=== PATIENT | male | born 1955 | race Caucasian/White ===

== ENCOUNTER 2020-11-21 13:34 | Inpatient (IN) ==
[2020-11-21] MEDS ORDERED: SODIUM CHLORIDE 0.9% 1000ML 1,000 ML IV ONE (14:08)
[2020-11-21] MEDS ORDERED: ALBUTEROL HFA 8 GM INHALER INH ONE (14:15)
[2020-11-21] MEDS ORDERED: ACETAMINOPHEN 1,000 MG/100 ML VIAL IV STA (14:15)
--- NOTE | 2020-11-21 14:23 | Emergency Department Note ---
Impression & Plan Metastatic disease, Hematuria, Dyspnea on minimal exertion, Pancytopenia ED Provider Note NAME: NATALEE REYNOSO AGE: 65 SEX: M ARRIVES VIA: Walk-In INFORMANT: Patient, ED PROVIDER(S): Narendra Blackburn MD CHIEF COMPLAINT: Shortness of breath. PLAN: Disposition: Admit MEDICAL DECISION MAKING: The patient is a pleasant 65-year-old gentleman with a past medical history of recently diagnosed prostate cancer with metastases which was identified approximately a month ago who presents to the emergency department with worsening shortness of breath and palpitations over the past 24 hours which of ongoing for the past month but worse since getting his second COVID-19 immunization yesterday. He reports feeling some achiness in his arm but his shortness of breath gradually worsening into today with palpitations. A family friend who is had a pulse oximeter and measured his pulse ox which was normal but his heart rate was in the 130s. On arrival it had improved to the 120s. He denies any history of anxiety but both he and his brother who he lives with admit they both have been on edge and anxious since his initial presumptive diagnosis with work-up still in progress and uncertainty about his treatment plan or prognosis. Review of the patient's recent imaging demonstrate pulmonary nodules as well as evidence of bony metastases initially with suspicion of primary rectal cancer however recent colonoscopy excluded this per the patient. He does report intermittent nausea and vomiting and did vomit on the way to the emergency department but denies any nausea at this time. He denies any fevers, chills, cough, diarrhea, urinary symptoms. On arrival the patient is anxious appearing but no acute distress, afebrile, HR 120s and otherwise, stable vital signs. He appears clinically dry. Abdomen is benign. EKG without overt acute ischemia. CXR negative for acute cardiopulmonary process. WBC 2.5, H/H 97.7/28.2, and platelets 45K all decreased from October 29. Chemistry without acidosis. Phosphorus 1.0 with repletion initiated. Electrolytes unremarkable. Alk phos 1100 similar to prior. AST 65, nonspecific. Otherwise, LFTs without significant abnormality. Troponin negative/undetectable. BNP wnl. UA without convincing evidence of infection. Covid-19 PCR negative. Influenza and RSV PCR negative. CTA chest and CT abdomen/pelvis perofrmed. Negative for PE however interval progression of patient's metastatic disease is noted. Finding reviewed with the patient and he does reports he lives in an area where they frequently encounter Ticks and so Lyme screen and Anaplasma testing performed given TCP. He also reports he has had ongoing blood in his urine but denies bloody or black stool. Suspect anemia may be related to patient's metastatic disease. Iron studies performed. Given patient's symptoms in the setting of progression of anemia and metastatic disease, reasonable to admit the patient for further management. The patient and his brother at the bedside agree. Case was discussed with Nell Fuentes, with [facility] hospitalist, who will evaluate the patient for admission. Triage Nursing notes reviewed and agree them. Prior medical records reviewed Vital Signs: reviewed and remarkable for tachycardia. Differential diagnosis: Reactive airway disease, pneumonia, pneumothorax, COPD, CHF, infections, cardiac ischemia, pulmonary embolism, musculoskeletal, gastrointestinal, as well as other pathologies. ER treatment provided: See below. Diagnostics interpreted by me: ECG: Sinus tachycardia, 120 bpm, no ectopy, nonspecific ST abnormality, no overt ST elevation or depression, QTC 424, QRS 66. Cardiac Monitoring: An order for continuous cardiac monitoring was placed and demonstrated Sinus tachycardia, 120 bpm, no ectopy. Laboratory studies: See below Imaging studies: See below Consultation(s): Case was discussed with Nell Fuentes, with Dr. Carvalho, [facility], who will evaluate the patient for admission. HPI: The patient is a pleasant 65-year-old gentleman with a past medical history of recently diagnosed prostate cancer with metastases which was identified approximately a month ago who presents to the emergency department with worsening shortness of breath and palpitations over the past 24 hours which of ongoing for the past month but worse since getting his second COVID-19 immunization yesterday. He reports feeling some achiness in his arm but his shortness of breath gradually worsening into today with palpitations. A family friend who is had a pulse oximeter and measured his pulse ox which was normal but his heart rate was in the 130s. On arrival it had improved to the 120s. He denies any history of anxiety but both he and his brother who he lives with admit they both have been on edge and anxious since his initial presumptive diagnosis with work-up still in progress and uncertainty about his treatment plan or prognosis. Review of the patient's recent imaging demonstrate pulmonary nodules as well as evidence of bony metastases initially with suspicion of primary rectal cancer however recent colonoscopy excluded this per the patient. He does report intermittent nausea and vomiting and did vomit on the way to the emergency department but denies any nausea at this time. He denies any fevers, chills, cough, diarrhea, urinary symptoms. ROS: See above HPI for pertinent positives & negatives. A total of 10 systems reviewed and were otherwise negative. PAST MEDICAL HISTORY:See Below PAST SURGICAL HISTORY:See Below FAMILY HISTORY:See Below SOCIAL HISTORY:See Below HOME MEDICATIONS:See Below ALLERGIES:See Below VITALS:See Below PHYSICAL EXAMINATION: GENERAL: Awake, alert, fatigued-appearing, in no distress HENT: Normocephalic, atraumatic. Oropharynx with dry mucous membranes and otherwise unremarkable. EYES: Normal conjunctiva. Sclera non-icteric. NECK: Supple. No nuchal rigidity. FROM. No JVD. RESPIRATORY: Clear to auscultation. CARDIAC: Regular rate, normal rhythm. Extremities warm and well perfused. Pulses equal. ABDOMEN: Soft, non-distended. No tenderness to palpation. No rebound or guarding. No masses. RECTAL: Deferred. MUSCULOSKELETAL: Chest examination reveals no tenderness. The back is symmetrical on inspection without obvious abnormality. There is no CVA tenderness to palpation. No joint edema. LOWER EXTREMITIES: Calves are equal size bilaterally and non-tender. No edema. No discoloration. NEURO: Normal sensorium. No sensory or motor deficits noted. SKIN: No rash or jaundice noted. Narendra Blackburn MD Past Med/Surg History Medical History Degenerative disc disease Hearing loss Hyperlipidemia Lumbar spinal stenosis Mass of colon with enlarged lymph nodes Renal colic on right side Tinnitus Surgical History History of appendectomy History of colonoscopy History of tonsillectomy Family History Other Cancer Colorectal cancer Heart disease Lung disease Social History Smoking Status: Never smoker Second Hand Exposure: No; Hx Alcohol Use: No Hx Substance Use: No Preferred Language: Sinhala Communication Ability: Effective Hazmat Cdl A Driver Required: No Beliefs That Will Affect Care: None marital status: Single Current Living Situation: Family Other Information That Helps Us Care for You: No Feels Safe at Home: Yes Safety Concerns: Feels Safe At This Time Assistive Devices: None Allergies Allergies Allergy/AdvReac Type Severity Reaction Status Date / Time No Known Allergies Allergy Mild Verified 11/21/20 14:30 Home Meds Home Medications Medication Instructions Recorded Confirmed multivitamin 1 tab PO QAM 10/29/20 11/21/20 simvastatin 10 mg PO HS 10/29/20 11/21/20 naproxen sodium [Aleve] 440 mg PO BID PRN 11/06/20 11/21/20 Results & Data (ED) Vital Signs Vital Signs - 24 hr 11/21/20 13:43 11/21/20 14:41 Temperature 36.8 C Temperature Source Oral Pulse Rate 120 H Pulse Rhythm Regular Pulse Strength Normal Respiratory Rate 22 Respiratory Effort / Characteristics Non-Labored Respiratory Depth Normal Respiratory Pattern Regular Blood Pressure 138/86 Blood Pressure Mean 103 Blood Pressure Position Sitting Pulse Oximetry 98 95 Oxygen Delivery Method Room Air Sepsis Recent Fever Within 48 Hours No Sepsis New/Unexplained Change in Mental Status No Sepsis Action Taken by Nursing No Action Required Laboratory Data Attestation: I reviewed the patient's lab results. Result diagrams: 11/22/20 23:20 11/22/20 06:07 Lab Results 11/21/20 11/21/20 11/21/20 Range/Units 14:43 14:43 14:43 WBC 2.57 L (4.8-10.8) K/uL RBC 3.46 L (4.7-6.1) M/uL Hgb 10.1 L (14.0-18.0) g/dL Hct 29.0 L (42-52) % MCV 83.8 (80-100) fL MCH 29.2 (25-34) pg MCHC 34.8 (32-36) g/dL RDW Std Deviation 42.3 (36.4-46.3) fL RDW Coeff of Rosetta 14.1 (11.5-14.5) % Plt Count 45 L (130-400) K/uL MPV 9.8 (7.4-10.4) fL Reticulocyte % (Auto) 1.6 (0.5-2.0) % Reticulocyte # 0.06 (0.02-0.10) 10^6/uL Absolute Nucleated RBC 0.21 H (0-0) K/uL Nucleated RBC % (auto) 8.0 % Neutrophils % (Manual) 59.1 % Lymphocytes % (Manual) 30.4 % Monocytes % (Manual) 5.2 % Basophils % (Manual) 0.9 % Metamyelocytes % (Man) 0.9 % Myelocytes % (Man) 3.5 % Neutrophils # (Manual) 1.52 (1.4-6.5) K/uL Total Absolute Neuts 1.52 (1.4-6.5) K/uL Lymphocytes # (Manual) 0.78 L (1.2-3.4) K/uL Total Abs Lymphocytes 0.78 L (1.2-3.4) K/uL Monocytes # (Manual) 0.13 (0.11-0.59) K/uL Basophils # (Manual) 0.02 (0-0.2) K/uL Metamyelocytes # (Man) 0.02 H (0-0) K/uL Myelocytes # (Manual) 0.09 H (0-0) K/uL Platelet Estimate SIGNIFIC DECREASED (Normal) Polychromasia 1+ PT 11.1 (9.0-12.0) Seconds INR 1.1 (0.9-1.1) Sodium 138 (136-145) mmol/L Potassium 4.0 (3.5-5.1) mmol/L Chloride 108 H (98-107) mmol/L Carbon Dioxide 24 (21-32) mmol/L Anion Gap 6.0 (3-11) BUN 20 H (7-18) mg/dl Creatinine 1.13 (0.6-1.4) mg/dl Est Cr Clr Drug Dosing 63.8 ml/min Est GFR ( Amer) 78.1 Est GFR (Non-Af Amer) 67.4 BUN/Creatinine Ratio 18.1 (10-20) Glucose 109 H (70-99) mg/dl Calcium 9.4 (8.5-10.1) mg/dl Phosphorus 1.0 L* (2.5-4.9) mg/dl Magnesium 2.2 (1.8-2.4) mg/dl Iron 132 (35-175) mcg/dl TIBC 247 L (250-450) mcg/dl Transferrin 191 L (200-360) mg/dl Ferritin 2136.6 H (8-388) ng/ml Total Bilirubin 1.3 H (0.2-1) mg/dl Direct Bilirubin 0.1 (0-0.2) mg/dl AST 65 H (15-37) U/L ALT 55 (12-78) U/L Alkaline Phosphatase 1162 H (45-117) U/L Troponin I < 0.015 (0-0.045) ng/ml NT-Pro-B Natriuret Pep 24 (0-900) pg/ml Total Protein 6.8 (6.4-8.2) gm/dl Albumin 3.4 (3.4-5.0) gm/dl Globulin 3.4 (2.5-4.0) gm/dl Albumin/Globulin Ratio 1.0 (0.9-2) Lipase 129 (73-393) U/L TSH 0.839 (0.300-4.500) uIu/ml Anaplasma Smear See Comment Lyme Disease IgG Ab (Negative) Lyme Disease IgM Ab (Negative) COVID-19 Eval Order SARS-CoV-2 (PCR) (Negative) Influenza Type A (PCR) (Neg) Influenza Type B (PCR) (Neg) RSV (RT-PCR) (Neg) Blood Type Antibody Screen Crossmatch 11/21/20 11/21/20 11/21/20 Range/Units 14:43 14:43 16:43 WBC (4.8-10.8) K/uL RBC (4.7-6.1) M/uL Hgb (14.0-18.0) g/dL Hct (42-52) % MCV (80-100) fL MCH (25-34) pg MCHC (32-36) g/dL RDW Std Deviation (36.4-46.3) fL RDW Coeff of Rosetta (11.5-14.5) % Plt Count (130-400) K/uL MPV (7.4-10.4) fL Reticulocyte % (Auto) (0.5-2.0) % Reticulocyte # (0.02-0.10) 10^6/uL Absolute Nucleated RBC (0-0) K/uL Nucleated RBC % (auto) % Neutrophils % (Manual) % Lymphocytes % (Manual) % Monocytes % (Manual) % Basophils % (Manual) % Metamyelocytes % (Man) % Myelocytes % (Man) % Neutrophils # (Manual) (1.4-6.5) K/uL Total Absolute Neuts (1.4-6.5) K/uL Lymphocytes # (Manual) (1.2-3.4) K/uL Total Abs Lymphocytes (1.2-3.4) K/uL Monocytes # (Manual) (0.11-0.59) K/uL Basophils # (Manual) (0-0.2) K/uL Metamyelocytes # (Man) (0-0) K/uL Myelocytes # (Manual) (0-0) K/uL Platelet Estimate (Normal) Polychromasia PT (9.0-12.0) Seconds INR (0.9-1.1) Sodium (136-145) mmol/L Potassium (3.5-5.1) mmol/L Chloride (98-107) mmol/L Carbon Dioxide (21-32) mmol/L Anion Gap (3-11) BUN (7-18) mg/dl Creatinine (0.6-1.4) mg/dl Est Cr Clr Drug Dosing ml/min Est GFR ( Amer) Est GFR (Non-Af Amer) BUN/Creatinine Ratio (10-20) Glucose (70-99) mg/dl Calcium (8.5-10.1) mg/dl Phosphorus (2.5-4.9) mg/dl Magnesium (1.8-2.4) mg/dl Iron (35-175) mcg/dl TIBC (250-450) mcg/dl Transferrin (200-360) mg/dl Ferritin (8-388) ng/ml Total Bilirubin (0.2-1) mg/dl Direct Bilirubin (0-0.2) mg/dl AST (15-37) U/L ALT (12-78) U/L Alkaline Phosphatase (45-117) U/L Troponin I (0-0.045) ng/ml NT-Pro-B Natriuret Pep (0-900) pg/ml Total Protein (6.4-8.2) gm/dl Albumin (3.4-5.0) gm/dl Globulin (2.5-4.0) gm/dl Albumin/Globulin Ratio (0.9-2) Lipase (73-393) U/L TSH (0.300-4.500) uIu/ml Anaplasma Smear Lyme Disease IgG Ab Negative (Negative) Lyme Disease IgM Ab Negative (Negative) COVID-19 Eval Order [facility]Rsv at [facility] SARS-CoV-2 (PCR) NEGATIVE (Negative) Influenza Type A (PCR) Negative (Neg) Influenza Type B (PCR) Negative (Neg) RSV (RT-PCR) Negative (Neg) Blood Type Antibody Screen Crossmatch 11/21/20 Range/Units 16:47 WBC (4.8-10.8) K/uL RBC (4.7-6.1) M/uL Hgb (14.0-18.0) g/dL Hct (42-52) % MCV (80-100) fL MCH (25-34) pg MCHC (32-36) g/dL RDW Std Deviation (36.4-46.3) fL RDW Coeff of Rosetta (11.5-14.5) % Plt Count (130-400) K/uL MPV (7.4-10.4) fL Reticulocyte % (Auto) (0.5-2.0) % Reticulocyte # (0.02-0.10) 10^6/uL Absolute Nucleated RBC (0-0) K/uL Nucleated RBC % (auto) % Neutrophils % (Manual) % Lymphocytes % (Manual) % Monocytes % (Manual) % Basophils % (Manual) % Metamyelocytes % (Man) % Myelocytes % (Man) % Neutrophils # (Manual) (1.4-6.5) K/uL Total Absolute Neuts (1.4-6.5) K/uL Lymphocytes # (Manual) (1.2-3.4) K/uL Total Abs Lymphocytes (1.2-3.4) K/uL Monocytes # (Manual) (0.11-0.59) K/uL Basophils # (Manual) (0-0.2) K/uL Metamyelocytes # (Man) (0-0) K/uL Myelocytes # (Manual) (0-0) K/uL Platelet Estimate (Normal) Polychromasia PT (9.0-12.0) Seconds INR (0.9-1.1) Sodium (136-145) mmol/L Potassium (3.5-5.1) mmol/L Chloride (98-107) mmol/L Carbon Dioxide (21-32) mmol/L Anion Gap (3-11) BUN (7-18) mg/dl Creatinine (0.6-1.4) mg/dl Est Cr Clr Drug Dosing ml/min Est GFR ( Amer) Est GFR (Non-Af Amer) BUN/Creatinine Ratio (10-20) Glucose (70-99) mg/dl Calcium (8.5-10.1) mg/dl Phosphorus (2.5-4.9) mg/dl Magnesium (1.8-2.4) mg/dl Iron (35-175) mcg/dl TIBC (250-450) mcg/dl Transferrin (200-360) mg/dl Ferritin (8-388) ng/ml Total Bilirubin (0.2-1) mg/dl Direct Bilirubin (0-0.2) mg/dl AST (15-37) U/L ALT (12-78) U/L Alkaline Phosphatase (45-117) U/L Troponin I (0-0.045) ng/ml NT-Pro-B Natriuret Pep (0-900) pg/ml Total Protein (6.4-8.2) gm/dl Albumin (3.4-5.0) gm/dl Globulin (2.5-4.0) gm/dl Albumin/Globulin Ratio (0.9-2) Lipase (73-393) U/L TSH (0.300-4.500) uIu/ml Anaplasma Smear Lyme Disease IgG Ab (Negative) Lyme Disease IgM Ab (Negative) COVID-19 Eval Order SARS-CoV-2 (PCR) (Negative) Influenza Type A (PCR) (Neg) Influenza Type B (PCR) (Neg) RSV (RT-PCR) (Neg) Blood Type O Positive Antibody Screen NEGATIVE Crossmatch See Detail Administered Medications Acetaminophen (Acetaminophen 325 Mg Tab) 650 mg PO Q4H PRN PRN Reason: Pain or Fever Stop: 12/21/20 20:52 Last Admin: 11/22/20 16:56 Dose: 650 mg Documented by: [id number] Admin: 11/22/20 00:19 Dose: 650 mg Documented by: [id number] Bicalutamide (Bicalutamide 50 Mg Tab) 50 mg PO QAM [facility] Stop: 12/22/20 15:14 Last Admin: 11/22/20 16:12 Dose: 50 mg Documented by: [id number] Cosigned by: [id number] Multivitamins (Multivitamin Tab) 1 tab PO QAM LINA Stop: 12/22/20 08:59 Last Admin: 11/22/20 08:43 Dose: 1 tab Documented by: [id number] Potassium Phosphate (Pot Phosphate Monobasic W/ Sod Tab) 1 tab PO QID LINA Stop: 12/21/20 20:59 Last Admin: 11/22/20 20:36 Dose: 1 tab Documented by: [id number] Admin: 11/22/20 16:52 Dose: 1 tab Documented by: [id number] Admin: 11/22/20 13:39 Dose: 1 tab Documented by: [id number] Admin: 11/22/20 08:42 Dose: 1 tab Documented by: [id number] Admin: 11/21/20 22:08 Dose: 1 tab Documented by: [id number] Simvastatin (Simvastatin 10 Mg Tab) 10 mg PO HS LINA Stop: 12/21/20 20:59 Last Admin: 11/22/20 20:36 Dose: 10 mg Documented by: [id number] Admin: 11/21/20 22:08 Dose: 10 mg Documented by: [id number] Discontinued Medications Albuterol (Albuterol Hfa 8 Gm Inhaler) 2 puffs INH NOW ONE Stop: 11/21/20 14:16 Last Admin: 11/21/20 14:49 Dose: 2 puffs Documented by: [id number] Guaifenesin (Guaifenesin 600 Mg Tabcr) 600 mg PO Q12 LINA Stop: 12/21/20 20:59 Last Admin: 11/22/20 01:08 Dose: Not Given Documented by: [id number] Sodium Chloride (Nss 1000ml) 1,000 mls @ 999 mls/hr IV .Q1H1M ONE Stop: 11/21/20 15:08 Last Infusion: 11/21/20 15:51 Dose: 0 mls/hr Documented by: [id number] Admin: 11/21/20 14:49 Dose: 999 mls/hr Documented by: [id number] Acetaminophen (Ofirmev) 1,000 mg in 100 mls @ 400 mls/hr IV NOW STA Stop: 11/21/20 14:29 Last Infusion: 11/21/20 15:35 Dose: 0 mls/hr Documented by: [id number] Admin: 11/21/20 14:49 Dose: 400 mls/hr Documented by: [id number] Potassium Phosphate 9 mmol/ (Sodium Chloride) 253 mls @ 125 mls/hr IV 1615 ONE Stop: 11/21/20 18:16 Last Infusion: 11/21/20 18:48 Dose: 0 mls/hr Documented by: [id number] Admin: 11/21/20 16:27 Dose: 125 mls/hr Documented by: [id number] Sodium Chloride (Nss 1000ml) 1,000 mls @ 100 mls/hr IV .Q10H LINA Stop: 11/22/20 05:44 Last Infusion: 11/22/20 08:09 Dose: 0 mls/hr Documented by: [id number] Admin: 11/21/20 22:09 Dose: 100 mls/hr Documented by: [id number] Potassium Phosphate 6 mmol/ (Sodium Chloride) 252 mls @ 168 mls/hr IV 1999 ONE Stop: 11/21/20 21:29 Last Infusion: 11/22/20 00:21 Dose: 0 mls/hr Documented by: [id number] Admin: 11/21/20 21:33 Dose: 168 mls/hr Documented by: [id number] Sodium Phosphate 30 mmol/ (Sodium Chloride) 510 mls @ 88 mls/hr IV ONE ONE Stop: 11/22/20 18:47 Last Infusion: 11/22/20 19:47 Dose: 0 mls/hr Documented by: [id number] Admin: 11/22/20 13:38 Dose: 88 mls/hr Documented by: [id number] Ioversol (Optiray 320 125ml) 117 ml IV ONCE ONE Stop: 11/21/20 16:01 Last Admin: 11/21/20 16:02 Dose: 117 ml Documented by: [id number] Morphine Sulfate (Morphine Sulfate 2 Mg/Ml Carp) 2 mg IV NOW STA Stop: 11/21/20 17:57 Last Admin: 11/21/20 18:03 Dose: 2 mg Documented by: [id number] Discharge Plan Visit Data Chief Complaint: Arrhythmia/Palpitations Stated Complaint: FAST HEART RATE ED Provider: Narendra Blackburn Discharge Problem: Metastatic disease, Hematuria, Dyspnea on minimal exertion, Pancytopenia Patient Disposition: Admitted As Inpatient Discharge Instructions Interventions: ED Discharge Assessment Last Done: 11/21/20 20:07 Discharge Problem: Metastatic disease Qualifiers: Area of secondary neoplastic involvement: unspecified site Qualified Code(s): C79.9 - Secondary malignant neoplasm of unspecified site Hematuria Qualifiers: Hematuria type: gross Qualified Code(s): R31.0 - Gross hematuria
[2020-11-21 14:56] LABS: Hemoglobin 10.1 g/dL (14.0-18.0); Mean Corpuscular Hemoglobin 29.2 pg (25-34); Mean Corpuscular Hgb Conc 34.8 g/dL (32-36); Mean Corpuscular Volume 83.8 fL (80-100); Nucleated RBC # (auto) 0.21 K/uL (0-0); RDW Coefficient of Variation 14.1 % (11.5-14.5); RDW Standard Deviation 42.3 fL (36.4-46.3); Red Blood Count 3.46 M/uL (4.7-6.1); White Blood Count 2.57 K/uL (4.8-10.8)
[2020-11-21 15:06] LABS: INR 1.1 (0.9-1.1); Prothrombin Time 11.1 Seconds (9.0-12.0)
[2020-11-21 15:13] LABS: Alanine Aminotransferase 55 U/L (12-78); Albumin Level 3.4 gm/dl (3.4-5.0); Aspartate Aminotransferase 65 U/L (15-37); BUN Creatinine Ratio 18.1 (10-20); Bilirubin Direct 0.1 mg/dl (0-0.2); Blood Urea Nitrogen 20 mg/dl (7-18); Calcium 9.4 mg/dl (8.5-10.1); Carbon Dioxide 24 mmol/L (21-32); Chloride 108 mmol/L (98-107); Creatinine Clr Calc Pharmacy 63.8 ml/min; Est GFR (African American) 78.1; Est GFR (Non-African American) 67.4; Glucose 109 mg/dl (70-99); Lipase 129 U/L (73-393); Magnesium 2.2 mg/dl (1.8-2.4); Sodium 138 mmol/L (136-145)
[2020-11-21 15:21] LABS: Mean Platelet Volume 9.8 fL (7.4-10.4); Platelet Count 45 K/uL (130-400)
[2020-11-21 15:22] LABS: ALC (manual) 0.78 K/uL (1.2-3.4); ANC (manual) 1.52 K/uL (1.4-6.5); Basophils # (manual) 0.02 K/uL (0-0.2); Basophils % (manual) 0.9 %; Lymphocytes # (manual) 0.78 K/uL (1.2-3.4); Lymphocytes % (manual) 30.4 %; Metamyelocytes # (manual) 0.02 K/uL (0-0); Metamyelocytes % (manual) 0.9 %; Monocytes # (manual) 0.13 K/uL (0.11-0.59); Monocytes % (manual) 5.2 %; Myelocytes # (manual) 0.09 K/uL (0-0); Myelocytes % (manual) 3.5 %; Neutrophils # (manual) 1.52 K/uL (1.4-6.5); Neutrophils % (manual) 59.1 %; Platelet Estimate SIGNIFIC DECREASED (Normal); Polychromasia 1+
[2020-11-21 15:37] LABS: Alkaline Phosphatase 1162 U/L (45-117); Bilirubin,Total 1.3 mg/dl (0.2-1); Globulin 3.4 gm/dl (2.5-4.0); NT Pro B Type Natriuretic Pept 24 pg/ml (0-900); Thyroid Stimulating Hormone 0.839 uIu/ml (0.300-4.500); Total Protein 6.8 gm/dl (6.4-8.2); Troponin I < 0.015 ng/ml (0-0.045)
[2020-11-21 15:39] LABS: Influenza A virus by PCR Negative (Neg); Influenza B virus by PCR Negative (Neg); RSV by PCR Negative (Neg); SARS CoV2 RNA(COVID-19) InHosp NEGATIVE (Negative)
[2020-11-21] MEDS ORDERED: POTASSIUM PHOS 3 MMOL/1 ML INFUSION IV STA ×2 (15:46→19:32)
[2020-11-21] MEDS ORDERED: OPTIRAY 320 125ml IV ONE (16:00)
[2020-11-21] MEDS ORDERED: POTASSIUM PHOSPHATE 9 MMOL in SODIUM CHLORIDE 0.9% 250 ML IV ONE (16:15)
[2020-11-21 16:19] LABS: Ferritin 2136.6 ng/ml (8-388); Iron 132 mcg/dl (35-175); Total Iron Binding Capacity 247 mcg/dl (250-450); Transferrin 191 mg/dl (200-360)
[2020-11-21 16:21] LABS: Reticulocyte % 1.6 % (0.5-2.0); Reticulocytes # 0.06 10^6/uL (0.02-0.10)
--- NOTE | 2020-11-21 16:21 | XRay Report ---
XR chest 1V portable HISTORY: Atypical Chest Pain COMPARISON: Chest CTA 10/29/2020. FINDINGS: There again noted multiple scattered pulmonary nodules and diffuse interstitial thickening consistent with metastatic disease. Bilateral hilar lymphadenopathy is also unchanged. The heart is b orderline enlarged. Left basilar linear densities consistent with subsegmental atelectasis. No pneumo thorax. No pleural fusions. IMPRESSION: No change in the scattered pulmonary nodules, bilateral hilar lymphadenopathy, and interstitial thick ening consistent with metastatic disease. ACT 112: Negative or not required by law. Electronically signed by: Jin Kumar M.D. 11/21/2020 4:20 PM
--- NOTE | 2020-11-21 16:29 | CT Scan Report ---
CHEST CTA for PULMONARY ARTERIES CT DOSE: HISTORY: Atypical chest pain. Nausea. Vomiting. TECHNIQUE: Multiaxial CT images of the chest were performed following the intravenous administration of contrast to evaluate the pulmonary arteries. Maximal intensity projection images were also obtaine d. A dose lowering technique was utilized adhering to the principles of ALARA. COMPARISON STUDY: Chest CTA 10/29/2020. FINDINGS: Normal caliber thoracic aorta with no evidence for dissection. The heart is normal in size. No pleural or pericardial effusions. No filling defects within the pulmonary arteries to suggest pul monary embolus. Normal caliber esophagus. No pneumothorax. Mild diffuse interstitial thickening persi sts. Multiple scattered pulmonary nodules are again noted consistent with metastatic disease. Scatter ed pleural nodularity also consistent with metastatic disease. There is been interval progression of the hilar lymphadenopathy and pleural/pulmonary metastatic disease compared to the prior study. Areas of interstitial thickening likely represent lymphangitic spread of tumor. This most pronounced withi n the right upper lobe. Osseous metastatic disease with adjacent soft tissue components has also prog ressed. There is paraspinal soft tissue extension of tumor. There is also suggestion of mild epidural extension of tumor within the mid thoracic region. However, no significant central canal narrowing. IMPRESSION: 1. No evidence for pulmonary embolus. 2. Interval progression of metastatic disease within the chest as described above. 3. Osseous metastatic disease with adjacent soft tissue components has also progressed. This includes paraspinal soft tissue abnormality and mild epidural extension of tumor within the mid thoracic giselle on. However, no significant central canal narrowing at this time. ACT 112: Negative or not required by law. Electronically signed by: Jin Kumar M.D. 11/21/2020 4:27 PM
--- NOTE | 2020-11-21 16:35 | CT Scan Report ---
ABDOMEN AND PELVIS CT WITH IV CONTRAST CT DOSE: 875.79 mGy.cm HISTORY: Generalized abdominal pain. Nausea. Vomiting. Metastatic disease. TECHNIQUE: Multiaxial CT images of the abdomen and pelvis were performed following the use of intrave nous contrast. A dose lowering technique was utilized adhering to the principles of ALARA. COMPARISON STUDY: Abdomen and pelvis CT 10/29/2020. FINDINGS: Please refer to the same day chest CTA for further evaluation of the lung bases. No pneumop eritoneum. No pneumatosis. Near diffuse osteoblastic metastatic disease is again noted. Retroperitone al and pelvic sidewall lymphadenopathy/masses persist. Heterogeneous and mildly enlarged prostate gla nd is again noted. There is mild bladder wall thickening, unchanged. This could be due to chronic out let obstruction. A few perirectal soft tissue nodules are also noted. Overall, there is been slight p rogression of the metastatic disease compared to the prior study. Dominant left pelvic sidewall lymph node measures 3.8 x 2.6 cm. This previously measured 3.2 x 2.5 cm. The liver, gallbladder, spleen, a drenal glands, pancreas, and kidneys are unremarkable. No hydronephrosis. Normal caliber abdominal ao rta. The main portal vein is patent. Thickening of the proximal to mid stomach is likely due to under distention. No definite bowel wall thickening or obstruction. Moderate well-formed stool seen through out the colon. IMPRESSION: 1. Slight progression of the metastatic disease within the abdomen and pelvis as described above. 2. No definite bowel wall thickening or obstruction. 3. Please refer to same day chest CT for further evaluation of the lung bases. ACT 112: Negative or not required by law. Electronically signed by: Jin Kumar M.D. 11/21/2020 4:34 PM
[2020-11-21 17:50] LABS: Lyme Ab IgG w/WB Rflx Negative (Negative); Lyme Ab IgM w/WB Rflx Negative (Negative)
[2020-11-21] MEDS ORDERED: MoRPHine SULFATE 2 MG/ML CARP IV STA (17:56)
--- NOTE | 2020-11-21 18:22 | History & Physical Report ---
Date of Service November 21, 2020 Assessment & Plan (1) Acute blood loss anemia: (2) Hematuria: This is a 65yo M with a PMH of recent diagnosis of metastatic prostate cancer and other medical problems as below who presents with worsening generalized weakness in the setting of ongoing hematuria. Hgb 10.1 today (13.3 on 10/30/19) Symptomatic anemia with exertion Fall precautions, monitor on telemetry In setting of recently diagnosed prostate cancer Blood consent per Dr. Carvalho, type & screen, holding 2u prbcs Urology consult for hematuria, newly dx prostate cancer Repeat H&H at 2300 (3) Metastatic adenocarcinoma to prostate: Recently diagnosed with prostate cancer Chest CTA and Ct abd/pelvis with interval progression of metastatic disease within the chest, adjacent soft tissue Initially thought to be GI etiology; underwent colonoscopy with lower EUS performed and pathology appeared to be most consistent with metastatic prostate adenocarcinoma In the process of establishing with urology and medical oncology at this point with appointments in the next few weeks Urology consulted. PT/OT evaluations for generalized weakness. Dietitian consulted for assistance with nutrition supplementation- endorsing unintentional weight loss of 30 pounds over the past month Pain control, IV fluids, Boost shakes TID (4) Hyperlipidemia: Continue statin DVT Ppx: SCDs in setting of hematuria Code status: FULL PCP: [facility] ordered. Patient seen in collaboration with Dr. Carvalho. Please see addendum. History of Present Illness Chief Complaint: generalized weakness, hematuria, met prostate ca Primary Care Provider: Pramod Whipple DO This is a 65yo M with a PMH of recent diagnosis of metastatic prostate cancer and other medical problems as below who presents with worsening generalized weakness in the setting of ongoing hematuria. Was initially seen in [facility] ER approximately 3 weeks ago for complaint of generalized weakness. Work-up at that time revealed perirectal nodule concerning for neoplasm. Colonoscopy with lower EUS performed and pathology appeared to be most consistent with metastatic prostate adenocarcinoma. Is in the process of establishing with urology and medical oncology at this point with appointments in the next few weeks. Over the past 5 days, has had gross hematuria with clots. This is new for him. Associated with generalized weakness, palpitations with positional change and dyspnea on exertion. He is comfortable at rest right now. Endorses normal appetite but difficulty drinking enough fluids. Unintentional weight loss of 30 pounds in the last month. Is drinking boost shakes 3 times daily. Only pain is from rectal area that has been present for past month. Has been taking ibuprofen BID. Denies any fever, chills, lightheadedness, headache, cough, chest pain, wheezing, nausea, vomiting, abdominal pain, dysuria, diarrhea or constipation. Did have a second dose of Moderna Covid vaccine yesterday. Allergies Allergy/AdvReac Type Severity Reaction Status Date / Time No Known Allergies Allergy Mild Verified 11/21/20 14:30 Home Medications Medication Instructions Recorded Confirmed Type multivitamin 1 tab PO QAM 10/29/20 11/21/20 History simvastatin 10 mg PO HS 10/29/20 11/21/20 History naproxen sodium [Aleve] 440 mg PO BID PRN 11/06/20 11/21/20 History Past Med/Surg History Medical History (Updated 11/21/20 @ 19:40 by Do Alvarado PA-C) Degenerative disc disease Hearing loss Hyperlipidemia Lumbar spinal stenosis Mass of colon with enlarged lymph nodes Renal colic on right side Tinnitus Surgical History (Updated 11/21/20 @ 19:36 by Do Alvarado PA-C) History of appendectomy History of colonoscopy History of tonsillectomy Family History Other Cancer Colorectal cancer Heart disease Lung disease Social History Smoking Status: Never smoker Second Hand Exposure: No; Hx Alcohol Use: No Hx Substance Use: No Preferred Language: Puerto Rican Nuclear Technologist Required: No Beliefs That Will Affect Care: None Current Living Situation: Family Feels Safe at Home: Yes Assistive Devices: Glasses Review of Systems Review of Systems: At least ten systems reviewed and negative except as noted in the HPI. Physical Exam Physical Exam: General Appearance: WD/WN, vitals as above, NAD, sitting up in bed, pleasant, conversing easily Head: normocephalic, atraumatic Eyes: normal inspection, PERRL, conjunctivae normal, anicteric sclerae ENT: external ear and nose normal, oropharynx normal Neck: normal visual inspection, trachea midline, no thyromegaly Respiratory: normal respiratory effort, lungs clear to auscultation, no wheeze, rales, rhonchi. No accessory muscle use Cardiovascular: tachycardic rate, rhythm, no murmur appreciated, normal peripheral pulses, no BLE edema. Vessels: no JVD Chest: normal inspection of chest Abdomen/GI: normal bowel sounds, soft, nontender, no hepatosplenomegaly Extremities/Musculoskeletal: no cyanosis or clubbing, extremities motor strength 5/5 Neurologic: PERRL, EOMI, accommodation nl, no face palsy, no dysarthria, CN's II-XI intact bilaterally and moves all extremities Psychiatric: A+Ox3, euthymic affect Skin: no rashes, normal color, warm/dry Results & Data Results & Data ([facility]) Vital Signs (Past 12 Hours) Vital Signs Temp Pulse Pulse Resp BP BP Pulse Ox 11/21/20 18:04 101 H 18 131/65 99 11/21/20 15:51 106 H 20 106/88 94 11/21/20 14:41 95 11/21/20 13:43 36.8 C 120 H 22 138/86 98 Laboratory Results Short CBC 11/21/20 11/21/20 Range/Units 14:43 14:43 WBC 2.57 L (4.8-10.8) K/uL Hgb 10.1 L (14.0-18.0) g/dL Hct 29.0 L (42-52) % Plt Count 45 L (130-400) K/uL Creatinine 1.13 (0.6-1.4) mg/dl BMP 11/21/20 14:43 Sodium 138 Potassium 4.0 Chloride 108 H Carbon Dioxide 24 BUN 20 H Creatinine 1.13 Glucose 109 H Calcium 9.4 Cardiac Enzymes 11/21/20 Range/Units 14:43 Troponin I < 0.015 (0-0.045) ng/ml Liver Function 11/21/20 Range/Units 14:43 Total Bilirubin 1.3 H (0.2-1) mg/dl Direct Bilirubin 0.1 (0-0.2) mg/dl AST 65 H (15-37) U/L ALT 55 (12-78) U/L Alkaline Phosphatase 1162 H (45-117) U/L Albumin 3.4 (3.4-5.0) gm/dl Diagnostic Findings CXR: IMPRESSION: No change in the scattered pulmonary nodules, bilateral hilar lymphadenopathy, and interstitial thickening consistent with metastatic disease. Chest CTA: IMPRESSION: 1. No evidence for pulmonary embolus. 2. Interval progression of metastatic disease within the chest as described above. 3. Osseous metastatic disease with adjacent soft tissue components has also progressed. This includes paraspinal soft tissue abnormality and mild epidural extension of tumor within the mid thoracic region. However, no significant central canal narrowing at this time. CT abd/pelvis: IMPRESSION: 1. Slight progression of the metastatic disease within the abdomen and pelvis as described above. 2. No definite bowel wall thickening or obstruction. 3. Please refer to same day chest CT for further evaluation of the lung bases. Supervising Physician Co-Signing Physician Notes Patient seen and examined by me, care coordinated with Do Alvarado PA-C, please refer to her note above for further detail. Patient is a 65-year-old male, with unfortunate new diagnosis of prostate adenocarcinoma with metastases, who now presents with hematuria of 5 days, palpitations, pancytopenia, hypophosphatemia and weight loss of 30 pounds. Currently patient is lying in bed, in no acute distress. He denies any shortness of breath, chest pain or palpitations at rest. Has mild abdominal discomfort however not significant. Lungs are clear to auscultation bilaterally, without any wheezing rhonchi or crackles. Heart sounds regular. Abdomen soft, nondistended, positive bowel sounds, nontender to palpation. There is no lower extremity edema noted. Patient was extremities spontaneously. He is alert and oriented answering questions appropriately. Discussed in detail that we will closely monitor his blood counts, and I signed the blood consent, left the blood consent with the patient for review. Discussed with the patient urology consultation for tomorrow as well as dietitian consult. Ordered peripheral smear for evaluation of pancytopenia. Seema Carvalho MD
[2020-11-21] MEDS ORDERED: SODIUM CHLORIDE 0.9% 1000ML 1,000 ML IV SCH (19:45)
[2020-11-21] MEDS ORDERED: POTASSIUM PHOSPHATE 6 MMOL in SODIUM CHLORIDE 0.9% 250 ML IV ONE (20:00)
[2020-11-21] MEDS ORDERED: SODIUM CHLORIDE 0.9% 250 ML IV PRN (20:53)
[2020-11-21] MEDS ORDERED: POLYETHYLENE (MIRALAX) 17 GM PACK PO PRN (20:53)
[2020-11-21] MEDS ORDERED: ONDANSETRON INJ 2 MG/ML 2 ML VIAL IV PRN (20:53)
[2020-11-21] MEDS ORDERED: guaiFENesin 600 MG TABCR PO SCH (21:00)
[2020-11-21] MEDS: SIMVASTATIN 10 MG TAB PO SCH (22:08)
[2020-11-21] MEDS: POT PHOSPHATE MONOBASIC W/ SOD TAB PO SCH (22:08)
[2020-11-21 23:11] LABS: Appearance Urine Clear (Clear); Bacteria Urine Automated Negative (Negative); Bilirubin Urine Negative (Negative); Blood Urine 3+ (Negative); Color Urine Yellow; Epithelial Cell Urine Auto 0-5 /lpf (0-5); Glucose Urine UA Negative (Negative); Ketones Urine Negative (Negative); Leukocyte Esterase Urine Negative (Negative); Nitrite Urine Negative (Negative); Protein Urine 1+ (Negative); RBC Urine Automated >30 /hpf (0-4); Specific Gravity Urine 1.041 (1.000-1.030); Urobilinogen Urine Negative (Negative); pH Urine 5.5 (4.5-7.5)
[2020-11-21 23:17] LABS: Hematocrit (blood only) 28.2 % (42-52); Hemoglobin 9.7 g/dL (14.0-18.0)
[2020-11-22] MEDS: ACETAMINOPHEN 325 MG TAB PO PRN ×2 (00:19→16:56)
--- NOTE | 2020-11-22 06:05 | Urology Consultation ---
Date of Consultation November 22, 2020 Assessment & Plan (1) Metastatic adenocarcinoma to prostate: Patient has been admitted to the hospital by the medical service. Serial hemoglobin and hematocrits are being followed As the patient is not having any difficulty urinating there is no need for Snow catheter placement or continuous bladder irrigation at the present time. Dr. Escobedo will evaluate the patient later today to discuss treatment options of the patient's prostate cancer with him. ATTENDING NOTE: Agree with above. Independently evaluated, assessed, examined, and discussed. Discussed findings. Discussed prostate cancer. Patient appears to have mets to spine with significant abdominal lymphadenopathy. Biopsy of rectal mass most consistent with prostate cancer. Discussed options. Need PSA to start therapy. Due to significant bone mets will need Casodex started CARMELA with plan for either Lupron after or if able to get Firmagon would start firmagon immediately. Otherwise good health prior to issues a few months ago. Would be excellent candidate for Aggressive therapy. Due to spinal involvement may be reasonable to consult Rad-Onc this week to discuss options for radiation to spinal column. Also discussed Oncology options such as Chemotherapy with excellent performance status. GH will need to be monitored. Likely need scope at some point, but will need management of electroplating technician more acutely. Plan to monitor. Avoid catheter for now unless significant bladder neck obstruction is discovered. Greater than 55 minutes spent bedside with patient with an additional 65 minutes reviewing patient chart, information, lab work, work-up with biopsy, imaging, and pathology. Patient's imaging was reviewed interpreted by myself. Patient appears to have spinal lesion with close proximity to spinal cord. Patient is not having any considerable neuropathic or neurologic complaints or issues at this time. He still able to void. Is not having any major bowel complaints. Has not noticed any numbness tingling or paresthesia of the groin lower extremity or other area. Patient has not noticed any ambulating issues or balance disturbances. Did discuss possibility of spinal cord compression and development of lower extremity/bowel or bladder issues. Lesion is fairly high and may cause more considerable issues as well. Patient has not had bone scan. He is unaware of a PSA value that he has had prior. Reviewed pathologic analysis. If necessary additional biopsies can be completed however at this point will initiate the androgen blockage with Casodex as soon as possible. We will look into a GnRH antagonist such as Firmagon and will work on prior Auth/approval if able to facilitate through the inpatient pharmacy. If not will plan to continue the Casodex as outpatient with plans for initiation of Lupron after appropriate time for androgen blockade. Patient does not know of any prior family history of prostate cancer, prostate issues, or other malignancies. His mother did have a pancreatic cancer however he states this was the only person his family he was aware of who had a malignancy. Patient is unsure if he had undergone screening with PSA prior to this. Has not had considerable lower urinary tract symptoms Up until this point. Bone scan will be set up for the next day in order to assess extent of metastasis. If patient does develop significant neurologic issues concerns of compression or other major issue especially related to spinal lesion or if develops considerable pain may need to consider inpatient assessment with radiation oncology, otherwise, will keep scheduled appointment he has with Dr. Lam in the coming weeks. Patient also is going to be set up with the a oncology visit again in the coming weeks. As mentioned above would likely be excellent candidate for chemotherapy due to high performance status. Will plan to monitor closely. History of Present Illness Reason for Consultation: Hematuria Attending Physician: Manoj Carvalho MD History of Present Illness This is a 65-year-old male who presented to the emergency department last evening secondary to gross hematuria. The patient was seen in the [facility] emergency department approximately 3 weeks ago secondary to generalized weakness. Patient was ultimately seen by gastroenterology who performed a colonoscopy and at that time the patient was found to have some perirectal nodules. Biopsies were taken on 11/06/2020 which revealed a diagnosis of adenocarcinoma of the prostate. Patient was able to be discharged home with plans to establish with oncology and urology as an outpatient. He presented to the emergency department last evening as he has had 5 days of gross hematuria. I asked the patient describes hematuria and he said it is dark red blood. He also notes that he has at times had blood clots in his urine. Despite his hematuria and blood clots he says he has no difficulty voiding. He notes that when he voids he does not have any pain and he does feel as though he can empty his bladder. Concerning his prostate cancer he says he has yet to establish care with a urologist and has not received any oncologic treatment to date. Yesterday in the emergency department the patient did have CT scans of his chest abdomen and pelvis. The chest CT scan did reveal pulmonary nodules as well as hilar adenopathy concerning for metastatic disease. CT scan of the abdomen did show retroperitoneal as well as pelvic adenopathy also concerning for metastatic disease. His prostate was enlarged on the study. Labs were performed which revealed a hemoglobin and hematocrit of 9.7 and 28.2. His white blood cell count was 2.5 and platelet count was 45,000. A chemistry profile did reveal his sodium potassium and creatinine within normal range. A Covid test was noted to be negative. Urinalysis was performed and his urine was yellow on the study but did reveal 3+ blood. At the present time the patient denies any fevers, shakes, chills. He denies any back pain. He denies any abdominal pain or nausea vomiting. Again he has not noting any difficulty voiding. At the time of my exam he is resting comfortably in bed he was not in any distress or discomfort. Allergies Allergy/AdvReac Type Severity Reaction Status Date / Time No Known Allergies Allergy Mild Verified 11/21/20 14:30 Home Medications Medication Instructions Recorded Confirmed Type multivitamin 1 tab PO QAM 10/29/20 11/21/20 History simvastatin 10 mg PO HS 10/29/20 11/21/20 History naproxen sodium [Aleve] 440 mg PO BID PRN 11/06/20 11/21/20 History Patient History Medical History Degenerative disc disease Hearing loss Hyperlipidemia Lumbar spinal stenosis Mass of colon with enlarged lymph nodes Renal colic on right side Tinnitus Surgical History History of appendectomy History of colonoscopy History of tonsillectomy Family History Other Cancer Colorectal cancer Heart disease Lung disease Social History Smoking Status: Never smoker Second Hand Exposure: No; Hx Alcohol Use: No Hx Substance Use: No Preferred Language: Dominican Communication Ability: Effective Portfolio Management Marketing Required: No Beliefs That Will Affect Care: None marital status: Single Current Living Situation: Family Other Information That Helps Us Care for You: No Feels Safe at Home: Yes Safety Concerns: Feels Safe At This Time Assistive Devices: Glasses and Nebulizer Review of Systems Constitutional: no fever and no chills Eyes: no diplopia Ear, Nose, Mouth, Throat: no ear pain Respiratory: no cough and no dyspnea Cardiovascular: no chest pain Gastrointestinal: no abdominal pain, no nausea and no vomiting Genitourinary: + hematuria; no dysuria, no urinary hesitancy and no flank pain Musculoskeletal: no back pain Integumentary: no rash Neurologic: no localized weakness Physical Exam Constitutional: well developed and well nourished; no acute distress Eyes: no conjunctival abnormality ENMT: Ears: no hearing impairment Neck: trachea midline Respiratory: normal respiratory effort, lungs clear to auscultation Cardiovascular: Rate/Rhythm: regular rate and regular rhythm Gastrointestinal (Abdomen): Percussion/Palpation: abdomen soft; abdomen nontender Musculoskeletal: No calf tenderness Skin: no rashes, warm and dry Neurologic: moves all extremities Psychiatric: A+Ox3, euthymic affect Genitourinary: no CVA tenderness Results & Data ([facility]) Vital Signs (Past 12 Hours) Vital Signs Temp Pulse Pulse Pulse Resp BP BP 11/22/20 03:54 37.1 C 101 H 20 114/68 11/22/20 03:25 37.0 C 101 H 18 109/65 11/22/20 00:27 107 H 11/21/20 23:06 37.9 C H 108 H 18 120/72 11/21/20 21:00 36.9 C 107 H 121 H 24 164/74 H 11/21/20 20:00 94 H 16 126/70 11/21/20 19:01 98 H 23 11/21/20 19:00 97 H 24 116/84 11/21/20 18:04 101 H 18 131/65 11/21/20 18:01 99 H 20 11/21/20 18:00 101 H 17 131/65 Pulse Ox 11/22/20 03:54 95 11/22/20 03:25 94 11/22/20 00:27 11/21/20 23:06 96 11/21/20 21:00 97 11/21/20 20:00 97 11/21/20 19:01 97 11/21/20 19:00 97 11/21/20 18:04 99 11/21/20 18:01 97 11/21/20 18:00 96 PG Care Time/CCT Total # of Minutes Spent Total Time Spent with Patient: Total time spent is greater than 50% in coordination of care (as documented) at patient's floor/unit and/or counseling patient: Coding Level of Care Code 51788 Inpt Consult Level 5 Diagnoses Metastatic adenocarcinoma to prostate C79.82
[2020-11-22 06:55] LABS: Hemoglobin 8.6 g/dL (14.0-18.0); Mean Corpuscular Hgb Conc 34.4 g/dL (32-36); Mean Corpuscular Volume 84.2 fL (80-100); Nucleated RBC # (auto) 0.13 K/uL (0-0); Nucleated RBC % (auto) 5.1 %; RDW Coefficient of Variation 14.3 % (11.5-14.5); RDW Standard Deviation 43.1 fL (36.4-46.3); Red Blood Count 2.97 M/uL (4.7-6.1); White Blood Count 2.56 K/uL (4.8-10.8)
[2020-11-22 06:58] LABS: Mean Platelet Volume 9.7 fL (7.4-10.4); Platelet Count 40 K/uL (130-400)
[2020-11-22 07:44] LABS: BUN Creatinine Ratio 22.3 (10-20); Calcium 8.3 mg/dl (8.5-10.1); Est GFR (African American) 108.5; Est GFR (Non-African American) 93.6; Phosphorus 1.7 mg/dl (2.5-4.9); Potassium 3.9 mmol/L (3.5-5.1)
[2020-11-22] MEDS: POT PHOSPHATE MONOBASIC W/ SOD TAB PO SCH ×4 (08:42→20:36)
[2020-11-22] MEDS: MULTIVITAMIN TAB PO SCH (08:43)
[2020-11-22] MEDS ORDERED: SODIUM PHOSPHATE 3 MMOL/1 ML INFUSION IV STA (12:28)
[2020-11-22] MEDS ORDERED: SODIUM PHOSPHATE 30 MMOL in SODIUM CHLORIDE 0.9% 500 ML IV ONE (13:00)
[2020-11-22] MEDS: BICALUTAMIDE 50 MG TAB PO SCH (16:12)
--- NOTE | 2020-11-22 20:08 | Hospitalist Progress Note ---
Date of Service November 22, 2020 Assessment & Plan (1) Metastatic adenocarcinoma to prostate: established care with Urology today who started him on Casodex. (2) Acute blood loss anemia: H/H has improved somewhat. No need for a blood transfusion at this time. Multifactorial including from gross hematuria recently that has now resolved. (3) Hematuria: Gross hematuria, likely related to lymphoma Currently resolved. (4) Hyperlipidemia: cont statin per home regimen. (5) DVT prophylaxis: Lovenox Full Dispo-uncertain at this time. Ayala Gutierrez [facility] Hospitalist Admission and Anticipated Discharge Date Admission Date: November 21, 2020 Subjective 65 yo M presented with weakness and fatigue and was diagnosed with metaststic prostate cancer he was meeting with Urology on the first time I went to the room Review of Systems Review of Systems: All systems reviewed & are unremarkable except as noted in Subjective Physical Exam Physical Exam: CONSTITUTIONAL: WNWD, vitals as above, generally well- appearing EYES: normal conjunctivae, no scleral icterus ENT: external ear and nose normal, oropharynx clear, MMM RESPIRATORY: clear to auscultation bilaterally, no crackles, rales or wheezes, normal respiratory effort CARDIOVASCULAR: regular rate and rhythm, S1 and 2 heard without murmurs, gallops or rubs, no JVD, no peripheral edema, no carotid bruits GASTROINTESTINAL: soft, nontender, no hepatomegaly, no guarding MUSCULOSKELETAL: strength 5/5 throughout, head is normocephalic and atraumatic, neck supple, normal palpation of chest wall without tenderness SKIN: warm and dry, no rashes NEUROLOGIC: patellar DTRs 2+ bilat. PERRL, EOMI, no facial palsy, no dysarthria. Touch, pain and proprioception normal. CN 2-12 grossly intact, no sensory deficit, normal cognition, normal speech, no tremor PSYCHIATRIC: alert cooperative and oriented to person, place and time. Euthymic mood, makes good eye contact, language grossly intact, recent and remote memory grossly intact. LYMPHATIC: no LAD Results & Data Results & Data ([facility]) Vital Signs (Past 12 Hours) Vital Signs Temp Pulse Pulse Resp BP Pulse Ox 11/22/20 19:22 36.7 C 102 H 20 112/77 95 11/22/20 17:26 37.2 C 11/22/20 16:53 37.5 C 107 H 18 107/64 96 11/22/20 14:19 106 H 11/22/20 11:20 36.8 C 98 H 20 110/68 96 Laboratory Results Short CBC 11/21/20 11/22/20 Range/Units 22:47 06:07 WBC 2.56 L (4.8-10.8) K/uL Hgb 9.7 L 8.6 L (14.0-18.0) g/dL Hct 28.2 L 25.0 L (42-52) % Plt Count 40 L (130-400) K/uL BMP 11/22/20 06:07 Sodium 138 Potassium 3.9 Chloride 111 H Carbon Dioxide 22 BUN 18 Creatinine 0.79 D Glucose 97 Calcium 8.3 L Urine 11/21/20 Range/Units 22:40 Urine Color Yellow Urine Appearance Clear (Clear) Urine pH 5.5 (4.5-7.5) Ur Specific [place] 1.041 H (1.000-1.030) Urine Protein 1+ H (Negative) Urine Glucose (UA) Negative (Negative) Medications Administered Current Inpatient Medications Acetaminophen (Acetaminophen 325 Mg Tab) 650 mg PO Q4H PRN PRN Reason: Pain or Fever Stop: 12/21/20 20:52 Last Admin: 11/22/20 16:56 Dose: 650 mg Documented by: Bicalutamide (Bicalutamide 50 Mg Tab) [facility] Stop: 12/22/20 15:14 Last Admin: 11/22/20 16:12 Dose: 50 mg Documented by: Multivitamins (Multivitamin Tab) 1 tab PO [facility] Stop: 12/22/20 08:59 Last Admin: 11/22/20 08:43 Dose: 1 tab Documented by: Ondansetron HCl (Ondansetron Inj 2 Mg/Ml 2 Ml Vial) 4 mg IV Q6H PRN PRN Reason: Nausea Stop: 12/21/20 20:52 Polyethylene Glycol (Polyethylene (Miralax) 17 Gm Pack) 17 gm PO DAILY PRN PRN Reason: Constipation Stop: 12/21/20 20:52 Potassium Phosphate (Pot Phosphate Monobasic W/ Sod Tab) 1 tab PO QID [facility] Stop: 12/21/20 20:59 Last Admin: 11/22/20 16:52 Dose: 1 tab Documented by: Simvastatin (Simvastatin 10 Mg Tab) 10 mg PO HS [facility] Stop: 12/21/20 20:59 Last Admin: 11/21/20 22:08 Dose: 10 mg Documented by: Tramadol HCl (Tramadol Hcl 50 Mg Tablet) 50 mg PO Q6H PRN PRN Reason: Pain Stop: 12/21/20 20:52
[2020-11-22] MEDS: SIMVASTATIN 10 MG TAB PO SCH (20:36)
[2020-11-22 23:39] LABS: Hematocrit (blood only) 28.7 % (42-52); Hemoglobin 9.7 g/dL (14.0-18.0)
--- NOTE | 2020-11-23 06:19 | Electrocardiogram Report ---
Test Reason : Blood Pressure : / mmHG Vent. Rate : 120 BPM Atrial Rate : 120 BPM P-R Int : 148 ms QRS Dur : 066 ms QT Int : 300 ms P-R-T Axes : 068 083 076 degrees QTc Int : 424 ms Sinus tachycardia Nonspecific ST abnormality Abnormal ECG When compared with ECG of 29-OCT-2020 23:08, No significant change was found Confirmed by Abhijit Yuan ([id number]) on 11/23/2020 6:19:48 AM Referred By: REFERRED SELF Confirmed By:Abhijit Yuan
[2020-11-23 06:38] LABS: Hematocrit (blood only) 24.7 % (42-52); Hemoglobin 8.5 g/dL (14.0-18.0); Mean Corpuscular Hemoglobin 28.7 pg (25-34); Mean Corpuscular Hgb Conc 34.4 g/dL (32-36); Mean Corpuscular Volume 83.4 fL (80-100); Nucleated RBC # (auto) 0.14 K/uL (0-0); Nucleated RBC % (auto) 5.1 %; RDW Coefficient of Variation 14.3 % (11.5-14.5); RDW Standard Deviation 43.2 fL (36.4-46.3); Red Blood Count 2.96 M/uL (4.7-6.1); White Blood Count 2.81 K/uL (4.8-10.8)
[2020-11-23 06:39] LABS: Mean Platelet Volume 9.9 fL (7.4-10.4); Platelet Count 33 K/uL (130-400)
[2020-11-23 07:07] LABS: BUN Creatinine Ratio 18.7 (10-20); Calcium 8.4 mg/dl (8.5-10.1); Creatinine Clr Calc Pharmacy 84.3 ml/min; Est GFR (African American) 103.3; Est GFR (Non-African American) 89.1; Potassium 3.7 mmol/L (3.5-5.1)
[2020-11-23] MEDS: BICALUTAMIDE 50 MG TAB PO SCH (08:34)
[2020-11-23] MEDS: POT PHOSPHATE MONOBASIC W/ SOD TAB PO SCH ×4 (08:34→20:52)
[2020-11-23] MEDS: MULTIVITAMIN TAB PO SCH (08:34)
--- NOTE | 2020-11-23 12:43 | Urology Progress Note ---
Date of Service November 23, 2020 Assessment & Plan (1) Metastatic adenocarcinoma to prostate: (2) Hematuria: 65yo M admitted with worsening generalized weakness in the setting of ongoing hematuria and diagnosed with metastatic prostate cancer. - Plan of care reviewed with Dr. Escobedo. - He remains afebrile. - Labs reviewed, Wbc 2.81 and creatinine stable. - Hemoglobin 8.5 today (previous 9.7). - Voiding spontaneously without difficulty. Gross hematuria has resolved. -- Will continue to monitor. - Patient to have Bone scan today - Continue Casodex - Will need outpatient follow-up arranged with Oncology and Radiation Oncology - Will continue to follow Admission and Anticipated Discharge Date Admission Date: November 21, 2020 Subjective Pt examined at bedside this AM. Awake, resting in bed on arrival. No complaints of pain or discomfort at this time. Voiding spontaneously without difficulty. No reports of hematuria/dysuria. Tolerating PO diet, no nausea or vomiting. No fevers or chills. Ambulating without dizziness. Chart review: Afebrile, Wbc 2.81, Hgb 8.5, Cr 0.89 Review of Systems Constitutional: as per Subjective / HPI Gastrointestinal: as per Subjective / HPI Genitourinary: + as per Subjective / HPI Physical Exam Constitutional: well developed and well nourished; no acute distress Respiratory: no respiratory distress and no labored breathing Cardiovascular: Extremities: no calf tenderness Gastrointestinal (Abdomen): Percussion/Palpation: abdomen soft; abdomen nontender and no guarding Musculoskeletal: Head/Neck/Chest: normocephalic Skin: Warm and dry. Neurologic: moves all extremities and awake Psychiatric: A+Ox3, euthymic affect Results & Data ([facility]) Vital Signs (Past 12 Hours) Vital Signs Temp Pulse Pulse Resp BP Pulse Ox 11/23/20 10:58 36.7 C 110 H 16 108/67 94 11/23/20 07:57 36.7 C 90 18 100/65 91 11/23/20 07:40 37 C 75 24 116/74 92 11/23/20 07:14 105 H 11/23/20 03:52 36.8 C 102 H 20 113/66 94 PG Care Time/CCT Total # of Minutes Spent Total Time Spent with Patient: Total time spent is greater than 50% in coordination of care (as documented) at patient's floor/unit and/or counseling patient: Coding Level of Care Code 54374 Subseq Hosp Care Lvl 2 Diagnoses Metastatic adenocarcinoma to prostate C79.82 Hematuria R31.0 Hematuria type: gross (1) Hematuria Hematuria type: gross Qualified Code(s): R31.0 - Gross hematuria
--- NOTE | 2020-11-23 16:24 | Nuclear Medicine Report ---
NM bone scan whole body CLINICAL HISTORY: Prostate cancer. Bone metastases. COMPARISON STUDY: CT of the chest, abdomen and pelvis November 21, 2020. TECHNIQUE: 25.6 mCi of technetium 99m MDP was injected IV at 12:30 PM on November 23, 2020. Whole-body i maging was performed in the anterior and posterior projections 3 hours following radiotracer injectio n. FINDINGS: Extensive is radiotracer uptake is noted throughout the axial and appendicular skeleton. Th shannon foci correspond to a suspicious lesion shown on prior CT. The findings represent a near super sca n given minimal radiotracer identified within the renal collecting systems and bladder. Mild levoscol iosis of the lumbar spine is incidentally noted. IMPRESSION: Extensive skeletal metastatic disease. ACT 112: Negative or not required by law. Electronically signed by: Handy Lacey M.D. 11/23/2020 4:23 PM
--- NOTE | 2020-11-23 16:57 | Hospitalist Progress Note ---
Date of Service November 23, 2020 Assessment & Plan (1) Metastatic adenocarcinoma to prostate: Appreciate urology input. Hematuria has resolved. Hemoglobin remains stable. Trend CBC daily. Continue Casodex. Plan to obtain bone scan today. (2) Acute blood loss anemia: Hemoglobin is somewhat stable. No further episodes of hematuria. (3) Hematuria: Resolved (4) Hyperlipidemia: cont statin per home regimen. (5) DVT prophylaxis: Lovenox Full Dispo-uncertain at this time. Admission and Anticipated Discharge Date Admission Date: November 21, 2020 Subjective Patient is doing okay this morning. He does not have any major active complaints. Chest pain, shortness of breath, abdominal pain, diarrhea or any dysuria. Reports hematuria is improved. Review of Systems Review of Systems: All systems reviewed & are unremarkable except as noted in HPI & below Physical Exam Physical Exam: General: A&Ox3 HENT: NCAT, MMM, EOMI Eyes: PERRLA Neck: Supple, normal range of motion CVS: normal rate and rhythm Resp: b/l good breath sounds Abdomen: Soft, ND/NT, +BS Extremities: No c/c/e Neuro: face symmetric, absence of any gross focal deficit Skin: warm and dry, no rashes/lesions/errythema MSK: normal ROM, no joint swelling/erythema Results & Data Results & Data ([facility]) Vital Signs (Past 12 Hours) Vital Signs Temp Pulse Pulse Resp BP Pulse Ox 11/23/20 14:49 36.8 C 100 H 16 100/84 90 11/23/20 10:58 36.7 C 110 H 16 108/67 94 11/23/20 09:14 97 11/23/20 07:57 36.7 C 90 18 100/65 91 11/23/20 07:40 37 C 75 24 116/74 92 11/23/20 07:14 105 H
[2020-11-23] MEDS: SIMVASTATIN 10 MG TAB PO SCH (20:52)
[2020-11-24] MEDS: traMADol HCL 50 MG TABLET PO PRN ×3 (03:24→19:42)
[2020-11-24 06:46] LABS: Hemoglobin 8.2 g/dL (14.0-18.0); Mean Corpuscular Hemoglobin 28.9 pg (25-34); Mean Corpuscular Hgb Conc 34.2 g/dL (32-36); Mean Corpuscular Volume 84.5 fL (80-100); Nucleated RBC # (auto) 0.19 K/uL (0-0); Nucleated RBC % (auto) 5.8 %; RDW Coefficient of Variation 14.2 % (11.5-14.5); RDW Standard Deviation 43.4 fL (36.4-46.3); Red Blood Count 2.84 M/uL (4.7-6.1); White Blood Count 3.21 K/uL (4.8-10.8)
[2020-11-24 06:47] LABS: Mean Platelet Volume 9.3 fL (7.4-10.4); Platelet Count 32 K/uL (130-400)
[2020-11-24 07:21] LABS: BUN Creatinine Ratio 25.1 (10-20); Calcium 8.2 mg/dl (8.5-10.1); Creatinine Clr Calc Pharmacy 85.3 ml/min; Est GFR (African American) 103.7; Est GFR (Non-African American) 89.5
[2020-11-24 07:29] LABS: Basophils # (auto) 0.02 K/uL (0-0.2); Basophils % (auto) 0.6 %; Eosinophils # (auto) 0.04 K/uL (0-0.5); Eosinophils % (auto) 1.2 %; Immature Granulocytes # (auto) 0.16 K/uL (0.00-0.02); Lymphocytes # (auto) 1.65 K/uL (1.2-3.4); Lymphocytes % (auto) 51.4 %; Monocytes # (auto) 0.31 K/uL (0.11-0.59); Monocytes % (auto) 9.7 %; Neutrophils # (auto) 1.03 K/uL (1.4-6.5); Neutrophils % (auto) 32.1 %; Polychromasia 1+
[2020-11-24] MEDS: BICALUTAMIDE 50 MG TAB PO SCH (08:14)
[2020-11-24] MEDS: POT PHOSPHATE MONOBASIC W/ SOD TAB PO SCH ×4 (08:15→20:28)
[2020-11-24] MEDS: MULTIVITAMIN TAB PO SCH (08:15)
[2020-11-24] MEDS: ACETAMINOPHEN 325 MG TAB PO PRN (08:15)
--- NOTE | 2020-11-24 14:11 | Discharge Summary ---
Date of Service November 24, 2020 Admission HPI Per Admitting Provider This is a 65yo M with a PMH of recent diagnosis of metastatic prostate cancer and other medical problems as below who presents with worsening generalized weakness in the setting of ongoing hematuria. Was initially seen in [facility] approximately 3 weeks ago for complaint of generalized weakness. Work-up at that time revealed perirectal nodule concerning for neoplasm. Colonoscopy with lower EUS performed and pathology appeared to be most consistent with metastatic prostate adenocarcinoma. Is in the process of establishing with urology and medical oncology at this point with appointments in the next few weeks. Over the past 5 days, has had gross hematuria with clots. This is new for him. Associated with generalized weakness, palpitations with positional change and dyspnea on exertion. He is comfortable at rest right now. Endorses normal appetite but difficulty drinking enough fluids. Unintentional weight loss of 30 pounds in the last month. Is drinking boost shakes 3 times daily. Only pain is from rectal area that has been present for past month. Has been taking ibuprofen BID. Denies any fever, chills, lightheadedness, headache, cough, chest pain, wheezing, nausea, vomiting, abdominal pain, dysuria, diarrhea or constipation. Did have a second dose of Moderna Covid vaccine yesterday. Admission Exam Per Admitting Provider General Appearance: WD/WN, vitals as above, NAD, sitting up in bed, pleasant, conversing easily Head: normocephalic, atraumatic Eyes: normal inspection, PERRL, conjunctivae normal, anicteric sclerae ENT: external ear and nose normal, oropharynx normal Neck: normal visual inspection, trachea midline, no thyromegaly Respiratory: normal respiratory effort, lungs clear to auscultation, no wheeze, rales, rhonchi. No accessory muscle use Cardiovascular: tachycardic rate, rhythm, no murmur appreciated, normal peripheral pulses, no BLE edema. Vessels: no JVD Chest: normal inspection of chest Abdomen/GI: normal bowel sounds, soft, nontender, no hepatosplenomegaly Extremities/Musculoskeletal: no cyanosis or clubbing, extremities motor strength 5/5 Neurologic: PERRL, EOMI, accommodation nl, no face palsy, no dysarthria, CN's II-XI intact bilaterally and moves all extremities Psychiatric: A+Ox3, euthymic affect Skin: no rashes, normal color, warm/dry Principal Diagnosis Metastatic adenocarcinoma to prostate: Discharge Exam General: A&Ox3 HENT: NCAT, MMM, EOMI Eyes: PERRLA Neck: Supple, normal range of motion CVS: normal rate and rhythm Resp: b/l good breath sounds Abdomen: Soft, ND/NT, +BS Extremities: No c/c/e Neuro: face symmetric, absence of any gross focal deficit Skin: warm and dry, no rashes/lesions/errythema MSK: normal ROM, no joint swelling/erythema Discharge Data Allergies Allergy/AdvReac Type Severity Reaction Status Date / Time No Known Allergies Allergy Mild Verified 11/21/20 14:30 Consultations 11/21/20 17:56 ED Decision to Admit Stat 11/21/20 20:53 Consult Urology Routine Ordered Studies 11/21/20 14:12 CT abd pelvis IV con only Stat CT angio chest PE protocol Stat Hospital Course (1) Metastatic adenocarcinoma to prostate: Patient presented with generalized weakness. Neurology was consulted on admission. Hematuria resolved prior to discharge. Patient was started on Casodex. Also had bone scan which revealed metastatic disease. Hemoglobin remained stable. On the day of discharge patient was doing okay. Hemodynamically he was doing fine. He was discharged in stable condition. Patient will also need repeat CBC to monitor pancytopenia. (2) Acute blood loss anemia: Hemoglobin is somewhat stable. No further episodes of hematuria. (3) Hematuria: Resolved (4) Hyperlipidemia: cont statin per home regimen. (5) DVT prophylaxis: Lovenox Full Dispo-uncertain at this time. Discharge Plan Discharge Items Patient Disposition: Home - Self-Care Reason For Visit: ACUTE BLOOD LOSS ANEMIA IN SETTING OF MET PRO CA Discharge Diagnosis: Metastatic adenocarcinoma to prostate: Activity: Resume your previous activity Non-emergency contact: Primary Care Provider Call non-emergency contact if: your symptoms worsen and your pain is not controlled Follow-up/Referrals: Johan Lam MD [Surgeon] - (Date & Time 12/02/2020 12:15 PM Provider Johan Lam MD Department Hematology/Oncology [facility] ) Pramod Whipple DO [Primary Care Provider] - (Date & Time 11/30/2020 11:20 AM Provider Pramod Whipple DO Department Family [facility] ) Diet: Heart Healthy Addtl Attending Provider Instructions: Follow-up with your primary care physician within 1 week. Follow-up with urology and oncology as an outpatient. Appointments have been requested. Pending Studies at Discharge: No Stand-Alone Forms: [facility], Smoking Cessation Medications and DC Order Prescriptions: New bicalutamide 50 mg Tablet 50 mg PO QAM Qty: 30 RF: 0 Continued multivitamin Tablet 1 tab PO QAM RF: 0 simvastatin 10 mg tablet 10 mg PO HS RF: 0 naproxen sodium [Aleve] 220 mg Capsule 440 mg PO BID PRN (Reason: Pain) RF: 0 Admission Data Admit Date/Time: 11/21/20 19:23 Attending Provider: Xavier Flores Admit Provider: Manoj Carvalho Primary Care Provider: Pramod Whipple Other Providers: Manoj Carvalho ; Jasvir Escobedo
--- NOTE | 2020-11-24 15:25 | Urology Progress Note ---
Date of Service November 24, 2020 Assessment & Plan (1) Metastatic adenocarcinoma to prostate: Metastatic prostate cancer The patient recently underwent colonoscopy with biopsy which revealed metastatic adenocarcinoma of the prostate. Pathology is in our system. His PSA is 55 and his bone scan appears to show widespread metastatic disease involving bone. He has been started on bicalutamide during this hospitalization. We will arrange for outpatient injection of long-acting antiandrogen therapy. It is probably best to continue bicalutamide but I am hoping to start him on Firmagon so bicalutamide will not be absolutely necessary. He also has an upcoming appointment with Dr. Johan Lam from oncology. I have discussed options with the patient and encouraged him to consider the option of combined hormonal therapy and chemotherapy as he has an excellent performance status and is young and healthy. I have discussed that this can confer an overall survival benefit. From a standpoint there is no reason he needs to continue his hospitalization, he can complete the rest of his evaluation and treatment as an outpatient. Admission and Anticipated Discharge Date Admission Date: November 21, 2020 Subjective Patient denies any major subjective complaints He has some mild right leg pain but no severe back pain or other musculoskeletal issues Seems to be urinating adequately Physical Exam Constitutional: well developed and well nourished Respiratory: no respiratory distress Cardiovascular: Extremities: no pedal edema Gastrointestinal (Abdomen): Inspection/Auscultation: abdomen normal to inspection Results & Data ([facility]) Vital Signs (Past 12 Hours) Vital Signs Temp Pulse Pulse Pulse Resp BP Pulse Ox 11/24/20 15:15 36.5 C 101 H 17 109/67 98 11/24/20 14:54 100 H 11/24/20 14:06 36.5 C 104 H 121 H 18 101/62 95 11/24/20 11:14 36.5 C 104 H 18 101/62 95 11/24/20 07:09 89 11/24/20 07:06 36.9 C 93 H 18 102/64 94 PG Care Time/CCT Total # of Minutes Spent Total Time Spent with Patient: Total time spent is greater than 50% in coordination of care (as documented) at patient's floor/unit and/or counseling patient: Coding Level of Care Code 92139 Subseq Hosp Care Lvl 3 Diagnoses Metastatic adenocarcinoma to prostate C79.82
--- NOTE | 2020-11-24 16:46 | Hospitalist Progress Note ---
Date of Service November 24, 2020 Assessment & Plan (1) Metastatic adenocarcinoma to prostate: Patient presented with generalized weakness. Urology was consulted on admission. Hematuria resolved prior to discharge. Patient was started on Casodex. Also had bone scan which revealed metastatic disease. Hemoglobin remained stable. Patient requested to stay for one more day due to weakness. (2) Acute blood loss anemia: Hemoglobin is stable. No further episodes of hematuria. Thrombocytopenia Platelets have been trending down. No evidence of bleeding. No evidence of sepsis. Will order peripheral smear. (3) Hematuria: Resolved (4) Hyperlipidemia: cont statin per home regimen. (5) DVT prophylaxis: Lovenox Full Dispo-uncertain at this time. Admission and Anticipated Discharge Date Admission Date: November 21, 2020 Subjective Patient feeling OK. Does report discomfort at the RUQ. Reports exacerbation with movement. Review of Systems Review of Systems: All systems reviewed & are unremarkable except as noted in HPI & below Physical Exam Physical Exam: General: A&Ox3 HENT: NCAT, MMM, EOMI Eyes: PERRLA Neck: Supple, normal range of motion CVS: normal rate and rhythm Resp: b/l good breath sounds Abdomen: Soft, ND/NT, +BS Extremities: No c/c/e Neuro: face symmetric, absence of any gross focal deficit Skin: warm and dry, no rashes/lesions/errythema MSK: normal ROM, no joint swelling/erythema Results & Data Results & Data ([facility]) Vital Signs (Past 12 Hours) Vital Signs Temp Pulse Pulse Pulse Resp BP Pulse Ox 11/24/20 15:15 36.5 C 101 H 17 109/67 98 11/24/20 14:54 100 H 11/24/20 14:06 36.5 C 104 H 121 H 18 101/62 95 11/24/20 11:14 36.5 C 104 H 18 101/62 95 11/24/20 07:09 89 11/24/20 07:06 36.9 C 93 H 18 102/64 94
[2020-11-24] MEDS: SIMVASTATIN 10 MG TAB PO SCH (20:28)
[2020-11-25] MEDS: MULTIVITAMIN TAB PO SCH (08:07)
[2020-11-25] MEDS: POT PHOSPHATE MONOBASIC W/ SOD TAB PO SCH ×4 (08:07→21:31)
[2020-11-25] MEDS: BICALUTAMIDE 50 MG TAB PO SCH (08:07)
[2020-11-25] MEDS ORDERED: oxyCODONE HCL IR 5 MG TAB (IMMEDIATE RELEASE) PO PRN ×2 (13:13→13:14)
--- NOTE | 2020-11-25 13:27 | Hospitalist Progress Note ---
Date of Service November 25, 2020 Assessment & Plan (1) Metastatic adenocarcinoma to prostate: Patient presented with generalized weakness. Dx with prostate Ca with wide spread mets to lungs/abdomen and bones Urology was consulted on admission. Patient was started on Casodex. bone scan which revealed metastatic disease. Urology follow up in clinic after discharge will be followed with Oncology in clinic for consideration of chemo Pain on Right leg/ambulatory dysfunction : possible due to bone mets script for walker given was prescribed tramadol as needed on admission , has not been affective started on PRN Oxycodone pt will be followed with Urology and oncology for definitive tx observe overnight (2) Acute blood loss anemia: due to hematuria -resolved Hemoglobin is stable. repeat CBC out patient Thrombocytopenia pancytopenia possible due to metastatic ca No evidence of bleeding. avoid antiplatelet , NSAID's pt is scheduled to follow up with Oncology (3) Hematuria: due to metastatic prostate ca Resolved (4) Hyperlipidemia: cont statin per home regimen. (5) DVT prophylaxis: d/c Lovenox -risk of hematuria scd and teds , ambulate Full Disposition : possible dc home in AM Admission and Anticipated Discharge Date Admission Date: November 21, 2020 Subjective Follow up visit for metastatic prostate ca with widespread bone mets : pt complains of intermittent pain on rt lower quadrant pain radiation to right groin pain on rt thigh while standing , bearing wt , no pain at rest started to experience rt sided neck pain since yesterday no fever or chills no cough or SOB no hematuria or urinary problem Review of Systems Review of Systems: All systems reviewed & are unremarkable except as noted in Subjective Physical Exam Constitutional: WD/WN, vitals as above Eyes: PERRL, conjunctivae normal, anicteric sclerae ENMT: external ear and nose normal, oropharynx normal Neck: trachea midline, no thyromegaly Respiratory: normal respiratory effort, lungs clear to auscultation Cardiovascular: RRR, no murmur, no edema Gastrointestinal (Abdomen): Percussion/Palpation: + abdomen tender (tenderness on rt lower quadrant , no guarding ) and abdomen soft; no guarding Musculoskeletal: Extremities: + lower leg abnormality (pain on rt thigh worse with movement and wt bearing ) Right Skin: no rashes, warm and dry Neurologic: PERRL, EOMI, accommodation nl, no face palsy, no dysarthria Psychiatric: A+Ox3, euthymic affect Results & Data Results & Data ([facility]) Vital Signs (Past 12 Hours) Vital Signs Temp Pulse Pulse Resp BP Pulse Ox 11/25/20 07:25 37.0 C 98 H 20 101/61 94 11/25/20 07:01 93 H 11/25/20 03:00 37.3 C 93 H 18 96/58 L 95
[2020-11-25] MEDS: SIMVASTATIN 10 MG TAB PO SCH (21:30)
[2020-11-25] MEDS: DOCUSATE SODIUM 100 MG CAP PO SCH (21:31)
[2020-11-26 07:02] LABS: Hematocrit (blood only) 23.6 % (42-52); Hemoglobin 8.2 g/dL (14.0-18.0); Mean Corpuscular Hemoglobin 29.5 pg (25-34); Mean Corpuscular Hgb Conc 34.7 g/dL (32-36); Mean Corpuscular Volume 84.9 fL (80-100); Nucleated RBC # (auto) 0.34 K/uL (0-0); Nucleated RBC % (auto) 9.3 %; RDW Coefficient of Variation 14.5 % (11.5-14.5); RDW Standard Deviation 44.1 fL (36.4-46.3); Red Blood Count 2.78 M/uL (4.7-6.1); White Blood Count 3.63 K/uL (4.8-10.8)
[2020-11-26 07:27] LABS: Mean Platelet Volume 9.2 fL (7.4-10.4); Platelet Count 38 K/uL (130-400)
[2020-11-26] MEDS: POT PHOSPHATE MONOBASIC W/ SOD TAB PO SCH (08:47)
[2020-11-26] MEDS: MULTIVITAMIN TAB PO SCH (08:47)
[2020-11-26] MEDS: BICALUTAMIDE 50 MG TAB PO SCH (08:47)
[2020-11-26] MEDS: DOCUSATE SODIUM 100 MG CAP PO SCH (08:47)
--- NOTE | 2020-11-26 11:38 | Discharge Summary ---
Date of Service November 26, 2020 Admission HPI Per Admitting Provider This is a 65yo M with a PMH of recent diagnosis of metastatic prostate cancer and other medical problems as below who presents with worsening generalized weakness in the setting of ongoing hematuria. Was initially seen in [facility] ER approximately 3 weeks ago for complaint of generalized weakness. Work-up at that time revealed perirectal nodule concerning for neoplasm. Colonoscopy with lower EUS performed and pathology appeared to be most consistent with metastatic prostate adenocarcinoma. Is in the process of establishing with urology and medical oncology at this point with appointments in the next few weeks. Over the past 5 days, has had gross hematuria with clots. This is new for him. Associated with generalized weakness, palpitations with positional change and dyspnea on exertion. He is comfortable at rest right now. Endorses normal appetite but difficulty drinking enough fluids. Unintentional weight loss of 30 pounds in the last month. Is drinking boost shakes 3 times daily. Only pain is from rectal area that has been present for past month. Has been taking ibuprofen BID. Denies any fever, chills, lightheadedness, headache, cough, chest pain, wheezing, nausea, vomiting, abdominal pain, dysuria, diarrhea or constipation. Did have a second dose of Moderna Covid vaccine yesterday. Principal Diagnosis Metastatic adenocarcinoma to prostate: Discharge Exam Constitutional WD/WN, vitals as above well developed and well nourished; no acute distress Eyes PERRL, conjunctivae normal, anicteric sclerae no conjunctival abnormality ENMT external ear and nose normal, oropharynx normal Ears: no hearing impairment Neck trachea midline, no thyromegaly trachea midline Respiratory normal respiratory effort, lungs clear to auscultation no respiratory distress and no labored breathing Cardiovascular RRR, no murmur, no edema Rate/Rhythm: regular rate and regular rhythm Extremities: no calf tenderness and no pedal edema Gastrointestinal (Abdomen) Inspection/Auscultation: abdomen normal to inspection Percussion/Palpation: + abdomen tender (tenderness on rt lower quadrant , no guarding ) and abdomen soft; no guarding Musculoskeletal Head/Neck/Chest: normocephalic Extremities: + lower leg abnormality (pain on rt thigh worse with movement and wt bearing ) Skin no rashes, warm and dry Neurologic PERRL, EOMI, accommodation nl, no face palsy, no dysarthria moves all extremities and awake Psychiatric A+Ox3, euthymic affect Genitourinary no CVA tenderness Discharge Data Allergies Allergy/AdvReac Type Severity Reaction Status Date / Time No Known Allergies Allergy Mild Verified 11/21/20 14:30 Consultations 11/21/20 17:56 ED Decision to Admit Stat 11/21/20 20:53 Consult Urology Routine Ordered Studies 11/21/20 14:12 CT abd pelvis IV con only Stat CT angio chest PE protocol Stat Hospital Course (1) Metastatic adenocarcinoma to prostate: Patient presented with generalized weakness. Dx with prostate Ca with wide spread mets to lungs/abdomen and bones Urology was consulted on admission. Patient was started on Casodex. Had nuclear bone scan which revealed metastatic disease. Urology follow up in clinic after discharge will be followed with Oncology in clinic for consideration of chemo Pain on Right leg/ambulatory dysfunction : Symptom has improved today, able to walk with walker possible due to bone mets script for walker given Prescription for as needed oxycodone sent to pharmacy pt will be followed with Urology and oncology for definitive tx Stable to be discharged home today (2) Acute blood loss anemia: due to hematuria -resolved Hemoglobin has been stable at 8.2 Will be followed with oncology repeat CBC out patient Thrombocytopenia pancytopenia possible due to metastatic ca No evidence of bleeding. avoid antiplatelet , NSAID's pt is scheduled to follow up with Oncology (3) Hematuria: due to metastatic prostate ca Resolved (4) Hyperlipidemia: cont statin per home regimen. (5) DVT prophylaxis: scd and teds , ambulate Full Disposition : Stable to be discharged home today Total Time Total Time Spent Total Time Spent (In Minutes): Approximate 38 minutes Total Time Includes: Examination of the Patient, Discharge Planning and Medication Reconciliation Discharge Plan Discharge Items Patient Disposition: Home - Self-Care Reason For Visit: ACUTE BLOOD LOSS ANEMIA IN SETTING OF MET PRO CA Discharge Diagnosis: Metastatic adenocarcinoma to prostate: Activity: Resume your previous activity Non-emergency contact: Primary Care Provider Call non-emergency contact if: your symptoms worsen and your pain is not controlled Follow-up/Referrals: Jasvir Escobedo DO [Physician] - (Urology follow up in 1-2 weeks, please all office to schedule appointment ) Johan Lam MD [Surgeon] - 12/02/20 12:15 pm (Date & Time 12/02/2020 12:15 PM Provider Johan Lam MD Department Hematology/Oncology [facility] ) Pramod Whipple DO [Primary Care Provider] - 11/30/20 11:20 am (Date & Time 11/30/2020 11:20 AM Provider Pramod Whipple DO Department Family Practice [facility] ) Diet: Heart Healthy Addtl Attending Provider Instructions: Follow-up with your primary care physician within 1 week-appointment scheduled Blood work : complete blood count with next physician visit Follow-up with urology and oncology as an outpatient. Appointments scheduled with Oncology Dr Johan Lam Please Call Urology Dr Robles to schedule appointment Addtl Cut Off Saw Operator Provider Instructions: Do not take group of medications belonging to NSAIDs group -can cause bleeding as your platelets counts are low : List Of these medications includes but not limited to: Aspirin Diclofenac Ibuprofen, Motrin, Advil Toradol,ketorolac Naproxen, Aleve, Naprosyn You can take Tylenol as needed for pain or fever When buying [id number] pain medications please consult with pharmacy if you are not sure regarding ingredients, as a lot of the pain medications have combination of NSAIDs( Aspirin ) and Tylenol. Pending Studies at Discharge: No Stand-Alone Forms: My [facility] muzu tv, Smoking Cessation Medications and DC Order Prescriptions: New bicalutamide 50 mg Tablet 50 mg PO QAM Qty: 30 RF: 0 oxycodone 5 mg Tablet 5 mg PO Q6 PRN (Reason: PAIN) Qty: 30 RF: 0 Continued multivitamin Tablet 1 tab PO QAM RF: 0 simvastatin 10 mg tablet 10 mg PO HS RF: 0 Discontinued naproxen sodium [Aleve] 220 mg Capsule 440 mg PO BID PRN (Reason: Pain) RF: 0 Discharge Orders: Discharge Order (Routine); Ordered 11/26/20 Ordered By: Shira Garcia Admission Data Admit Date/Time: 11/21/20 19:23 Attending Provider: Shira Garcia Admit Provider: Manoj Carvalho Primary Care Provider: Pramod Whipple Other Providers: Xavier Flores ; Manoj Carvalho ; Jasvir Escobedo Other Interventions: Discharge Summary Assessment (RN) Last Done: 11/26/20 11:22
== END 2020-11-26 13:18 | disposition home or self-care (01) | DRG 722 ==
LOC: ED 13:34 → SUATTDRO 19:23 → 2N 19:23

== ENCOUNTER 2022-01-18 03:31 | Inpatient (IN) ==
[2022-01-18] MEDS ORDERED: HYDROmorphone INJ 0.5 MG/0.5 ML SYR IV PRN (03:59)
[2022-01-18 04:31] LABS: Hematocrit (blood only) 38.5 % (42-52); Hemoglobin 12.8 g/dL (14.0-18.0); Mean Corpuscular Hemoglobin 29.2 pg (25-34); Mean Corpuscular Hgb Conc 33.2 g/dL (32-36); Mean Corpuscular Volume 87.7 fL (80-100); Mean Platelet Volume 8.8 fL (7.4-10.4); Platelet Count 205 K/uL (130-400); RDW Coefficient of Variation 13.8 % (11.5-14.5); RDW Standard Deviation 44.7 fL (36.4-46.3); Red Blood Count 4.39 M/uL (4.7-6.1); White Blood Count 6.59 K/uL (4.8-10.8)
[2022-01-18 04:53] LABS: ALC (manual) 1.83 K/uL (1.2-3.4); ANC (manual) 4.19 K/uL (1.4-6.5); BUN Creatinine Ratio 21.6 (10-20); Calcium 8.9 mg/dl (8.5-10.1); Eosinophils # (manual) 0.11 K/uL (0-0.5); Eosinophils % (manual) 1.7 %; Est GFR (African American) 110.6 ml/min; Est GFR (Non-African American) 95.4 ml/min; Lymphocytes # (manual) 1.83 K/uL (1.2-3.4); Lymphocytes % (manual) 27.8 %; Monocytes # (manual) 0.34 K/uL (0.11-0.59); Monocytes % (manual) 5.2 %; Myelocytes # (manual) 0.11 K/uL (0-0); Myelocytes % (manual) 1.7 %; Neutrophils # (manual) 4.19 K/uL (1.4-6.5); Neutrophils % (manual) 63.6 %; Potassium 4.1 mmol/L (3.5-5.1); RBC Morphology Unremarkable
[2022-01-18 05:00] LABS: Albumin Level 3.6 gm/dl (3.4-5.0); Bilirubin,Total 0.4 mg/dl (0.2-1.0); Globulin 3.6 gm/dl (2.5-4.0); Phosphorus 1.1 mg/dl (2.5-4.9); Total Protein 7.2 gm/dl (6.0-8.3)
[2022-01-18] MEDS ORDERED: SODIUM PHOSPHATE 3 MMOL/1 ML 5 ML VIAL IV STA (05:04)
[2022-01-18] MEDS ORDERED: SODIUM PHOSPHATE 30 MMOL in SODIUM CHLORIDE 0.9% 500 ML IV STA (05:06)
--- NOTE | 2022-01-18 06:00 | Emergency Department Note ---
ED Provider Note CHIEF COMPLAINT: Left hip pain, prostate cancer HISTORY OF PRESENT ILLNESS: This 66-year-old male patient presents to the emergency department complaints of left hip pain that is chronic in nature but over the last 24 hours has become intolerable. The patient states he does wear a fentanyl patch, 25 mcg/h with as needed 10 mg Oxy IR. The patient has not fallen and did not feel a pop or crack in the hip. He states he laid down to go to bed and cannot get comfortable despite taking his pain medication. The patient does have some limited mobility with the use of his walker. Does admit to some numbness at the distal lower extremities. He denies any loss of bowel or bladder function. Patient has not had any recent fevers, chills. REVIEW OF SYSTEMS: A review of systems was performed with positives and pertinent negatives listed in the history of present illness. 10 systems were reviewed and are otherwise negative. ALLERGIES: see below MEDICATIONS: see below PMH: see below SOCIAL HISTORY: see below DDx: Fracture, subluxation, dislocation, contusion, mets bone pain, neurovascular, compartment syndrome, rhabdomyolysis, as well as other pathologies. PHYSICAL EXAM: Vital signs reviewed. General: Chronically ill-appearing 66-year-old male, in no significant distress. HEENT: No scleral icterus, PERRLA, neck supple. Cardiovascular: Regular rate and rhythm, no extra sounds. Pulmonary: Clear to auscultation bilaterally, normal work of breathing. Abdomen: Soft, nontender, nondistended, positive bowel sounds. Musculoskeletal: Atraumatic, no peripheral edema. Positive pain to palpation of the left hip and groin. No crepitus or instability appreciated on exam. Neurologic: Patient awake alert and oriented x 3 Skin: Warm, dry, no rash EMERGENCY DEPARTMENT COURSE/MDM: This patient was evaluated and appeared to be in discomfort but no distress. IV access was obtained and laboratory work was drawn. The patient is noted to have a phosphorus of 1.1 which has been a reoccurring issue for him despite oral repletion. X-ray of the left hip reveals bony metastasis but no fracture. This will be over read by radiology shortly. Patient had been given 0.25 mg of IV Dilaudid on a as needed basis. Case was di scussed with the hospitalist service who will evaluate the patient for admission and further management. He is aware of the plan and agrees. MONITORING: An order for cardiac monitoring was placed and the patient is noted to be in a sinus tachycardia at 107 beats per minute. RADIOLOGY: Left hip x-ray to my interpretation reveals bony metastasis visualized throughout, no acute fracture or dislocation. EKG: Normal sinus rhythm at 90 bpm. No PVC, no PAC. QTc is 444. Normal axis. Significant change when compared to November 21, 2020 DISPOSITION: Patient Past Med/Surg History Medical History Chronic pain due to malignant neoplastic disease Degenerative disc disease Hearing loss Hyperlipidemia Lumbar spinal stenosis Mass of colon with enlarged lymph nodes Metastatic disease Prostate cancer Renal colic on right side Tinnitus Surgical History History of appendectomy History of colonoscopy History of tonsillectomy Family History Other Cancer Colorectal cancer Heart disease Lung disease Social History Smoking Status: Never smoker Second Hand Exposure: No; Hx Alcohol Use: No Hx Substance Use: No Preferred Language: Peruvian Communication Ability: Effective High School Guidance Counselor Required: No Beliefs That Will Affect Care: None marital status: Single Current Living Situation: Family Feels Safe at Home: Yes Assistive Devices: None Allergies Allergies Allergy/AdvReac Type Severity Reaction Status Date / Time No Known Allergies Allergy Mild Verified 01/06/22 10:15 Home Meds Home Medications Medication Instructions Recorded Confirmed acetaminophen 500 mg tablet 500 mg PO Q6H PRN 01/06/22 01/06/22 (Tylenol Extra Strength) alprazolam 0.5 mg tablet (Xanax) 0.5 mg PO HS tab 01/06/22 01/06/22 apalutamide 60 mg tablet 240 mg PO DAILY 01/06/22 01/06/22 calcium carbonate 600 mg-vitamin 2 tab PO QID tab 01/06/22 01/06/22 D3 10 mcg (400 unit) chewable tablet diclofenac sodium 1 % topical gel 2 g TOPICAL QID 01/06/22 01/06/22 oxycodone 15 mg tablet 15 mg PO Q6H PRN 01/06/22 01/06/22 potassium phosphate, monobasic 500 1,000 mg PO TID 01/06/22 01/06/22 mg soluble tablet pravastatin 20 mg tablet 20 mg PO DAILY 01/06/22 01/06/22 Previous Rx's Medication Instructions Recorded fentanyl 25 mcg/hr transdermal 1 patch TRANSDERMAL Q72H #10 ea 01/06/22 patch naloxone 4 mg/actuation nasal spray 1 spray INTRANASAL Q3M PRN #2 ea 01/06/22 Results & Data (ED) Vital Signs Vital Signs - 24 hr 01/18/22 03:46 01/18/22 03:52 Temperature 36.4 C 36.4 C L Temperature Source Oral Oral Pulse Rate 107 H Pulse Rate [Apical] 107 H Pulse Rhythm Regular Pulse Rhythm [Apical] Regular Pulse Strength Normal Pulse Strength [Apical] Normal Respiratory Rate 17 17 Respiratory Effort / Characteristics Non-Labored Spontaneous Non-Labored Spontaneous Respiratory Depth Normal Normal Respiratory Pattern Regular Regular Blood Pressure 130/94 Blood Pressure [Right Arm] 130/94 Blood Pressure Mean 106 Blood Pressure Mean [Right Arm] 106 Blood Pressure Position Semi-fowlers Blood Pressure Position [Right Arm] Semi-fowlers Pulse Oximetry 99 99 Oxygen Delivery Method Room Air Room Air Sepsis Recent Fever Within 48 Hours No Sepsis New/Unexplained Change in Mental Status No Sepsis Action Taken by Nursing No Action Required Home Medications Current Medication List: was personally reviewed by me Laboratory Data Attestation: I reviewed the patient's lab results. Result diagrams: 01/18/22 04:18 01/18/22 04:18 Lab Results 01/18/22 01/18/22 Range/Units 04:18 04:18 WBC 6.59 (4.8-10.8) K/uL RBC 4.39 L (4.7-6.1) M/uL Hgb 12.8 L (14.0-18.0) g/dL Hct 38.5 L (42-52) % MCV 87.7 (80-100) fL MCH 29.2 (25-34) pg MCHC 33.2 (32-36) g/dL RDW Std Deviation 44.7 (36.4-46.3) fL RDW Coeff of Rosetta 13.8 (11.5-14.5) % Plt Count 205 (130-400) K/uL MPV 8.8 (7.4-10.4) fL Neutrophils % (Manual) 63.6 % Lymphocytes % (Manual) 27.8 % Monocytes % (Manual) 5.2 % Eosinophils % (Manual) 1.7 % Myelocytes % (Man) 1.7 % Neutrophils # (Manual) 4.19 (1.4-6.5) K/uL Total Absolute Neuts 4.19 (1.4-6.5) K/uL Lymphocytes # (Manual) 1.83 (1.2-3.4) K/uL Total Abs Lymphocytes 1.83 (1.2-3.4) K/uL Monocytes # (Manual) 0.34 (0.11-0.59) K/uL Eosinophils # (Manual) 0.11 (0-0.5) K/uL Myelocytes # (Manual) 0.11 H (0-0) K/uL RBC Morphology Unremarkable Sodium 134 L (136-145) mmol/L Potassium 4.1 (3.5-5.1) mmol/L Chloride 101 (98-107) mmol/L Carbon Dioxide 25 (21-32) mmol/L Anion Gap 8 (3-11) BUN 16 (6-23) mg/dl Creatinine 0.74 (0.6-1.4) mg/dl Est Cr Clr Drug Dosing 100.0 ml/min Est GFR ( Amer) 110.6 ml/min Est GFR (Non-Af Amer) 95.4 ml/min BUN/Creatinine Ratio 21.6 H (10-20) Glucose 110 H (70-99(Fasting)) mg/dl Calcium 8.9 (8.5-10.1) mg/dl Phosphorus 1.1 L* (2.5-4.9) mg/dl Total Bilirubin 0.4 (0.2-1.0) mg/dl AST 19 (13-39) U/L ALT 8 (7-52) U/L Alkaline Phosphatase 213 H (34-104) U/L Total Protein 7.2 (6.0-8.3) gm/dl Albumin 3.6 (3.4-5.0) gm/dl Globulin 3.6 (2.5-4.0) gm/dl Albumin/Globulin Ratio 1.0 (0.9-2) Administered Medications Hydromorphone HCl (Hydromorphone Inj 0.5 Mg/0.5 Ml Syr) 0.25 mg IV Q20M PRN PRN Reason: Moderate Pain (Rating 3,4,5,6) Stop: 02/01/22 03:58 Last Admin: 01/18/22 04:25 Dose: 0.25 mg Documented by: [id number] Sodium Phosphate 30 mmol/ (Sodium Chloride) 510 mls @ 100 mls/hr IV NOW STA Stop: 01/18/22 10:11 Last Admin: 01/18/22 05:20 Dose: 100 mls/hr Documented by: [id number] Blood Pressure Blood Pressure Findings: Normal blood pressure Blood Pressure Disposition: did not require urgent referral Discharge Plan Visit Data Chief Complaint: Hip Pain Stated Complaint: PAIN -s/p RECENT CANCER TREATMENT ED Provider: Bianca Gardner Forms Stand Alone Forms: [facility] [employer] Prescriptions Prescriptions: No Action alprazolam [Xanax] 0.5 mg tablet 0.5 mg PO HS RF: 0 acetaminophen [Tylenol Extra Strength] 500 mg tablet 500 mg PO Q6H PRNRF: 0 diclofenac sodium 1 % gel 2 g topical QID RF: 0 apalutamide 60 mg tablet 240 mg PO DAILY RF: 0 potassium phosphate, monobasic 500 mg tablet,soluble 1,000 mg PO TID RF: 0 calcium carbonate-vitamin D3 600 mg-10 mcg (400 unit) tablet,chewable 2 tab PO QID RF: 0 oxycodone 15 mg tablet 15 mg PO Q6H PRNRF: 0 pravastatin 20 mg tablet 20 mg PO DAILY RF: 0 naloxone 4 mg/actuation spray,non-aerosol 1 spray intranasal Q3M PRN (Reason: opioid overdose) Qty: 2 RF: 0 fentanyl 25 mcg/hr patch 72 hour 1 patch transdermal Q72H Qty: 10 RF: 0 Referrals Referrals: Pramod Whipple DO [Primary Care Provider] -
[2022-01-18 06:38] LABS: Appearance Urine Clear (Clear); Bacteria Urine Automated Negative (Negative); Bilirubin Urine Negative (Negative); Blood Urine Negative (Negative); Cast Urine Automated 0 /lpf (0-5); Color Urine Yellow; Epithelial Cell Urine Auto 0-5 /lpf (0-5); Glucose Urine UA Negative (Negative); Ketones Urine Negative (Negative); Leukocyte Esterase Urine Negative (Negative); Nitrite Urine Negative (Negative); Protein Urine Trace (Negative); RBC Urine Automated 0-4 /hpf (0-4); Specific Gravity Urine 1.023 (1.000-1.030); Urobilinogen Urine Negative (Negative); pH Urine 6.5 (4.5-7.5)
--- NOTE | 2022-01-18 06:55 | History & Physical Report ---
Date of Service January 18, 2022 Assessment & Plan (1) Intractable pain: Plan: Intractable left hip pain hx cancer pain on fentanyl patch Likely progression of metastatic prostate cancer Hypophosphatemia hyperlipidemia, chronic anemia (baseline hemoglobin 12-13). hyperlipidemia on statin Rx Hyperglycemia rule out DM chronic anemia, hemoglobin at baseline Narcotic induced constipation GMF Analgesia CT left hip Pain management consult Replace phosphorus Check hemoglobin A1c Bowel regimen, naltrexone if no BM by tomorrow. DVT prophylaxis per Lovenox subcu Full code Text document was generated using [employer] voice recognition software. It may contain grammatical or spelling errors. Kindly contact undersigned for clarification of any documentation item in question. History of Present Illness Chief Complaint: Intractable left hip pain Primary Care Provider: Pramod Whipple DO History obtained from patient and records. Medical history significant for metastatic prostate cancer, chronic cancer pain on Fentanyl patch, hyperlipidemia, chronic anemia (baseline hemoglobin 12-13). Last confinement November 2020 for generalized weakness. Patient found to have prostate CA with widespread mets to the lung abdomen and bones. Patient discharged on Casodex. Patient later on switched to apalutamide. ADT treatment with Firmagon later given with Xgeva given every month. Patient referred to [facility] 2 weeks ago for cancer pain. Patient suffering from pelvic pain more on the left hip worse with motion. Outpatient CT abdomen pelvis from last month showed increased rectal involvement of prostate tumor. Right iliac lymphadenopathy. Small residual left iliac lymph nodes. Progressive diffuse osseous mets with new soft tissue involvement in the posterior upper left pelvis and new small mass adjacent to left psoas muscle. Fentanyl patch initiated by provider. Additional recommendations to continue breakthrough Oxy IR with dosage adjustment to 10 mg every 6 hours as needed for breakthrough pain. Outpatient bone scan few days ago showed diffuse intense uptake throughout the axial and appendicular spine. Worsening left hip pain noted the last week. No fever, some chills. No trauma/fall. No chest pain, no SOB. Patient with constipation symptoms without abdominal pain/nausea, vomiting. Patient consulted ER for intractable left hip pain. 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 Allergies Allergy/AdvReac Type Severity Reaction Status Date / Time No Known Allergies Allergy Mild Verified 01/18/22 06:16 Home Medications Medication Instructions Recorded Confirmed Type acetaminophen 500 mg tablet 500 mg PO Q6H PRN 01/06/22 01/18/22 History (Tylenol Extra Strength) alprazolam 0.5 mg tablet (Xanax) 0.5 mg PO HS tab 01/06/22 01/18/22 History apalutamide 60 mg tablet 240 mg PO DAILY 01/06/22 01/18/22 History calcium carbonate 600 mg-vitamin 2 tab PO QID tab 01/06/22 01/18/22 History D3 10 mcg (400 unit) chewable tablet diclofenac sodium 1 % topical gel 2 g TOPICAL QID 01/06/22 01/18/22 History fentanyl 25 mcg/hr transdermal 1 patch TRANSDERMAL Q72H #10 ea 01/06/22 01/18/22 Rx patch naloxone 4 mg/actuation nasal spray 1 spray INTRANASAL Q3M PRN #2 ea 01/06/22 01/18/22 Rx oxycodone 15 mg tablet 15 mg PO Q6H PRN 01/06/22 01/18/22 History potassium phosphate, monobasic 500 1,000 mg PO TID 01/06/22 01/18/22 History mg soluble tablet pravastatin 20 mg tablet 20 mg PO DAILY 01/06/22 01/18/22 History apalutamide 60 mg tablet (Erleada) 60 mg PO DAILY 01/18/22 01/18/22 History omeprazole 20 mg capsule,delayed 20 mg PO DAILY 01/18/22 01/18/22 History release Past Med/Surg History Medical History Chronic pain due to malignant neoplastic disease Degenerative disc disease Hearing loss Hyperlipidemia Lumbar spinal stenosis Mass of colon with enlarged lymph nodes Metastatic disease Prostate cancer Renal colic on right side Tinnitus Surgical History History of appendectomy History of colonoscopy History of tonsillectomy Family History Other Cancer Colorectal cancer Heart disease Lung disease Social History Smoking Status: Never smoker Second Hand Exposure: No; Hx Alcohol Use: No Hx Substance Use: No Preferred Language: Dominican Communication Ability: Effective Territory Sales Representative Required: No Beliefs That Will Affect Care: None marital status: Single Current Living Situation: Family Feels Safe at Home: Yes Assistive Devices: None Review of Systems Review of Systems: As per HPI, all other systems reviewed and negative Physical Exam Physical Exam: GENERAL: uncomfortable, slightly anxious, no respiratory distress SKIN: Pallor, warm HEENT: Bespectacled, pale palpebral conjunctivae, no ptosis, dry buccal mucosa NECK : Supple, no tenderness CHEST : CTA, no tenderness HEART : RRR, no obvious murmurs ABDOMEN: Some distention, nontender EXTREMITIES : No LE swelling, left hip tenderness, no other conspicuous deformities noted NEUROLOGIC : Coherent, no facial asymmetry, gait and stance not assessed Results & Data Results & Data ([facility]) Vital Signs (Past 12 Hours) Vital Signs Temp Pulse Pulse Resp BP BP Pulse Ox 01/18/22 06:00 96 H 16 132/78 98 01/18/22 05:30 98 H 16 115/69 97 01/18/22 03:52 36.4 C L 107 H 17 130/94 99 01/18/22 03:46 36.4 C 107 H 17 130/94 99 Laboratory Results Laboratory Results WBC 6.59 K/uL (4.8-10.8) 01/18/22 04:18 RBC 4.39 M/uL (4.7-6.1) L 01/18/22 04:18 Hgb 12.8 g/dL (14.0-18.0) L 01/18/22 04:18 Hct 38.5 % (42-52) L 01/18/22 04:18 MCV 87.7 fL (80-100) 01/18/22 04:18 MCH 29.2 pg (25-34) 01/18/22 04:18 MCHC 33.2 g/dL (32-36) 01/18/22 04:18 RDW Std Deviation 44.7 fL (36.4-46.3) 01/18/22 04:18 RDW Coeff of Rosetta 13.8 % (11.5-14.5) 01/18/22 04:18 Plt Count 205 K/uL (130-400) 01/18/22 04:18 MPV 8.8 fL (7.4-10.4) 01/18/22 04:18 Neutrophils % (Manual) 63.6 % 01/18/22 04:18 Lymphocytes % (Manual) 27.8 % 01/18/22 04:18 Monocytes % (Manual) 5.2 % 01/18/22 04:18 Eosinophils % (Manual) 1.7 % 01/18/22 04:18 Myelocytes % (Man) 1.7 % 01/18/22 04:18 Neutrophils # (Manual) 4.19 K/uL (1.4-6.5) 01/18/22 04:18 Total Absolute Neuts 4.19 K/uL (1.4-6.5) 01/18/22 04:18 Lymphocytes # (Manual) 1.83 K/uL (1.2-3.4) 01/18/22 04:18 Total Abs Lymphocytes 1.83 K/uL (1.2-3.4) 01/18/22 04:18 Monocytes # (Manual) 0.34 K/uL (0.11-0.59) 01/18/22 04:18 Eosinophils # (Manual) 0.11 K/uL (0-0.5) 01/18/22 04:18 Myelocytes # (Manual) 0.11 K/uL (0-0) H 01/18/22 04:18 RBC Morphology Unremarkable 01/18/22 04:18 Sodium 134 mmol/L (136-145) L 01/18/22 04:18 Potassium 4.1 mmol/L (3.5-5.1) 01/18/22 04:18 Chloride 101 mmol/L (98-107) 01/18/22 04:18 Carbon Dioxide 25 mmol/L (21-32) 01/18/22 04:18 Anion Gap 8 (3-11) 01/18/22 04:18 BUN 16 mg/dl (6-23) 01/18/22 04:18 Creatinine 0.74 mg/dl (0.6-1.4) 01/18/22 04:18 Est Cr Clr Drug Dosing 100.0 ml/min 01/18/22 04:18 Est GFR ( Amer) 110.6 ml/min 01/18/22 04:18 Est GFR (Non-Af Amer) 95.4 ml/min 01/18/22 04:18 BUN/Creatinine Ratio 21.6 (10-20) H 01/18/22 04:18 Glucose 110 mg/dl (70-99(Fasting)) H 01/18/22 04:18 Calcium 8.9 mg/dl (8.5-10.1) 01/18/22 04:18 Phosphorus 1.1 mg/dl (2.5-4.9) L* 01/18/22 04:18 Magnesium 2.3 mg/dl (1.7-2.4) 01/18/22 04:18 Total Bilirubin 0.4 mg/dl (0.2-1.0) 01/18/22 04:18 AST 19 U/L (13-39) 01/18/22 04:18 ALT 8 U/L (7-52) 01/18/22 04:18 Alkaline Phosphatase 213 U/L (34-104) H 01/18/22 04:18 Total Protein 7.2 gm/dl (6.0-8.3) 01/18/22 04:18 Albumin 3.6 gm/dl (3.4-5.0) 01/18/22 04:18 Globulin 3.6 gm/dl (2.5-4.0) 01/18/22 04:18 Albumin/Globulin Ratio 1.0 (0.9-2) 01/18/22 04:18 Urine Color Yellow 01/18/22 06:27 Urine Appearance Clear (Clear) 01/18/22 06:27 Urine pH 6.5 (4.5-7.5) 01/18/22 06:27 Ur Specific [place] 1.023 (1.000-1.030) 01/18/22 06:27 Urine Protein Trace (Negative) H 01/18/22 06:27 Urine Glucose (UA) Negative (Negative) 01/18/22 06:27 Urine Ketones Negative (Negative) 01/18/22 06:27 Urine Blood Negative (Negative) 01/18/22 06:27 Urine Nitrite Negative (Negative) 01/18/22 06:27 Urine Bilirubin Negative (Negative) 01/18/22 06:27 Urine Urobilinogen Negative (Negative) 01/18/22 06:27 Ur Leukocyte Esterase Negative (Negative) 01/18/22 06:27 Urine WBC (Auto) 1-5 /hpf (0-5) 01/18/22 06:27 Urine RBC (Auto) 0-4 /hpf (0-4) 01/18/22 06:27 U Hyaline Cast (Auto) 0 /lpf (0-5) 01/18/22 06:27 U Epithel Cells (Auto) 0-5 /lpf (0-5) 01/18/22 06:27 Urine Bacteria (Auto) Negative (Negative) 01/18/22 06:27 SARS-CoV-2, RNA, NAAT NEGATIVE (NEGATIVE) 01/18/22 05:56 Diagnostic Findings Left hip x-ray as per my interpretation : Metastatic bone lesions EKG as per my interpretation: Rate 100, NSR, normal axis, no ischemia
[2022-01-18] MEDS ORDERED: SODIUM CHLORIDE 0.9% 1000ML 1,000 ML IV ONE (07:04)
[2022-01-18] MEDS ORDERED: LORazepam 2 MG/1 ML VIAL IV PRN (07:04)
[2022-01-18 07:19] LABS: Estimated Average Glucose 137 mg/dl; Hemoglobin A1C 6.4 % (4.5-5.6)
[2022-01-18] MEDS ORDERED: oxyCODONE HCL IR 5 MG TAB (IMMEDIATE RELEASE) PO PRN ×2 (07:57→08:03)
[2022-01-18] MEDS ORDERED: MoRPHine SULFATE 4 MG/ML 1 ML CARP\\VIAL IV PRN (08:02)
[2022-01-18] MEDS: DOCUSATE SODIUM/SENNA 50/8.6MG TAB PO SCH ×2 (08:17→20:57)
--- NOTE | 2022-01-18 08:36 | XRay Report ---
LEFT HIP 2 VIEWS CLINICAL HISTORY: Left hip pain. FINDINGS: AP and frog-leg views of the left hip are correlated with pelvic CT dated 02/11/2021. There i s evidence of diffuse osteoblastic metastatic disease involving the visualized bony pelvis and the le ft proximal femur. There is no radiographic evidence of acute fracture involving the left hip or the visualized left hemipelvis. Mild degenerative joint space narrowing is seen in the left hip. The over lying soft tissues are within normal limits. Numerous phleboliths are seen in the pelvis. IMPRESSION: 1. There is no radiographic evidence of acute fracture involving the left hip or the visualized hemip isaiah. 2. 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 Electronically signed by: Caleb Bruno M.D. 01/18/2022 8:35 AM
[2022-01-18] MEDS ORDERED: OPTIRAY 320 100ml IV ONE (08:54)
--- NOTE | 2022-01-18 09:06 | CT Scan Report ---
CT hip LT w con CLINICAL HISTORY: worseing L hip pain, hx CA COMPARISON STUDY: CT of the abdomen and pelvis from 02/11/2021 CT DOSE: 198.77 mGy.cm TECHNIQUE: Standard CT of the left hip is performed without IV contrast. Multiplanar reconstruction i s performed. A dose lowering technique was utilized adhering to the principles of ALARA. FINDINGS: Bones: Diffuse blastic metastases are again seen throughout the imaged portion of the pelvis and left hip. There is no evidence for an acute fracture or dislocation. However, there has been interval dev elopment of a lytic lesion within the imaged portion of the proximal left femoral shaft measuring nayana roximately 2.1 x 1.8 x 1.5 cm in size. A second new lytic lesion is seen involving the superior left acetabulum. It measures approximately 1 0 x 8 x 7 mm. No other definite lytic lesions are seen. Joints: Left hip joint space is maintained. The bones are in anatomic alignment. Soft tissues: There is no focal soft tissue swelling. There are no focal fluid collections. IMPRESSION: 1. Diffuse blastic metastases are again identified throughout the imaged portion of the left hip and pelvis. 2. There has been interval development of 2 new lytic lesions, one within the proximal left femoral s haft and the second within the superior left acetabulum. This is most likely the etiology of the joao ent's worsening pain. The referring clinician will be informed of these findings. ACT 112: Positive. There are findings on this exam that require communication between the performing entity and the patient following Patient Test Result Information Act ([place] Act 112) guidelines. Electronically signed by: Miguel Sevilla M.D. 01/18/2022 9:05 AM
[2022-01-18] MEDS ORDERED: ACETAMINOPHEN 325 MG TAB PO PRN (09:23)
[2022-01-18] MEDS ORDERED: PROMETHAZINE HCL 12.5 MG in SODIUM CHLORIDE 0.9% 50 ML IV PRN (09:23)
[2022-01-18] MEDS ORDERED: fentaNYL 25 MCG/HR TDSY TD SCH (09:23)
[2022-01-18] MEDS ORDERED: ENOXAPARIN INJ 40 MG/0.4 ML SYR SQ SCH (09:23)
[2022-01-18] MEDS ORDERED: NALOXONE NASAL SPRAY 4 MG ER HOMEPACK PRN (09:23)
[2022-01-18] MEDS ORDERED: POLYETHYLENE (MIRALAX) 17 GM PACK PO PRN (09:23)
[2022-01-18] MEDS ORDERED: ALPRAZolam 0.5 MG TABLET PO PRN (09:23)
[2022-01-18] MEDS ORDERED: POTASSIUM PHOS 3 MMOL/1 ML INFUSION IV ONE (10:00)
[2022-01-18] MEDS ORDERED: POTASSIUM PHOSPHATE 9 MMOL in SODIUM CHLORIDE 0.9% 250 ML IV ONE (10:15)
[2022-01-18] MEDS: CALCIUM 600MG + VIT D 400 IU TAB PO SCH ×3 (12:10→20:41)
[2022-01-18] MEDS: DICLOFENAC SOD 1% GEL 100 GM TUBE EXT SCH ×4 (12:11→20:41)
[2022-01-18] MEDS: CHECK fentaNYL PATCH PLACEMENT SCH ×2 (12:12→15:41)
[2022-01-18] MEDS: APALUTAMIDE 60 MG PO SCH (12:12)
[2022-01-18] MEDS ORDERED: POT PHOSPHATE MONOBASIC W/ SOD TAB PO SCH (14:00)
[2022-01-18] MEDS ORDERED: POTASSIUM PHOSPHATE MONOBASIC 500 MG TAB PO SCH (14:00)
[2022-01-18] MEDS: POT PHOSPHATE MONOBASIC W/ SOD TAB PO SCH ×2 (14:03→20:40)
[2022-01-18] MEDS ORDERED: METHYLNALTREXONE BROMIDE 12 MG/0.6 ML VIAL SQ PRN (17:49)
[2022-01-18] MEDS ORDERED: HYDROmorphone PCA 30 MG/30 ML IV PRN (17:49)
[2022-01-18] MEDS ORDERED: NALOXONE HCL 0.4 MG/1 ML VIAL/CARP IV PRN (17:49)
[2022-01-18] MEDS ORDERED: SODIUM CHLORIDE 0.9% 1000ML 1,000 ML IV SCH (18:00)
--- NOTE | 2022-01-18 18:20 | Pain Management Consultation ---
Date of Consultation January 18, 2022 Assessment & Plan (1) Prostate cancer metastatic to bone: (2) Chronic pain due to malignant neoplastic disease: (3) Hip pain, acute: Laterality: left Qualified Code(s): M25.552 - Pain in left hip 1. Recommend increasing fentanyl patch to 37 mcg every 72 hours and ini tiation of hydromorphone SALES DEMONSTRATOR 0.2 mg IV every 15 as needed without basal rate. This will allow us to recalculate his opiate needs. He was counseled and advised on how to best utilize a SALES DEMONSTRATOR. 2. Recommend adding MiraLAX daily and Relistor as needed for bowel regimen purposes. 3. Recommend addition of Lidoderm patch to left hip. 4. Consider utilization of descending regulatory agent such as Cymbalta in the future to minimize pain. This was not addressed at today's visit, but can be considered for the future. 5. Recommend obtaining input from radiation oncology to determine if XRT is an option to the left hip for pain control. If this is not an option, may consider interventional pain management options in the future as an outpatient. Consult placed. 6. Thank you for this consultation we will follow up with him tomorrow morning. History of Present Illness Attending Physician: Anaid Mccurdy MD History of Present Illness 66-year-old male recently known to the [facility] pain management office who has a history of metastatic prostate cancer diagnosed October 2020 (widespread skeletal metastasis, pulmonary metastasis and pathologic lymphadenopathy. 2 new lytic lesions noted on CT of the hip today.) Patient follows with Dr. Lam in oncology and has/is currently utilizing Xgeva, Firmagon and apalutamide. He was placed on fentanyl 25 mcg patch as well as Oxy IR 10 mg taking consistently 3/day as prescribed by my office. He states he was doing well with pain control until very recently over the last few days when pain became progressive over his left hip and on tolerable at home prompting his admission through the [facility] emergency room. He states that pain is sharp stabbing pressure aching over his entire left hip girdle. In addition he has had difficulty with constipation but was able to move his bowels earlier today. Otherwise he had been relatively satisfied with his fentanyl patch and Oxy IR breakthrough pain medication with limited side effects. He states that the fentanyl patch was able to perform significantly better than OxyContin in the past. His pain currently ranges between a 4-9/10. Patient reports increased pain with prolonged sitting, lying supine and walking only mildly improved with position changes but significantly improved with fentanyl patch. Sleep is still d ifficult secondary to pain. Previous interventions include heat, acetaminophen, opiates and Voltaren gel, Oxy IR 10-15 mg every 4 hours He reports some generalized weakness of the lower extremities but he denies foot drop or falls. He denies bowel or bladder incontinence and has no saddle anest hesia. He has no lower extremity paresthesia complaints. Pain Assessment Full Body Front + Back: 1. [facility] Combined Pain Scale: 4-Mild to Mod - Interrupts ADLs. Decrease in job performance Pain scale - at its best (0-10): 4 Pain scale - at its worst (0-10): 9 Allergies Allergy/AdvReac Type Severity Reaction Status Date / Time No Known Allergies Allergy Mild Verified 01/18/22 06:16 Home Medications Medication Instructions Recorded Confirmed Type acetaminophen 500 mg tablet 500 mg PO Q6H PRN 01/06/22 01/18/22 History (Tylenol Extra Strength) alprazolam 0.5 mg tablet (Xanax) 0.5 mg PO HS tab 01/06/22 01/18/22 History apalutamide 60 mg tablet 240 mg PO DAILY 01/06/22 01/18/22 History calcium carbonate 600 mg-vitamin 2 tab PO QID tab 01/06/22 01/18/22 History D3 10 mcg (400 unit) chewable tablet diclofenac sodium 1 % topical gel 2 g TOPICAL QID 01/06/22 01/18/22 History fentanyl 25 mcg/hr transdermal 1 patch TRANSDERMAL Q72H #10 ea 01/06/22 01/18/22 Rx patch naloxone 4 mg/actuation nasal spray 1 spray INTRANASAL Q3M PRN #2 ea 01/06/22 01/18/22 Rx oxycodone 15 mg tablet 15 mg PO Q6H PRN 01/06/22 01/18/22 History potassium phosphate, monobasic 500 1,000 mg PO TID 01/06/22 01/18/22 History mg soluble tablet pravastatin 20 mg tablet 20 mg PO DAILY 01/06/22 01/18/22 History apalutamide 60 mg tablet (Erleada) 60 mg PO DAILY 01/18/22 01/18/22 History omeprazole 20 mg capsule,delayed 20 mg PO DAILY 01/18/22 01/18/22 History release Pain History Pain Intensity Pain scale - at its best (0-10): 4 Pain scale - at its worst (0-10): 9 Patient History Medical History Chronic pain due to malignant neoplastic disease Degenerative disc disease Hearing loss Hyperlipidemia Lumbar spinal stenosis Mass of colon with enlarged lymph nodes Metastatic disease Prostate cancer Renal colic on right side Tinnitus Surgical History History of appendectomy History of colonoscopy History of tonsillectomy Family History Other Cancer Colorectal cancer Heart disease Lung disease Social History Smoking Status: Never smoker Second Hand Exposure: No; Do You Dip or Chew Tobacco: No; Hx Alcohol Use: No Hx Substance Use: No Preferred Language: Lao Communication Ability: Effective Guide Winder Required: No Beliefs That Will Affect Care: None marital status: Single Current Living Situation: Family Other Information That Helps Us Care for You: No Feels Safe at Home: Yes and No Is there a partner from a previous relationship who is making you feel unsafe now?: No Any Concerns about Your Family Situation: No Would You Like to Speak to Someone About Your Situation: No Safety Concerns: Feels Safe At This Time Assistive Devices: Cane and Glasses Physical Exam Physical Exam: Constitutional: Well-developed, well-nourished, healthy- appearing, normal weight Psych: Awake, alert, and oriented 3 with normal affect and mood. Recent memory appears grossly intact Eyes: Pupils are equally round and reactive to light with normal size pupils, eyelids appear normal Ear, nose, mouth, and throat: Moist nasal and oral membranes, lips and tongues appear normal, no external ear abnormalities are noted Neck: The trachea is midline without deviation and no thyromegaly is noted Respiratory: Normal respiratory effort without distress, no audible wheezes or rhonchi CV: Normal S1 and S2 Chest: Deferred GI/abdomen: Non-tender without guarding, soft nondistended Musculoskeletal: Head is normocephalic and atraumatic, gait not observed , utilizes a 4 wheeled rolling walker for assistance Left hip: Patient is tender over his entire left hip girdle with minimal palpation. Active and passive motion is difficult to assess secondary to pain Cervical: Strength: Strength is grossly equal bilaterally with 5 out of 5 strength in all planes Thoracic: Kyphotic curve: Normal Range of motion is normal with extension, flexion, side-bending, rotation Tenderness: Nontender over the axial midline Myofascial spasm: No appreciable spasm. No discrete trigger points noted Lumbar: Lordotic curve: Lumbar lordosis Range of motion is decreased in all planes Tenderness: Mild to moderately tender over the axial midline Facet provocation: Negative bilaterally Straight leg raise: Negative bilaterally Step-off injuries: None Strength: Strength is grossly equal bilaterally with 5 out of 5 strength in all planes Sensation of lower extremities: Intact bilaterally Myofascial spasm: No appreciable spasm. No discrete trigger points noted Greater trochanters: Tender on the left negative on the right Sacroiliac joints: Mildly tender on the left negative on the right Pathologic reflexes noted: None Skin: No rashes, lesions, ulcers, or induration noted Neuro: No nystagmus noted, the tongue is midline, the patient is able to rotate their head bilaterally : Deferred Results (Pain Clinic) Diagnostic Review CT: non enhanced, reports reviewed, images reviewed and findings discussed with patient CT Findings: 01/18/22 CT hip LT w con CLINICAL HISTORY: worseing L hip pain, hx CA COMPARISON STUDY: CT of the abdomen and pelvis from 02/11/2021 CT DOSE: 198.77 mGy.cm TECHNIQUE: Standard CT of the left hip is performed without IV contrast. Multiplanar reconstruction is performed. A dose lowering technique was utilized adhering to the principles of ALARA. FINDINGS: Bones: Diffuse blastic metastases are again seen throughout the imaged portion of the pelvis and left hip. There is no evidence for an acute fracture or dislocation. However, there has been interval development of a lytic lesion within the imaged portion of the proximal left femoral shaft measuring approximately 2.1 x 1.8 x 1.5 cm in size. A second new lytic lesion is seen involving the superior left acetabulum. It measures approximately 10 x 8 x 7 mm. No other definite lytic lesions are seen. Joints: Left hip joint space is maintained. The bones are in anatomic alignment. Soft tissues: There is no focal soft tissue swelling. There are no focal fluid collections. IMPRESSION: 1. Diffuse blastic metastases are again identified throughout the imaged portion of the left hip and pelvis. 2. There has been interval development of 2 new lytic lesions, one within the proximal left femoral shaft and the second within the superior left acetabulum. This is most likely the etiology of the patient's worsening pain. 02/11/21 CT SCAN OF THE PELVIS WITH IV CONTRAST CLINICAL HISTORY: Acute pelvic pain. COMPARISON STUDY: Pelvic CT dated 11/21/2020. TECHNIQUE: Following the IV administration of 96 mL of Optiray 320, CT scan of the pelvis is performed from the pelvic inlet to the proximal femora. Images are reviewed in the axial, sagittal, and coronal planes. IV contrast was a dministered without complication. Oral contrast was utilized. A dose lowering technique was utilized adhering to the principles of ALARA. FINDINGS: The bladder is normal as visualized. The prostate gland is diminutive and heterogeneous. The seminal vesicles are normal as imaged. Small bilateral fat- containing inguinal hernias are noted. There is no pelvic sidewall or inguinal lymphadenopathy. The iliac vessels appear patent. Lateral varicoceles are suggested. Imaged portions of the small bowel and colon are normal in caliber. Enteric contrast reaches the right colon. The appendix is not identified and reported surgically absent. There is a fat-containing umbilical hernia. No intraperitoneal free air or ascites is seen in the pelvis. The perianal soft tissues are normal as imaged. The skeletal structures are heterogeneous, with evidence of diffuse osteoblastic metastatic disease. There is no evidence of pathologic fracture. The regional musculature is normal and symmetric. IMPRESSION: 1. There is evidence of diffuse osteoblastic metastatic disease throughout the pelvis. 2. There is no evidence of pathologic fracture. 3. The prostate gland is diminutive and heterogeneous. 4. Iliac chain/pelvic sidewall lymphadenopathy and perirectal nodules have essentially resolved as compared to 11/21/2020 Radiology: reports reviewed and findings discussed with patient Radiology Findings: 01/18/22 LEFT HIP 2 VIEWS CLINICAL HISTORY: Left hip pain. FINDINGS: AP and frog-leg views of the left hip are correlated with pelvic CT dated 02/11/2021. There is evidence of diffuse osteoblastic metastatic disease involving the visualized bony pelvis and the left proximal femur. There is no radiographic evidence of acute fracture involving the left hip or the visualized left hemipelvis. Mild degenerative joint space narrowing is seen in the left hip. The overlying soft tissues are within normal limits. Numerous phleboliths are seen in the pelvis. IMPRESSION: 1. There is no radiographic evidence of acute fracture involving the left hip or the visualized hemipelvis. 2. 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 Previous Records Review Previous Records: personally reviewed by me Opioid Risk Assessment Opioid Risk Assessment: risk assessment performed and no issues identified
[2022-01-18] MEDS: fentaNYL 12 MCG/HR TDSY TD SCH (18:31)
[2022-01-18] MEDS: fentaNYL 25 MCG/HR TDSY TD SCH (18:32)
--- NOTE | 2022-01-18 18:49 | Communication Note ---
Date of Service: January 18, 2022 Pt was seen and examined. Lying in bed with no acute distress. He said that pain is control. Pt called his brother that i could update his brother. His brother said that he called [facility] and the staff said that patient can be transferred. I tried to explain the transfer process to the patient and his brother that i don't think [facility] will accept the case in transfer since it would be for a second opinion and it it not an acute visit or service that [facility] does not have. The brother said they have been trying to get to [facility] to see an Oncologist for weeks and when they called [facility] today they said it will be easy to do hospital to hospital transfer. I also informed patient that he might get a bill for the transport. I called the transfer service twice. They took my info and said Dr. Miller who is the educational speech language clinician Oncologist will call me to discuss the case. I told patient once I hear from [facility] I ll come to update him. MD Calli
[2022-01-18] MEDS: KETOROLAC TROMETHAMINE 15 MG/ML VIAL IV PRN (20:39)
[2022-01-18] MEDS: PRAVASTATIN SOD 20 MG TAB PO SCH (20:40)
[2022-01-19] MEDS ORDERED: CHECK FENTANYL 12 MCG SCH
[2022-01-19] MEDS: CHECK FENTANYL 25 MCG SCH ×3 (00:13→18:19)
[2022-01-19] MEDS: CHECK FENTANYL 12 MCG SCH ×3 (00:13→18:19)
--- NOTE | 2022-01-19 01:41 | Communication Note ---
Date of Service: January 19, 2022 Patient with hematuria as per RN. Patient asymptomatic. Check UA. Hold Lovenox for now.
[2022-01-19 02:12] LABS: Hematocrit (blood only) 33.5 % (42-52); Hemoglobin 11.3 g/dL (14.0-18.0); Mean Corpuscular Hemoglobin 29.2 pg (25-34); Mean Corpuscular Hgb Conc 33.7 g/dL (32-36); Mean Corpuscular Volume 86.6 fL (80-100); Mean Platelet Volume 8.5 fL (7.4-10.4); Platelet Count 170 K/uL (130-400); RDW Coefficient of Variation 13.9 % (11.5-14.5); RDW Standard Deviation 43.7 fL (36.4-46.3); Red Blood Count 3.87 M/uL (4.7-6.1)
[2022-01-19 02:32] LABS: ANC (manual) 2.75 K/uL (1.4-6.5); Basophils # (manual) 0.05 K/uL (0-0.2); Basophils % (manual) 0.9 %; Eosinophils # (manual) 0.25 K/uL (0-0.5); Eosinophils % (manual) 4.4 %; Lymphocytes % (manual) 38.6 %; Metamyelocytes % (manual) 1.8 %; Monocytes # (manual) 0.15 K/uL (0.11-0.59); Monocytes % (manual) 2.6 %; Myelocytes % (manual) 3.5 %; Neutrophils # (manual) 2.75 K/uL (1.4-6.5); Neutrophils % (manual) 48.2 %; RBC Morphology Unremarkable
[2022-01-19 02:40] LABS: Calcium 7.7 mg/dl (8.5-10.1); Creatinine Clr Calc Pharmacy 137.1 ml/min; Est GFR (African American) 125.9 ml/min; Est GFR (Non-African American) 108.6 ml/min; Potassium 3.5 mmol/L (3.5-5.1)
[2022-01-19 04:52] LABS: Appearance Urine Clear (Clear); Bacteria Urine Automated Negative (Negative); Bilirubin Urine Negative (Negative); Blood Urine 1+ (Negative); Color Urine Yellow; Glucose Urine UA Negative (Negative); Ketones Urine Negative (Negative); Leukocyte Esterase Urine Negative (Negative); Nitrite Urine Negative (Negative); RBC Urine Automated >30 /hpf (0-4); Specific Gravity Urine 1.011 (1.000-1.030); Urobilinogen Urine Negative (Negative)
[2022-01-19 04:57] LABS: Protein Urine 1+ (Negative)
[2022-01-19] MEDS: CALCIUM 600MG + VIT D 400 IU TAB PO SCH ×4 (08:48→20:18)
[2022-01-19] MEDS: DOCUSATE SODIUM/SENNA 50/8.6MG TAB PO SCH ×2 (08:48→20:17)
[2022-01-19] MEDS: LIDOCAINE 5% 1 PATCH TD SCH (08:48)
[2022-01-19] MEDS: POT PHOSPHATE MONOBASIC W/ SOD TAB PO SCH ×3 (08:48→20:18)
[2022-01-19] MEDS: POLYETHYLENE (MIRALAX) 17 GM PACK PO SCH (08:48)
[2022-01-19] MEDS: PANTOprazole 40 MG TAB PO SCH (08:48)
[2022-01-19] MEDS: DICLOFENAC SOD 1% GEL 100 GM TUBE EXT SCH ×4 (08:48→20:17)
[2022-01-19] MEDS: APALUTAMIDE 60 MG PO SCH (08:49)
--- NOTE | 2022-01-19 09:00 | Pain Management Progress Note ---
Date of Service January 19, 2022 Assessment & Plan (1) Prostate cancer metastatic to bone: (2) Hip pain, acute: Laterality: left Qualified Code(s): M25.552 - Pain in left hip (3) Intractable pain: (4) Chronic pain due to malignant neoplastic disease: Plan: * Fentanyl patch will remain at 37mcg/hr * Dilaudid WELL TESTER was discontinued with minimal use * Continue Oxycodone 10mg x 4 hours PRN * He is scheduled for follow up with pain management office on 01/27 at 10:30 * Please contact with any questions or concerns. Thank you. Admission and Anticipated Discharge Date Admission Date: January 18, 2022 Subjective Mr. Hand is a 66 year old male with metastatic prostate cancer. He was seen in the Pain Management office on 01/06 and placed on Fentanyl patch 25mcg/hr and could continue Oxycodone 10mg x 6 hours if needed. He states that the Fentanyl patch was providing adequate pain relief and he was using the Oxycodone sparingly. He states that after the Xgeva injection he typically has increased pain and despite taking the Oxycodone 10mg x 6 hours the pain was not able to be controlled. Fentanyl was increased to 37mcg/hr and ordered a Dilaudid WELL TESTER and used 0.6mg over the past 12 hours. He is comfortable with his current pain level and denies any side effects. Physical Exam Physical Exam: GENERAL: This is a 66 year old male that is laying supine in the hospital bed, in no acute distress. HEAD/FACE: Normocephalic and atraumatic. EYES: No drainage or conjunctival injection. ENT: Nose without bleeding or discharge. Oral mucosa moist. NECK: Full ROM without apparent pain. No swelling or masses noted. RESPIRATORY: Patient with unlabored breathing. No signs of respiratory distress. CHEST/AXILLA: Chest movement symmetrical. No deformities noted. BACK: Moves without difficulty SKIN: [place], warm and dry. No rash noted. MS/EXTREMITY: No swelling, no deformities. Moving extremities appropriately. NEURO: Alert and appears oriented. Speech is fluent. Cranial Nerves are grossly intact. PSYCH: Alert, pleasant, affect is calm
[2022-01-19] MEDS ORDERED: POTASSIUM PHOS 3 MMOL/1 ML INFUSION IV STA (09:10)
[2022-01-19] MEDS ORDERED: POTASSIUM PHOSPHATE 21 MMOL in DEXTROSE 5% 500 ML IV ONE (09:30)
--- NOTE | 2022-01-19 10:07 | Radiation OncologyConsultation ---
Date of Consultation January 19, 2022 Assessment & Plan (1) Prostate cancer metastatic to bone: Assessment: Patient is a 66-year-old male who presented with metastatic prostate cancer in November of last year. He has been on apalutamide, Firmagon and Xgeva. He has had an initial response with shrinkage of his pelvic adenopathy. However he is had a complaint of persistent left hip pain which has become more severe recently. He is on pain medication consisting of fentanyl patch 37 mcg/h and Oxy IR at 10 mg as needed. With rest and treatment in the hospital patient presently is able to rest without pain but has significant pain with motion. Treatment Options: 1. Continue standard treatment with apalutamide, Firmagon and Xgeva. 2. Continue pain medication. 3. Proceed with palliative radiation to the left pelvic bones and hip. Recommendations: I have recommended the patient consider course of palliative radiation to the left pelvis and hip. Plan: 1. The patient would like to proceed with a course of palliative radiation. 2. We will schedule the patient to come to our department for CT simulation. 3. Patient is scheduled to see Dr. Johan Lam as an outpatient this Monday if discharged. 4. Following completion of the treatment plan and approval we will start the patient course of palliative radiation as an outpatient if discharged likely next week or if he is still an inpatient we will start him as an inpatient. Rationale/Explanation of Treatment: Patient is on systemic therapy consisting of apalutamide, Firmagon and Xgeva. His scans show persistent widespread metastatic bony disease but despite this he only has pain in the left pelvis and hip region. I reviewed his scans with radiology and there is evidence of progressive metastatic disease. I recommended a course of palliative radiation to the left pelvis and hip for pain control and to prevent fracture of the left femur. I reviewed the potential risks and side effects and the patient has verbally agreed to treatment. We will obtain a consent form when he comes down for his CT simulation later today. The patient had multiple questions which were answered to his full satisfaction. Thank you for allowing us to participate in the care of this patient. This chart was completed in part utilizing [employer] Voice Recognition software. Grammatical errors, random word insertions, pronoun errors and incomplete sentences are occasional consequence of this system due to software limitations, ambient noise and hardware issues. Any formal questions or concerns about the content, text or information contained within the body of this dictation should be directly addressed to the provider for clarification. Dani Maldonado MD Department of Radiation Oncology [facility] History of Present Illness Reason for Consultation: Intractable left hip pain. Attending Physician: Anaid Mccurdy MD History of Present Illness Mr. Rivers is a 66-year-old male who was diagnosed with metastatic prostate cancer in October of last year. 10/29/2020. Patient undergoes CT of the abdomen and pelvis with contrast for complaint of lower abdominal/flank pain. This showed evidence of widespread sclerotic skeletal metastasis, pulmonary metastasis and pathologic lymphadenopathy within the abdomen and pelvis. Metastatic prostate cancer is the likely cause. 11/06/2020. Dr. Deanna Dodd performed an FNA of a abnormal left iliac lymph node. This confirmed metastatic adenocarcinoma of prostatic origin. A polypectomy was performed confirming an irregular colonic type mucosa with hyperplastic changes but no malignancy. The patient underwent endoscopy for abnormal CT scan. 11/21/2020. Patient undergoes CT of the abdomen and pelvis. This showed slight progression of metastatic disease within the abdomen and pelvis with left pelvic sidewall nodes measuring 3.8 x 2.6 previously measuring 3.2 x 2.5 cm. There is near diffuse osteoblastic metastatic disease again noted. Chest CT showed no evidence of pulmonary embolus. There was interval progression of metastatic disease within the left chest with hilar lymphadenopathy and pleural/pulmonary metastatic disease increased from prior studies. There was a paraspinal soft tissue extension of tumor with the suggestion of mild epidural extension within the mid thoracic region. No significant cord narrowing was appreciated. 11/23/2020. Patient undergoes staging whole-body bone scan. This showed evidence of extensive skeletal metastatic disease within near SuperScan. 12/02/2020. Patient is seen by Dr. Johan Lam (medical oncology) with recent diagnosis of metastatic prostate. Patient's PSA was 55 at the time of diagnosis. He plan to start the patient on apalutamide 240 mg daily. He was placed on Casodex previously and this will be stopped. He will continue to receive ADT therapy in the form of Firmagon by Dr. Treviño. Dr. Aleisha Lam also planned Xgeva monthly. 12/09/2020. Patient seen by Dr. Treviño in his office and giving a loading dose of Firmagon. 01/13/2021. Patient again undergoes a treatment of Firmagon 80 mg subcu. 02/11/2021. Patient undergoes CT of the pelvis. This again showed evidence of diffuse osteoblastic metastatic disease throughout the pelvis with no evidence of pathologic fracture. Iliac chain/pelvic sidewall lymphadenopathy and perirectal nodes have essentially resolved compared to the prior study of 11/21/2020. 10/15/2021. Patient seen by Bertha Rivas ([facility]). He was seen in follow-up and complaining of pain in his left hip and thigh rated as a 10 out of 10. He was on oxycodone 5 mg tablets. Xgeva has been stopped due to the complaint of jaw pain. He saw his dentist and he was cleared to resume Xgeva. 11/17/2021. Patient seen in follow-up by Yonny Lam MD (hematology/oncology. Patient was continuing on apalutamide 240 mg daily and monthly Firmagon and Xgeva. He stated the pain in the left hip and leg was better with the increasing dose of oxycodone. He had been able to stop his pain medication at that time. 01/06/2022. Patient seen by pain management. He was placed on a fentanyl patch 25 mcg and continue Oxy IR adjusting to a dose of 10 mg every 6 hours as needed for breakthrough. 01/18/2022. Patient presented the emergency department with complaint of increasing left hip pain. Images were taken as noted below. 01/18/2022. Left hip radiographs showed no radiographic evidence of acute fracture with evidence of diffuse osteoblastic metastatic disease again noted. CT of the left hip showed diffuse blastic metastasis again seen throughout the imaged portion of the pelvis and left hip. There is no evidence of acute fracture or dislocation. There has been interval development of a lytic lesion within the imaged portion of the proximal left femoral shaft measuring 2.1 x 1.8 x 1.5 cm. A second new lytic lesion is seen involving the superior left acetabulum measuring 1.0 x 0.8 x 0.7 cm. 01/18/2022. Patient seen by pain management. They increase the fentanyl patch to 37 mcg and initiated hydromorphone BIAS BINDING CUTTER 0.2 mg IV. Patient was stabilized. 01/19/2022. Patient seen by pain management for intractable pain. He continued on fentanyl patch at 37 mcg/h. Dilaudid BIAS BINDING CUTTER was discontinued due to minimal use. He was to continue oxycodone 10 mg every 4 hours as needed. 01/19/2022. Radiation oncology consult was called. Patient was seen to discuss the role of palliative radiation to the left hip. 01/21/2022. Patient is scheduled to see Dr. Johna Lam as an outpatient. This chart was completed in part utilizing [employer] Voice Recognition software. Grammatical errors, random word insertions, pronoun errors and incomplete sentences are occasional consequence of this system due to software limitations, ambient noise and hardware issues. Any formal questions or concerns about the content, text or information contained within the body of this dictation should be directly addressed to the provider for clarification. Dani Maldonado MD Department of Radiation Oncology [facility] Allergies Allergy/AdvReac Type Severity Reaction Status Date / Time No Known Allergies Allergy Mild Verified 01/18/22 06:16 Home Medications Medication Instructions Recorded Confirmed Type acetaminophen 500 mg tablet 500 mg PO Q6H PRN 01/06/22 01/18/22 History (Tylenol Extra Strength) alprazolam 0.5 mg tablet (Xanax) 0.5 mg PO HS tab 01/06/22 01/18/22 History apalutamide 60 mg tablet 240 mg PO DAILY 01/06/22 01/18/22 History calcium carbonate 600 mg-vitamin 2 tab PO QID tab 01/06/22 01/18/22 History D3 10 mcg (400 unit) chewable tablet diclofenac sodium 1 % topical gel 2 g TOPICAL QID 01/06/22 01/18/22 History fentanyl 25 mcg/hr transdermal 1 patch TRANSDERMAL Q72H #10 ea 01/06/22 01/18/22 Rx patch naloxone 4 mg/actuation nasal spray 1 spray INTRANASAL Q3M PRN #2 ea 01/06/22 01/18/22 Rx oxycodone 15 mg tablet 15 mg PO Q6H PRN 01/06/22 01/18/22 History potassium phosphate, monobasic 500 1,000 mg PO TID 01/06/22 01/18/22 History mg soluble tablet pravastatin 20 mg tablet 20 mg PO DAILY 01/06/22 01/18/22 History apalutamide 60 mg tablet (Erleada) 60 mg PO DAILY 01/18/22 01/18/22 History omeprazole 20 mg capsule,delayed 20 mg PO DAILY 01/18/22 01/18/22 History release Patient History Medical History Chronic pain due to malignant neoplastic disease Degenerative disc disease Hearing loss Hyperlipidemia Lumbar spinal stenosis Mass of colon with enlarged lymph nodes Metastatic disease Prostate cancer Renal colic on right side Tinnitus Surgical History History of appendectomy History of colonoscopy History of tonsillectomy Family History Other Cancer Colorectal cancer Heart disease Lung disease Social History Smoking Status: Never smoker Second Hand Exposure: No; Do You Dip or Chew Tobacco: No; Hx Alcohol Use: No Hx Substance Use: No Preferred Language: Armenian Communication Ability: Effective Director Translation Required: No Beliefs That Will Affect Care: None marital status: Single Current Living Situation: Family Other Information That Helps Us Care for You: No Feels Safe at Home: Yes and No Is there a partner from a previous relationship who is making you feel unsafe now?: No Any Concerns about Your Family Situation: No Would You Like to Speak to Someone About Your Situation: No Safety Concerns: Feels Safe At This Time Assistive Devices: Cane and Glasses Review of Systems Review of Systems: As per HPI, all other systems reviewed and negative Physical Exam Constitutional: The patient was lying in bed playing solitaire and was in no acute distress. Eyes: Eyes sclera white conjunctive a pink. Neck: There are no palpable cervical or supraclavicular adenopathy. No thyroid enlargement or carotid bruits appreciated. Respiratory: Lungs show adequate air movement which is clear to auscultation and percussion. Cardiovascular: Heart regular rhythm without murmurs appreciated. Gastrointestinal (Abdomen): Abdomen is soft nontender no masses or organomegaly appreciated. Musculoskeletal: The patient has movement of all extremities. However there is episodes of severe pain with movement of the pelvis and left hip. Neurologic: There are no cerebellar,'s sensory or motor abnormalities appreciated. Psychiatric: Patient is alert and oriented. Lymphatic: There were no abnormal palpable adenopathy appreciated. Results (Rad Onc) Pathology Results: were reviewed and pertinent findings noted in HPI Imaging Studies: were reviewed and pertinent findings noted in HPI Time Spent Attending This documentation has been prepared in full by Dr. Maldonado. I have personally reviewed the services described and have reviewed the documentation to ensure its accuracy. I spent 25 minutes with direct face to face interaction with the patient which included obtaining clinical information, recommending a plan of action and answering questions. I spent 30 minutes reviewing his scans with radiology and his chart and preparation of this document. ROSIO
[2022-01-19] MEDS: KETOROLAC TROMETHAMINE 15 MG/ML VIAL IV PRN ×3 (11:17→23:22)
--- NOTE | 2022-01-19 13:53 | Electrocardiogram Report ---
Test Reason : Blood Pressure : / mmHG Vent. Rate : 098 BPM Atrial Rate : 098 BPM P-R Int : 136 ms QRS Dur : 078 ms QT Int : 348 ms P-R-T Axes : 065 041 041 degrees QTc Int : 444 ms Poor data quality, interpretation may be adversely affected Normal sinus rhythm Normal ECG When compared with ECG of 21-NOV-2020 13:41, No significant change was found Confirmed by Abhijit Yuan ([id number]) on 01/19/2022 1:53:05 PM Referred By: Pramod Whipple Confirmed By:Abhijit Yuan
--- NOTE | 2022-01-19 17:18 | Hospitalist Progress Note ---
Date of Service January 19, 2022 Assessment & Plan (1) Intractable pain: Plan: Intractable left hip pain Chronic pain due to malignant neoplastic disease: Present on admission for worsening left hip pain Mostly due to metastasis prostate cancer CT hip showed diffuse blastic metastases are again identified throughout the imaged portion of the left hip and pelvis. Pain management on board Fentanyl patch will remain at 37mcg/hr and Continue Oxycodone 10mg x 4 hours PRN He is scheduled for follow up with pain management office on 01/27 at 10:30 Prostate Cancer with Mets Case discussed with Dr. Lam that said there is progression of the cancer Continue standard treatment with apalutamide, Firmagon and Xgeva. Radiation Oncology on board - Plan to proceed for palliative radiation to the left pelvic bones and hip. Called [facility] transfer for 2nd opinion Case discussed with [facility] Oncologist Dr. Vivar that said to consult Oncologist Dr. Granado (at our facility) for the second opinion and if Dr. Granado see the need to be transferred she will reach to [facility] I informed the patient and his brother (Pt called him on speaker) to let them know that [facility] declined the transfer Will Consult Dr. Granado for the second opinion Pt has a follow up appoitment with his outpatient oncologist Dr. Lam on 01/21 Hematuria Nurse motified night provider about hematuria Hgb 11.3 today Lovenox help for now Will check CBC in am Hyperglycemia Most recent Hgba1 6.4 Continue monitor Hypophosphatemia Phosp 1.2, Phos replaced Continue phosp supplement Continue monitor electrolytes DVT prophylaxis Lovenox subq hold today for possible hematuria Full code Admission and Anticipated Discharge Date Admission Date: January 18, 2022 Subjective Pt was seen and examined for follow up of back pain Lying in bed with no acute distress Pt said that pain is control I spoke to [facility] Dr. Vivar about to transfer for a second opinion Dr. Vivar said to consult Oncologist Dr. Granado for the second opinion and if Dr. Granado see the need to be transferred she will reach to [facility] I informed the patient and his brother (Pt called him on speaker) to let them know that [facility] declined the transfer They were ok to consult Dr. Granado for the 2nd opinion Pt denies any chest pain, palpitation, dizziness and SOB Review of Systems Review of Systems: All systems reviewed & are unremarkable except as noted in Subjective Physical Exam Physical Exam: General- No acute distress Head- atraumatic Eyes- PERRL, EOMI, ENT- oropharynx clear Neck- supple, no JVD Lungs- clear to auscultation Heart- regular rhythm; no murmur Abdomen- normal bowel sounds, soft, nontender Extremities- no calf tenderness Neuro- alert, oriented x 3; PERRL, EOMI; no facial palsy; no dysarthria Skin- warm & dry, pale Results & Data Results & Data ([facility]) Vital Signs (Past 12 Hours) Vital Signs Temp Pulse Resp BP Pulse Ox 01/19/22 16:04 37.0 C 86 16 116/74 98 01/19/22 07:28 37.1 C 89 14 125/75 97 01/19/22 05:46 37.0 C 89 15 124/75 97
[2022-01-19] MEDS: PRAVASTATIN SOD 20 MG TAB PO SCH (20:21)
[2022-01-20] MEDS: CHECK FENTANYL 12 MCG SCH ×3 (00:02→17:24)
[2022-01-20] MEDS: CHECK FENTANYL 25 MCG SCH ×3 (00:02→17:24)
[2022-01-20] MEDS: KETOROLAC TROMETHAMINE 15 MG/ML VIAL IV PRN ×3 (05:20→18:29)
[2022-01-20 07:42] LABS: Hematocrit (blood only) 33.9 % (42-52); Hemoglobin 11.5 g/dL (14.0-18.0); Mean Corpuscular Hemoglobin 29.6 pg (25-34); Mean Corpuscular Hgb Conc 33.9 g/dL (32-36); Mean Corpuscular Volume 87.1 fL (80-100); Mean Platelet Volume 8.9 fL (7.4-10.4); Platelet Count 190 K/uL (130-400); RDW Coefficient of Variation 13.7 % (11.5-14.5); RDW Standard Deviation 43.6 fL (36.4-46.3); Red Blood Count 3.89 M/uL (4.7-6.1); White Blood Count 5.02 K/uL (4.8-10.8)
[2022-01-20] MEDS ORDERED: SODIUM PHOSPHATE 3 MMOL/1 ML INFUSION IV STA (09:03)
[2022-01-20] MEDS: POT PHOSPHATE MONOBASIC W/ SOD TAB PO SCH (09:15)
[2022-01-20] MEDS: LIDOCAINE 5% 1 PATCH TD SCH (09:28)
[2022-01-20] MEDS: PANTOprazole 40 MG TAB PO SCH (09:28)
[2022-01-20] MEDS: APALUTAMIDE 60 MG PO SCH (09:28)
[2022-01-20] MEDS: POLYETHYLENE (MIRALAX) 17 GM PACK PO SCH (09:28)
[2022-01-20] MEDS: CALCIUM 600MG + VIT D 400 IU TAB PO SCH ×4 (09:28→21:36)
[2022-01-20] MEDS: DICLOFENAC SOD 1% GEL 100 GM TUBE EXT SCH ×4 (09:28→21:36)
[2022-01-20] MEDS: DOCUSATE SODIUM/SENNA 50/8.6MG TAB PO SCH ×2 (09:28→21:41)
[2022-01-20] MEDS ORDERED: SODIUM PHOSPHATE 30 MMOL in SODIUM CHLORIDE 0.9% 500 ML IV ONE (09:30)
[2022-01-20] MEDS ORDERED: SIMETHICONE 80 MG CHEW PO PRN (16:54)
--- NOTE | 2022-01-20 17:36 | Hospitalist Progress Note ---
Date of Service January 20, 2022 Assessment & Plan (1) Intractable pain: Plan: Intractable left hip pain Chronic pain due to malignant neoplastic disease: CT hip showed diffuse blastic metastases are again identified throughout the imaged portion of the left hip and pelvis. Pain management on board Fentanyl patch will remain at 37mcg/hr and Continue Oxycodone 10mg x 4 hours PRN He is scheduled for follow up with pain management office on 01/27 at 10:30 Rad Onc started therapy today Toradol is helping patient significantly and he is pleased Will switch to oral Ibuprofen to set up for dc home to enure this is effective. Continue standard treatment with apalutamide, Firmagon and Xgeva. Microscopic hematuria: night nurse notified provider about gross hematuria, however, the patient knows nothing of this and denies hematuria. Recommend close followup wtih his urologist or PCP for repeat UA and outpatient investigation as appropriate. Hypophosphatemia -replaced. Lovenox Full Code Dipso-to home in am. Elizabeth Stallings DO [facility] Hospitalist (2) Prostate cancer metastatic to bone: (3) Hip pain, acute: Admission and Anticipated Discharge Date Admission Date: January 18, 2022 Subjective 66 yo M with metastatic prostate cancer, presents with severe hip pain. Pain is now improved/controlled with current therapy Using Toradol and we discussed changing to oral version to go home on. XRT started today Ambulating around his baseline Tolerating PO No other issues at this time He wasn't pressing a second opinion at this time--would recommend this happen in the outpatient setting if desired. Review of Systems Review of Systems: All systems were reviewed and negative except as indicated in subjective above. Physical Exam Physical Exam: CONSTITUTIONAL: WNWD, vitals as above, generally well- appearing, NAD EYES: normal conjunctivae, no scleral icterus ENT: external ear and nose normal, MMM NECK: trachea midline, RESPIRATORY: clear to auscultation bilaterally, no crackles, rales or wheezes, normal respiratory effort CARDIOVASCULAR: regular rate and rhythm, S1 and 2 heard without murmurs, gallops or rubs, no JVD, no peripheral edema CHEST: inspection of chest was normal GASTROINTESTINAL: soft, nontender, ND, no guarding MUSCULOSKELETAL: strength 5/5 throughout, took him a while to get settled onto the side of the bed but he was able to do this independently taking his time. head is normocephalic and atraumatic, SKIN: warm and dry NEUROLOGIC: CN 2-12 grossly intact, no sensory deficit, normal cognition, normal speech, no tremor PSYCHIATRIC: alert cooperative and oriented to person, place and time. Results & Data Results & Data ([facility]) Vital Signs (Past 12 Hours) Vital Signs Temp Pulse Resp BP Pulse Ox 01/20/22 15:33 36.8 C 82 20 115/74 97 01/20/22 06:46 37.2 C 82 18 105/68 98 Laboratory Results Short CBC 01/20/22 Range/Units 07:24 WBC 5.02 (4.8-10.8) K/uL Hgb 11.5 L (14.0-18.0) g/dL Hct 33.9 L (42-52) % Plt Count 190 (130-400) K/uL Medications Administered Current Inpatient Medications Acetaminophen (Acetaminophen 325 Mg Tab) 650 mg PO Q6H PRN PRN Reason: Fever/pain Stop: 02/17/22 09:22 Alprazolam (Alprazolam 0.5 Mg Tablet) 0.5 mg PO HS PRN PRN Reason: insomnia Stop: 02/17/22 09:22 Apalutamide (Apalutamide 60 Mg Tablet) 240 mg PO DAILY REPLACED BY [facility] Stop: 02/17/22 11:59 Last Admin: 01/20/22 09:28 Dose: 240 mg Documented by: Diclofenac Sodium (Diclofenac Sod 1% Gel 100 Gm Tube) 2 gm EXT QID LINA Stop: 02/17/22 09:22 Last Admin: 01/20/22 17:23 Dose: 2 gm Documented by: Enoxaparin Sodium (Enoxaparin Inj 40 Mg/0.4 Ml Syr) 40 mg SQ QAM LINA Stop: 02/17/22 09:22 Last Admin: 01/18/22 12:11 Dose: 40 mg Documented by: Fentanyl (Fentanyl 12 Mcg/Hr Tdsy) 12 mcg TD Q3D LINA Stop: 02/01/22 17:59 Last Admin: 01/18/22 18:31 Dose: 12 mcg Documented by: Fentanyl (Fentanyl 25 Mcg/Hr Tdsy) 25 mcg TD Q72H LINA Stop: 02/01/22 17:59 Last Admin: 01/18/22 18:32 Dose: 25 mcg Documented by: Promethazine HCl 12.5 mg/ (Sodium Chloride) 50.5 mls @ 202 mls/hr IV Q6H PRN PRN Reason: Nausea And Vomiting Stop: 02/17/22 09:22 Ketorolac Tromethamine (Ketorolac Tromethamine 15 Mg/Ml Vial) 15 mg IV Q6H PRN PRN Reason: Pain Stop: 01/23/22 07:03 Last Admin: 01/20/22 12:11 Dose: 15 mg Documented by: Lidocaine (Lidocaine 5% 1 Patch) 1 patch TD QAM REPLACED BY [facility] Stop: 02/18/22 08:59 Last Admin: 01/20/22 09:28 Dose: 1 patch Documented by: Lorazepam (Lorazepam 2 Mg/1 Ml Vial) 0.25 mg IV Q4H PRN; Protocol PRN Reason: Anxiety Stop: 02/17/22 07:03 Methylnaltrexone Alexander (Methylnaltrexone Alexander 12 Mg/0.6 Ml Vial) 12 mg SQ Q2D PRN PRN Reason: constipation Stop: 02/17/22 17:59 Miscellaneous (Fentanyl Patch Remove & Waste) 1 ea N/A Q3D REPLACED BY [facility] Stop: 02/20/22 17:59 Miscellaneous (Check Fentanyl 25mcg Patch Placement) 1 ea N/A QS REPLACED BY [facility] Stop: 02/18/22 00:00 Last Admin: 01/20/22 17:24 Dose: 1 ea Documented by: Miscellaneous (Remove Lidoderm Patch) 1 ea N/A DAILY@2100 REPLACED BY [facility] Stop: 02/18/22 20:59 Last Admin: 01/19/22 20:19 Dose: 1 ea Documented by: Miscellaneous (Check Fentanyl 12 Mcg Patch Placement) 1 ea N/A QS REPLACED BY [facility] Stop: 02/18/22 00:00 Last Admin: 01/20/22 17:24 Dose: 1 ea Documented by: Miscellaneous (Fentanyl Patch Remove & Waste) 1 ea N/A Q3D REPLACED BY [facility] Stop: 02/17/22 17:59 Last Admin: 01/18/22 18:32 Dose: 1 ea Documented by: Multivitamins/Minerals (Calcium 600mg + Vit D 400 Iu Tab) 2 tab PO QID REPLACED BY [facility]; Protocol Stop: 02/17/22 12:59 Last Admin: 01/20/22 17:24 Dose: 2 tab Documented by: Naloxone HCl (Naloxone Hcl 0.4 Mg/1 Ml Vial/Carp) 0.1 mg IV Q5M PRN; Protocol PRN Reason: Oversedation/Resp Depression Stop: 02/01/22 17:48 Oxycodone HCl (Oxycodone Hcl Ir 5 Mg Tab (Immediate Release)) 10 mg PO Q4H PRN PRN Reason: Unknown Stop: 02/01/22 07:56 Pantoprazole Sodium (Pantoprazole 40 Mg Tab) 40 mg PO DAILY REPLACED BY [facility]; Protocol Stop: 02/18/22 08:59 Last Admin: 01/20/22 09:28 Dose: 40 mg Documented by: Polyethylene Glycol (Polyethylene (Miralax) 17 Gm Pack) 17 gm PO DAILY PRN PRN Reason: Constipation Stop: 02/17/22 09:22 Polyethylene Glycol (Polyethylene (Miralax) 17 Gm Pack) 17 gm PO DAILY REPLACED BY [facility] Stop: 02/18/22 08:59 Last Admin: 01/20/22 09:28 Dose: 17 gm Documented by: Pravastatin Sodium (Pravastatin Sod 20 Mg Tab) 20 mg PO DAILY@2100 REPLACED BY [facility] Stop: 02/17/22 20:59 Last Admin: 01/19/22 20:21 Dose: 20 mg Documented by: Senna/Docusate Sodium (Docusate Sodium/Senna 50/8.6mg Tab) 1 tab PO BID REPLACED BY [facility] Stop: 02/17/22 07:04 Last Admin: 01/20/22 09:28 Dose: 1 tab Documented by: Simethicone (Simethicone 80 Mg Chew) 80 mg PO Q6H PRN PRN Reason: Gas or Constipation Stop: 02/19/22 16:53 (1) Hip pain, acute Laterality: left Qualified Code(s): M25.552 - Pain in left hip
[2022-01-20] MEDS: PRAVASTATIN SOD 20 MG TAB PO SCH (21:37)
[2022-01-20] MEDS: IBUPROFEN 800 MG TAB PO PRN (21:38)
[2022-01-21] MEDS: CHECK FENTANYL 12 MCG SCH ×3 (00:11→16:26)
[2022-01-21] MEDS: CHECK FENTANYL 25 MCG SCH ×3 (00:12→16:26)
[2022-01-21 06:30] LABS: Hematocrit (blood only) 39.3 % (42-52); Hemoglobin 12.9 g/dL (14.0-18.0); Mean Corpuscular Hemoglobin 28.5 pg (25-34); Mean Corpuscular Hgb Conc 32.8 g/dL (32-36); Mean Corpuscular Volume 86.9 fL (80-100); Mean Platelet Volume 9.2 fL (7.4-10.4); Platelet Count 231 K/uL (130-400); RDW Coefficient of Variation 13.8 % (11.5-14.5); RDW Standard Deviation 43.8 fL (36.4-46.3); Red Blood Count 4.52 M/uL (4.7-6.1); White Blood Count 6.06 K/uL (4.8-10.8)
[2022-01-21 06:44] LABS: BUN Creatinine Ratio 15.6 (10-20); Calcium 8.6 mg/dl (8.5-10.1); Creatinine Clr Calc Pharmacy 115.6 ml/min; Est GFR (African American) 117.4 ml/min; Est GFR (Non-African American) 101.3 ml/min; Potassium 4.2 mmol/L (3.5-5.1)
[2022-01-21 06:46] LABS: Magnesium 2.3 mg/dl (1.7-2.4); Phosphorus 1.1 mg/dl (2.5-4.9)
[2022-01-21] MEDS: LIDOCAINE 5% 1 PATCH TD SCH (08:43)
[2022-01-21] MEDS: APALUTAMIDE 60 MG PO SCH (08:43)
[2022-01-21] MEDS: DOCUSATE SODIUM/SENNA 50/8.6MG TAB PO SCH (08:43)
[2022-01-21] MEDS: DICLOFENAC SOD 1% GEL 100 GM TUBE EXT SCH ×3 (08:43→16:25)
[2022-01-21] MEDS: POLYETHYLENE (MIRALAX) 17 GM PACK PO SCH (08:43)
[2022-01-21] MEDS: CALCIUM 600MG + VIT D 400 IU TAB PO SCH ×3 (08:44→16:25)
[2022-01-21] MEDS: PANTOprazole 40 MG TAB PO SCH (08:44)
[2022-01-21] MEDS: IBUPROFEN 800 MG TAB PO PRN (11:35)
--- NOTE | 2022-01-21 15:52 | Discharge Summary ---
Date of Service January 21, 2022 Admission HPI Per Admitting Provider History obtained from patient and records. Medical history significant for metastatic prostate cancer, chronic cancer pain on Fentanyl patch, hyperlipidemia, chronic anemia (baseline hemoglobin 12-13). Last confinement November 2020 for generalized weakness. Patient found to have prostate CA with widespread mets to the lung abdomen and bones. Patient discharged on Casodex. Patient later on switched to apalutamide. ADT treatment with Firmagon later given with Xgeva given every month. Patient referred to [facility] Pain Management 2 weeks ago for cancer pain. Patient suffering from pelvic pain more on the left hip worse with motion. Outpatient CT abdomen pelvis from last month showed increased rectal involvement of prostate tumor. Right iliac lymphadenopathy. Small residual left iliac lymph nodes. Progressive diffuse osseous mets with new soft tissue involvement in the posterior upper left pelvis and new small mass adjacent to left psoas muscle. Fentanyl patch initiated by provider. Additional recommendations to continue breakthrough Oxy IR with dosage adjustment to 10 mg every 6 hours as needed for breakthrough pain. Outpatient bone scan few days ago showed diffuse intense uptake throughout the axial and appendicular spine. Worsening left hip pain noted the last week. No fever, some chills. No trauma/fall. No chest pain, no SOB. Patient with constipation symptoms without abdominal pain/nausea, vomiting. Patient consulted ER for intractable left hip pain. 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[employer] Principal Diagnosis 59 Discharge Data Allergies Allergy/AdvReac Type Severity Reaction Status Date / Time No Known Allergies Allergy Mild Verified 01/18/22 06:16 Consultations 01/18/22 07:04 Consult Pain Management Routine 01/19/22 07:30 Consult Radiation Oncology Routine 01/19/22 12:25 Consult Oncology Routine Ordered Studies 01/18/22 06:55 CT hip LT w con Stat 01/19/22 10:30 CT guide rad therapy pelvis Routine Hospital Course (1) Intractable pain: Intractable left hip pain Chronic pain due to malignant neoplastic disease: CT hip showed diffuse blastic metastases are again identified throughout the imaged portion of the left hip and pelvis. Pain management on board Fentanyl patch will remain at 37mcg/hr and Continue Oxycodone 10mg x 4 hours PRN He is scheduled for follow up with pain management office on 01/27 at 10:30 Rad Onc started therapy today Toradol is helping patient significantly and he is pleased Will switch to oral Ibuprofen to set up for dc home to enure this is effective. Continue standard treatment with apalutamide, Firmagon and Xgeva. Microscopic hematuria: night nurse notified provider about gross hematuria, however, the patient knows nothing of this and denies hematuria. Recommend close followup wtih his urologist or PCP for repeat UA and outpatient investigation as appropriate. Hypophosphatemia -replaced. Lovenox Full Code Dipso-to home in am. Elizabeth Stallings DO [facility] Hospitalist (2) Prostate cancer metastatic to bone: (3) Hip pain, acute: Discharge Plan Discharge Items Patient Disposition: Home - Self-Care Reason For Visit: LOW PHOS, INTRACTABLE L HIP PAIN Discharge Diagnosis: Left hip pain 2/2 metastatic prostate cancer Hypophosphatemia Microscopic hematuria Condition on Discharge: Good Activity: Resume your previous activity Non-emergency contact: Primary Care Provider and Urologist Call non-emergency contact if: you have any medication questions, your pain is not controlled, your pain is worsening, your pain is unusual for you, your pain is concerning for you and you have a fever Follow-up/Referrals: Pramod Whipple DO [Primary Care Provider] - Diet: Regular Addtl Attending Provider Instructions: Please take all medications as instructed on discharge list below. Please note that your phosphate level was low during this hospital stay and you should continue with replacement with a repeat check of your phosphorus next week. You have been provided an increased dose of fentanyl patch to change every 72 hours. Refills will need to come from your primary care doctor. You can obtain these on follow-up. Please follow-up with pain management as instructed later this month. For now ibuprofen is being given to you for breakthrough pain and you have oxycodone as well to use. Please continue with radiation treatments as discussed with Gricel[facility]z physician group radiation oncology. Your parathyroid hormone was elevated and vitamin D level was normal. Your calcium level was normal. This will need to be followed by your outpatient physician and discuss further on follow-up. You were found to have microscopic amounts of blood in your urine while hospitalized. This also should be followed up by your primary care provider and if persistent, additional work-up may be appropriate. It was a pleasure taking care of you! Please call if you have any questions or problems. You can reach a [facility] hospitalist on duty at [facility] 24 hours a day by calling [phone]. Take care of yourself. [facility] Pending Studies at Discharge: No Stand-Alone Forms: My [facility] Medications and DC Order Prescriptions: New fentanyl 37.5 mcg/hour patch 72 hour 1 patch transdermal Q72H Qty: 10 RF: 0 ibuprofen 800 mg tablet 800 mg PO Q8H PRN (Reason: pain) Qty: 30 RF: 0 Continued alprazolam [Xanax] 0.5 mg tablet 0.5 mg PO HS RF: 0 acetaminophen [Tylenol Extra Strength] 500 mg tablet 500 mg PO Q6H PRN (Reason: Unknown) RF: 0 diclofenac sodium 1 % gel 2 g topical QID RF: 0 apalutamide 60 mg tablet 240 mg PO DAILY RF: 0 potassium phosphate, monobasic 500 mg tablet,soluble 1,000 mg PO TID RF: 0 calcium carbonate-vitamin D3 600 mg-10 mcg (400 unit) tablet,chewable 2 tab PO QID RF: 0 oxycodone 15 mg tablet 15 mg PO Q6H PRN (Reason: Unknown) RF: 0 pravastatin 20 mg tablet 20 mg PO DAILY RF: 0 naloxone 4 mg/actuation spray,non-aerosol 1 spray intranasal Q3M PRN (Reason: opioid overdose) Qty: 2 RF: 0 omeprazole 20 mg capsule,delayed release(DR/EC) 20 mg PO DAILY RF: 0 Erleada 60 mg tablet 60 mg PO DAILY RF: 0 Discontinued fentanyl 25 mcg/hr patch 72 hour 1 patch transdermal Q72H Qty: 10 RF: 0 Discharge Orders: Discharge Order (Routine); Ordered 01/21/22 Ordered By: Elizabeth Nicholas/Other Patient Handouts: A1C Admission Data Admit Date/Time: 01/18/22 07:00 Attending Provider: Elizabeth Stallings Admit Provider: Christian Engle Primary Care Provider: Pramod Whipple Other Providers: Rachel Portillo ; Kira Lam ; Shayy Granado
[2022-01-21] MEDS: fentaNYL 12 MCG/HR TDSY TD SCH (17:52)
[2022-01-21] MEDS: fentaNYL 25 MCG/HR TDSY TD SCH (17:52)
== END 2022-01-21 18:23 | disposition home or self-care (01) | DRG 544 ==
LOC: ED 03:31 → 3E 07:00 → SUATTDRO 07:00 → 3E 08:19

== ENCOUNTER 2022-03-04 22:26 | Inpatient (IN) ==
[2022-03-04] MEDS ORDERED: SODIUM CHLORIDE 0.9% 1000ML 500 ML IV ONE (23:37)
[2022-03-04] MEDS ORDERED: HYDROmorphone INJ 0.5 MG/0.5 ML SYR IV STA (23:39)
[2022-03-04] MEDS ORDERED: ONDANSETRON INJ 2 MG/ML 2 ML VIAL IV STA (23:40)
[2022-03-04] MEDS ORDERED: FAMOTIDINE 20 MG in SYRINGE 3 ML IV SCH (23:45)
[2022-03-04 23:46] LABS: Albumin Globulin Ratio 1.3 (0.9-2); Albumin Level 3.7 gm/dl (3.4-5.0); Bilirubin,Total 0.6 mg/dl (0.2-1.0); Creatinine Clr Calc Pharmacy 101.8 ml/min; Est GFR (Non-African American) 94.9 ml/min; Globulin 2.9 gm/dl (2.5-4.0); Potassium 3.5 mmol/L (3.5-5.1); Total Protein 6.6 gm/dl (6.0-8.3)
[2022-03-05 00:25] LABS: Hematocrit (blood only) 27.8 % (40.1-51.0); Hemoglobin 8.9 g/dl (14.0-18.0); Mean Corpuscular Hemoglobin 28.1 pg (25.0-34.0); Mean Corpuscular Volume 87.7 fL (80.0-100.0); Mean Platelet Volume 10.2 fL (9.4-12.4); Nucleated RBC # (auto) 0.49 K/uL (0-0); Nucleated RBC % (auto) 10.2 %; Platelet Count 75 K/uL (130-400); RDW Coefficient of Variation 16.9 % (11.5-14.5); RDW Standard Deviation 51.3 fL (36.4-46.3); Red Blood Count 3.17 M/uL (4.63-6.08)
[2022-03-05 00:27] LABS: Basophils # (auto) 0.08 K/uL (0-0.2); Basophils % (auto) 1.7 %; Eosinophils # (auto) 0.03 K/uL (0-0.50); Eosinophils % (auto) 0.6 %; Immature Granulocytes % (auto) 8.3 %; Lymphocytes # (auto) 1.71 K/uL (1.2-3.4); Lymphocytes % (auto) 35.6 %; Monocytes # (auto) 0.81 K/uL (0.24-0.82); Monocytes % (auto) 16.9 %; Neutrophils # (auto) 1.77 K/uL (1.4-6.5); Neutrophils % (auto) 36.9 %; Platelet Estimate Decreased (Normal); Polychromasia 1+; Tear Drop Cells 1+
[2022-03-05] MEDS ORDERED: OPTIRAY 320 125ml IV ONE (00:30)
[2022-03-05] MEDS: SODIUM CHLORIDE 0.9% 1000ML 1,000 ML IV SCH ×2 (00:31→09:10)
[2022-03-05] MEDS ORDERED: SODIUM CHLORIDE 0.9% 250 ML IV PRN (00:40)
--- NOTE | 2022-03-05 00:40 | Emergency Department Note ---
Impression & Plan Metastatic disease, Prostate cancer, Pleural effusion, Metastatic cancer to lung, Goals of care, counseling/discussion ED Provider Note CHIEF COMPLAINT: Shortness of breath HISTORY OF PRESENT ILLNESS: This 66-year-old male patient presents to the emergency department with complaints of worsening shortness of breath. The patient has a history of metastatic prostate cancer states he has been using a fentanyl patch and frequent ibuprofen for pain control. He is concerned that he may have "ruined his stomach" using ibuprofen. He does try to eat something prior to taking his medications however his appetite has been poor recently. He denies any blood in his stools. Patient does have difficulty lying flat. He admits to a cough that has been productive. The patient lives at home with his brother who is helping care for him. REVIEW OF SYSTEMS: A review of systems was performed with positives and pertinent negatives listed in the history of present illness. 10 systems were reviewed and are otherwise negative. ALLERGIES: see below MEDICATIONS: see below PMH: see below SOCIAL HISTORY: see below DDx:Reactive airway disease, pneumonia, pneumothorax, COPD, CHF, infections, cardiac ischemia, pulmonary embolism, musculoskeletal, gastrointestinal, as well as other pathologies. PHYSICAL EXAM: Vital signs reviewed. General: Chronically ill-appearing 66-year-old male, in no significant distress. HEENT: No scleral icterus, pale conjunctiva, PERRLA, neck supple. Moist mucous membranes Cardiovascular: Regular rate and rhythm, no extra sounds. Pulmonary: Clear to auscultation bilaterally with blunted breath sounds at the bases. Increased work of breathing Abdomen: Soft, nontender, nondistended, positive bowel sounds. Musculoskeletal: Atraumatic, no peripheral edema. Soft tissue mass, nontender, appreciated to the left sternal border. Neurologic: Patient awake alert and oriented x 3, speech is clear GI: Positive external rectal hemorrhoids with thin brown stools, guaiac negative Skin: Warm, dry, no rash EMERGENCY DEPARTMENT COURSE/MDM: This patient was evaluated and appeared to be in no significant distress. IV access was obtained and laboratory work was drawn. The patient was placed on the campus monitor and noted to be in a sinus tachycardia. The patient was hydrated with normal saline solution. The patient was medicated with 20 mg of IV Pepcid. He was given 0.5 mg of IV Dilaudid for ongoing pain. Hemoccult stool was performed and is negative. The patient was type and crossed for 2 units of PRBCs to hold. Hemoglobin noted to be 8.9. CT imaging of the chest was performed and is negative for PE. The patient does have progressive metastatic disease with a moderate left pleural effusion. Patient did receive IV hydration. He seemed to be much improved after the pain medication. He was evaluated by the hospitalist service for admission and further management. Patient was aware of the plan and agreed. MONITORING: An order for cardiac monitoring was placed and the patient is noted to be in a tachycardia at 112 beats per minute. RADIOLOGY: Preliminary Findings Only See Final Report For Complete Findings CT CHEST With Contrast: Comparison chest CT 11/21/2020 No pulmonary embolism. Markedly progressed metastatic disease. Numerous pulmonary nodules and masses bilaterally. Multiple left hilar lesions compressing cause mass-effect on the left pulmonary arteries. New soft tissue implants within the left parasternal region and right sixth rib anteriorly. Pleural-based lesions in the left lung resulting in a moderate left pleural effusion. Extensive osseous metastatic disease. Airspace opacity at the right apex may represent a metastatic lesion versus infection. Correlate clinically. Radiologist: Domenico Ortiz MD Study ready at 02:42 and initial results transmitted at 03:00 EKG: Sinus tachycardia with PACs at 123 bpm. Low voltage QRS. Nonspecific T wave abnormalities. QTc is 412. Previous dated January 18, 2022, PACs are now present, T wave inversions are evident in the anterior leads. DISPOSITION: Admission Past Med/Surg History Medical History Adult hypophosphatasia Degenerative disc disease Goals of care, counseling/discussion Hearing loss Hip pain, acute Hyperlipidemia Intractable pain Lumbar spinal stenosis Mass of colon with enlarged lymph nodes Metastatic disease Pleural effusion Prostate cancer Prostate cancer metastatic to bone Renal colic on right side Tinnitus Surgical History History of appendectomy History of colonoscopy History of tonsillectomy Family History Other Cancer Colorectal cancer Heart disease Lung disease Social History Smoking Status: Never smoker Second Hand Exposure: No; Hx Alcohol Use: No Hx Substance Use: No Preferred Language: Samoan Communication Ability: Effective Food And Beverage Service Manager Required: No Beliefs That Will Affect Care: None marital status: Single Current Living Situation: Family Feels Safe at Home: Yes Assistive Devices: Cane Allergies Allergies Allergy/AdvReac Type Severity Reaction Status Date / Time No Known Allergies Allergy Mild Verified 03/05/22 03:10 Home Meds Home Medications Medication Instructions Recorded Confirmed acetaminophen 500 mg tablet 500 mg PO Q6H PRN Unknown 01/06/22 03/05/22 (Tylenol Extra Strength) alprazolam 0.5 mg tablet (Xanax) 0.5 mg PO HS PRN Anxiety 01/06/22 03/05/22 apalutamide 60 mg tablet 240 mg PO DAILY 01/06/22 03/05/22 calcium carbonate 600 mg-vitamin 2 tab PO QID 01/06/22 03/05/22 D3 10 mcg (400 unit) chewable tablet potassium phosphate, monobasic 500 1,000 mg PO TID 01/06/22 03/05/22 mg soluble tablet pravastatin 20 mg tablet 20 mg PO DAILY 01/06/22 03/05/22 omeprazole 20 mg capsule,delayed 20 mg PO DAILY 01/18/22 03/05/22 release oxycodone 10 mg tablet 10 mg PO QID PRN Pain 03/05/22 03/05/22 paroxetine HCl 10 mg tablet 10 mg PO QAM 03/05/22 03/05/22 Previous Rx's Medication Instructions Recorded naloxone 4 mg/actuation nasal spray 1 spray intranasal Q3M PRN opioid 01/06/22 overdose #2 ea ibuprofen 800 mg tablet 800 mg PO Q8H PRN pain #30 tabs 02/01/22 prednisone 20 mg tablet 40 mg PO .COMPLEX #40 tabs 02/01/22 fentanyl 37.5 mcg/hour transdermal 1 patch transdermal Q72H #10 ea 02/16/22 patch Results & Data (ED) Vital Signs Vital Signs - 24 hr 03/04/22 22:29 03/04/22 22:29 03/04/22 22:38 Temperature 36.4 C L Temperature Source Skin Pulse Rate 135 H Pulse Rate [Apical] Respiratory Rate 40 H Respiratory Effort / Characteristics Labored Retracting Short of Breath SOB on Exertion Respiratory Depth Retractive Respiratory Pattern Tachypnea Tachypnea Blood Pressure 122/75 Blood Pressure [Left Arm] Blood Pressure Mean 90 Blood Pressure Mean [Left Arm] Pulse Oximetry 97 98 Oxygen Delivery Method Room Air Room Air Room Air Sepsis Recent Fever Within 48 Hours No Sepsis New/Unexplained Change in Mental Status N/A Sepsis Action Taken by Nursing No Action Required 03/04/22 23:00 03/04/22 23:50 03/04/22 23:51 Temperature Temperature Source Pulse Rate 112 H 111 H Pulse Rate [Apical] Respiratory Rate 26 H 18 Respiratory Effort / Characteristics Respiratory Depth Respiratory Pattern Blood Pressure Blood Pressure [Left Arm] 102/68 Blood Pressure Mean Blood Pressure Mean [Left Arm] 79 Pulse Oximetry 97 Oxygen Delivery Method Room Air Sepsis Recent Fever Within 48 Hours Sepsis New/Unexplained Change in Mental Status Sepsis Action Taken by Nursing 03/05/22 01:00 03/05/22 02:00 03/05/22 03:00 Temperature Temperature Source Pulse Rate 107 H 108 H Pulse Rate [Apical] 105 H Respiratory Rate 19 20 16 Respiratory Effort / Characteristics Respiratory Depth Respiratory Pattern Blood Pressure 110/70 106/74 Blood Pressure [Left Arm] 119/75 Blood Pressure Mean 83 84 Blood Pressure Mean [Left Arm] 89 Pulse Oximetry 94 94 94 Oxygen Delivery Method Room Air Room Air Room Air Sepsis Recent Fever Within 48 Hours Sepsis New/Unexplained Change in Mental Status Sepsis Action Taken by Nursing 03/05/22 04:00 Temperature Temperature Source Pulse Rate Pulse Rate [Apical] 101 H Respiratory Rate 16 Respiratory Effort / Characteristics Respiratory Depth Respiratory Pattern Blood Pressure Blood Pressure [Left Arm] 107/70 Blood Pressure Mean Blood Pressure Mean [Left Arm] 82 Pulse Oximetry 95 Oxygen Delivery Method Room Air Sepsis Recent Fever Within 48 Hours Sepsis New/Unexplained Change in Mental Status Sepsis Action Taken by [facility] Medications Current Medication List: was personally reviewed by me Laboratory Data Attestation: I reviewed the patient's lab results. Result diagrams: 03/05/22 16:09 03/04/22 22:45 Lab Results 03/04/22 03/04/22 03/04/22 Range/Units 22:45 22:45 23:47 WBC 4.80 (4.8-10.8) K/ul RBC 3.17 L (4.63-6.08) M/uL Hgb 8.9 L (14.0-18.0) g/dl Hct 27.8 L (40.1-51.0) % MCV 87.7 (80.0-100.0) fL MCH 28.1 (25.0-34.0) pg MCHC 32.0 (32.0-36.0) g/dL RDW Std Deviation 51.3 H (36.4-46.3) fL RDW Coeff of [place] 16.9 H (11.5-14.5) % Plt Count 75 L (130-400) K/uL MPV 10.2 (9.4-12.4) fL Immature Gran % (Auto) 8.3 % Neut % (Auto) 36.9 % Lymph % (Auto) 35.6 % [place] % (Auto) 16.9 % Eos % (Auto) 0.6 % Baso % (Auto) 1.7 % Neut # (Auto) 1.77 (1.4-6.5) K/uL Lymph # (Auto) 1.71 (1.2-3.4) K/uL [place] # (Auto) 0.81 (0.24-0.82) K/uL Eos # (Auto) 0.03 (0-0.50) K/uL Baso # (Auto) 0.08 (0-0.2) K/uL Immature Gran # (Auto) 0.40 H (0.00-0.02) K/uL Absolute Nucleated RBC 0.49 H (0-0) K/uL Nucleated RBC % (auto) 10.2 % Platelet Estimate Decreased L (Normal) Polychromasia 1+ Tear Drop Cells 1+ Sodium 134 L (136-145) mmol/L Potassium 3.5 (3.5-5.1) mmol/L Chloride 103 (98-107) mmol/L Carbon Dioxide 21 (21-32) mmol/L Anion Gap 10 (3-11) BUN 15 (6-23) mg/dl Creatinine 0.75 (0.6-1.4) mg/dl Est Cr Clr Drug Dosing 101.8 ml/min Est GFR ( Amer) 110.0 ml/min Est GFR (Non-Af Amer) 94.9 ml/min BUN/Creatinine Ratio 20.0 (10-20) Glucose 105 H (70-99(Fasting)) mg/dl Calcium 8.0 L (8.5-10.1) mg/dl Total Bilirubin 0.6 (0.2-1.0) mg/dl AST 29 (13-39) U/L ALT 7 (7-52) U/L Alkaline Phosphatase 296 H (34-104) U/L Total Protein 6.6 (6.0-8.3) gm/dl Albumin 3.7 (3.4-5.0) gm/dl Globulin 2.9 (2.5-4.0) gm/dl Albumin/Globulin Ratio 1.3 (0.9-2) Urine Color Urine Appearance (Clear) Urine pH (4.5-7.5) Ur Specific Lowgap (1.000-1.030) Urine Protein (Negative) Urine Glucose (UA) (Negative) Urine Ketones (Negative) Urine Blood (Negative) Urine Nitrite (Negative) Urine Bilirubin (Negative) Urine Urobilinogen (Negative) Ur Leukocyte Esterase (Negative) Urine WBC (Auto) (0-5) /hpf Urine RBC (Auto) (0-4) /hpf U Hyaline Cast (Auto) (0-5) /lpf U Epithel Cells (Auto) (0-5) /lpf Urine Bacteria (Auto) (Negative) SARS-CoV-2, RNA, NAAT NEGATIVE (NEGATIVE) Blood Type Antibody Screen Crossmatch 03/05/22 03/05/22 Range/Units 01:03 02:40 WBC (4.8-10.8) K/ul RBC (4.63-6.08) M/uL Hgb (14.0-18.0) g/dl Hct (40.1-51.0) % MCV (80.0-100.0) fL MCH (25.0-34.0) pg MCHC (32.0-36.0) g/dL RDW Std Deviation (36.4-46.3) fL RDW Coeff of [place] (11.5-14.5) % Plt Count (130-400) K/uL MPV (9.4-12.4) fL Immature Gran % (Auto) % Neut % (Auto) % Lymph % (Auto) % [place] % (Auto) % Eos % (Auto) % Baso % (Auto) % Neut # (Auto) (1.4-6.5) K/uL Lymph # (Auto) (1.2-3.4) K/uL [place] # (Auto) (0.24-0.82) K/uL Eos # (Auto) (0-0.50) K/uL Baso # (Auto) (0-0.2) K/uL Immature Gran # (Auto) (0.00-0.02) K/uL Absolute Nucleated RBC (0-0) K/uL Nucleated RBC % (auto) % Platelet Estimate (Normal) Polychromasia Tear Drop Cells Sodium (136-145) mmol/L Potassium (3.5-5.1) mmol/L Chloride (98-107) mmol/L Carbon Dioxide (21-32) mmol/L Anion Gap (3-11) BUN (6-23) mg/dl Creatinine (0.6-1.4) mg/dl Est Cr Clr Drug Dosing ml/min Est GFR ( Amer) ml/min Est GFR (Non-Af Amer) ml/min BUN/Creatinine Ratio (10-20) Glucose (70-99(Fasting)) mg/dl Calcium (8.5-10.1) mg/dl Total Bilirubin (0.2-1.0) mg/dl AST (13-39) U/L ALT (7-52) U/L Alkaline Phosphatase (34-104) U/L Total Protein (6.0-8.3) gm/dl Albumin (3.4-5.0) gm/dl Globulin (2.5-4.0) gm/dl Albumin/Globulin Ratio (0.9-2) Urine Color Yellow Urine Appearance Clear (Clear) Urine pH 6.5 (4.5-7.5) Ur Specific Lowgap > 1.045 H (1.000-1.030) Urine Protein Trace H (Negative) Urine Glucose (UA) Negative (Negative) Urine Ketones Negative (Negative) Urine Blood Negative (Negative) Urine Nitrite Negative (Negative) Urine Bilirubin Negative (Negative) Urine Urobilinogen Negative (Negative) Ur Leukocyte Esterase Negative (Negative) Urine WBC (Auto) 1-5 (0-5) /hpf Urine RBC (Auto) 0-4 (0-4) /hpf U Hyaline Cast (Auto) 1-5 (0-5) /lpf U Epithel Cells (Auto) 5-10 H (0-5) /lpf Urine Bacteria (Auto) Negative (Negative) SARS-CoV-2, RNA, NAAT (NEGATIVE) Blood Type O Positive Antibody Screen NEGATIVE Crossmatch See Detail Administered Medications Apalutamide (Apalutamide 60 Mg Tablet) 240 mg PO DAILY [facility]; Protocol Stop: 04/04/22 14:59 Last Admin: 03/05/22 15:47 Dose: 240 mg Documented By: SARAH Melatonin (Melatonin 3 Mg Tab) 3 mg PO HS PRN PRN Reason: Sleep Stop: 04/04/22 20:15 Last Admin: 03/05/22 21:09 Dose: 3 mg Documented By: ELIZABETH Freire (Check Fentanyl Patch Placement) 1 each N/A QS LINA Stop: 04/04/22 15:59 Last Admin: 03/06/22 00:49 Dose: 1 each Documented By: Admin: 03/05/22 15:48 Dose: 1 each Documented By: SARAH Freire (Check Fentanyl Patch Placement) 1 each N/A QS LINA Stop: 04/04/22 15:59 Last Admin: 03/06/22 00:49 Dose: 1 each Documented By: Admin: 03/05/22 15:48 Dose: 1 each Documented By: SARAH Multivitamins/Minerals (Calcium 600mg + Vit D 400 Iu Tab) 2 tab PO QID LINA Stop: 04/04/22 09:14 Last Admin: 03/05/22 21:10 Dose: 2 tab Documented By: Admin: 03/05/22 16:02 Dose: 2 tab Documented By: Admin: 03/05/22 10:15 Dose: Not Given Documented By: Admin: 03/05/22 10:12 Dose: 2 tab Documented By: SARAH Pantoprazole Sodium (Pantoprazole 40 Mg Tab) 40 mg PO DAILY LINA; Protocol Stop: 04/04/22 09:14 Last Admin: 03/05/22 09:58 Dose: 40 mg Documented By: SARAH Paroxetine HCl (Paroxetine Hcl 10 Mg Tab) 10 mg PO QAM LINA Stop: 04/04/22 08:59 Last Admin: 03/05/22 09:58 Dose: 10 mg Documented By: SARAH Polyethylene Glycol (Polyethylene (Miralax) 17 Gm Pack) 17 gm PO DAILY PRN PRN Reason: Constipation Stop: 04/04/22 08:55 Last Admin: 03/05/22 16:02 Dose: 17 gm Documented By: SARAH Potassium Phosphate (Pot Phosphate Monobasic W/ Sod Tab) 2 tab PO TID LINA Stop: 04/04/22 09:14 Last Admin: 03/05/22 21:10 Dose: 2 tab Documented By: Admin: 03/05/22 10:15 Dose: Not Given Documented By: Admin: 03/05/22 09:57 Dose: 2 tab Documented By: SARAH Pravastatin Sodium (Pravastatin Sod 20 Mg Tab) 20 mg PO DAILY LINA Stop: 04/04/22 08:59 Last Admin: 03/05/22 10:12 Dose: 20 mg Documented By: SARAH Discontinued Medications Hydromorphone HCl (Hydromorphone Inj 0.5 Mg/0.5 Ml Syr) 0.5 mg IV NOW STA Stop: 03/04/22 23:40 Last Admin: 03/04/22 23:49 Dose: 0.5 mg Documented By: KENNY Sodium Chloride (Nss 1000ml) 500 mls @ 999 mls/hr IV .Q31M ONE Stop: 03/05/22 00:07 Last Infusion: 03/05/22 00:20 Dose: 0 mls/hr Documented By: Admin: 03/04/22 23:47 Dose: 999 mls/hr Documented By: KENNY Sodium Chloride (Nss 1000ml) 1,000 mls @ 125 mls/hr IV .Q8H LINA Stop: 04/03/22 23:44 Last Admin: 03/05/22 09:10 Dose: Not Given Documented By: Infusion: 03/05/22 08:06 Dose: 0 mls/hr Documented By: Admin: 03/05/22 00:31 Dose: 125 mls/hr Documented By: KENNY Albumin Human (Albumin 5%) 250 mls @ 500 mls/hr IV ONE ONE Stop: 03/05/22 15:47 Last Admin: 03/05/22 15:36 Dose: Not Given Documented By: SARAH Albumin Human (Albumin 5%) 250 mls @ 500 mls/hr IV ONE ONE Stop: 03/05/22 15:47 Last Admin: 03/05/22 15:37 Dose: Not Given Documented By: SARAH Ioversol (Optiray 320 125ml) 120 ml IV ONCE ONE Stop: 03/05/22 00:31 Last Admin: 03/05/22 00:21 Dose: 120 ml Documented By: SALOMÓN Miscellaneous (*Apalutamide*Order Awaiting Action) 1 each N/A QS LINA Stop: 04/04/22 09:59 Last Admin: 03/05/22 10:08 Dose: Not Given Documented By: SARAH Ondansetron HCl (Ondansetron Inj 2 Mg/Ml 2 Ml Vial) 4 mg IV NOW STA Stop: 03/04/22 23:41 Last Admin: 03/04/22 23:48 Dose: 4 mg Documented By: KENNY Blood Pressure Blood Pressure Findings: Normal blood pressure Blood Pressure Disposition: did not require urgent referral Discharge Plan Visit Data Chief Complaint: Shortness of Breath/Dyspnea Stated Complaint: TROUBLE BREATHING HAS PROSTATE CANCER ED Provider: Bianca Gardner Discharge Problem: Metastatic disease, Prostate cancer, Pleural effusion, Metastatic cancer to lung, Goals of care, counseling/discussion Patient Disposition: Admitted As Inpatient Discharge Instructions Interventions: ED Discharge Assessment Last Done: 03/05/22 08:02
[2022-03-05 03:01] LABS: Appearance Urine Clear (Clear); Bacteria Urine Automated Negative (Negative); Bilirubin Urine Negative (Negative); Blood Urine Negative (Negative); Color Urine Yellow; Glucose Urine UA Negative (Negative); Ketones Urine Negative (Negative); Leukocyte Esterase Urine Negative (Negative); Nitrite Urine Negative (Negative); Protein Urine Trace (Negative); RBC Urine Automated 0-4 /hpf (0-4); Specific Gravity Urine > 1.045 (1.000-1.030); Urobilinogen Urine Negative (Negative); pH Urine 6.5 (4.5-7.5)
--- NOTE | 2022-03-05 07:07 | History and Physical Report ---
DATE OF H and P:: 03/05/2022. CHIEF COMPLAINT: Shortness of breath. HISTORY OF PRESENT ILLNESS: A 66-year-old male with past medical history significant for hyperlipidemia, metastatic prostate cancer, multiple sites of bone metastases, subjective tinnitus, sensorineural hearing loss, bilateral left lumbar radiculopathy, anemia, lumbar stenosis, generalized anxiety disorder, who presents with shortness of breath. States since last few days he is getting short of breath and that is the reason he came to the hospital. Denies any chest pain. Has occasional cough with some phlegm. No fevers. Appetite is very poor. No difficulty swallowing. No nausea, no vomiting, no abdominal pain. Somewhat constipated, but denies any blood in the stools. Normal bladder movements. No swelling in the legs. Ambulating okay at home, but feeling weak. No headache, no dizziness, no blurred visions, no earache, no runny nose, no sore throat. Currently, resting comfortably and hemodynamically stable. Imaging studies with CT chest in the ER showed left pleural effusion and metastatic disease. ALLERGIES: No known drug allergies. PAST MEDICAL HISTORY: As mentioned above. PAST SURGICAL HISTORY: Colonoscopy, colonoscopy with biopsy, appendectomy, tonsillectomy, endoscopic ultrasound. MEDICATIONS: The patient is on Tylenol 500 mg p.o. q. 6 hours p.r.n., alprazolam 0.5 mg p.o. at bedtime p.r.n., apalutamide 240 mg p.o. daily, calcium plus vitamin D 2 tablets p.o. daily, fentanyl patch 37.5 mcg q.72 hours, ibuprofen 800 mg p.o. p.r.n., naloxone 1 spray intranasal q. 3 hours p.r.n. for opioid overdose, omeprazole 20 mg p.o. daily, oxycodone 10 mg p.o. q.i.d. p.r.n.,paroxetine 10 mg p.o. a.m., potassium phosphate monobasic 1000 mg p.o. t.i.d., pravastatin 20 mg p.o. daily, prednisone as directed. FAMILY HISTORY: Significant for mother had stomach, pancreatic and colon cancer, paternal grandfather had heart attack, paternal grandmother lung disorder, maternal grandmother Alzheimer disease. Maternal grandfather, emphysema. SOCIAL HISTORY: Currently lives with his brother. No smoking. Alcohol, social drinking. No drug use. REVIEW OF SYSTEMS: As per HPI. Rest of the review of systems is negative. PHYSICAL EXAMINATION: GENERAL: The patient is of moderate build, not in acute distress. VITAL SIGNS: Temperature 36.4, pulse 101, respiratory rate 16, blood pressure 97/62, oxygen 94% on room air. HEENT: Pupils equal, round and reactive to light. Oral mucosa dry. NECK: No JVD, no neck masses. CARDIOVASCULAR: S1 and S2 heard. Regular rate and rhythm. No murmur, no gallop. RESPIRATORY SYSTEM: Normal AP diameter. No accessory muscle use. No wheezing, no crackles. ABDOMEN: Soft, bowel sounds present, nontender, no distention. CENTRAL NERVOUS SYSTEM: Cranial nerves II through XII are grossly intact, nonfocal. EXTREMITIES: No edema, no erythema. LABORATORY DATA: WBC 4.8, hemoglobin 8.9, hematocrit 27.8, platelets 75. Sodium 134, potassium 3.5, chloride 103, bicarbonate 21, BUN 15, creatinine 0.7, serum glucose 105, calcium 8, total bilirubin 0.6, AST 29, ALT 7, alkaline phosphatase 296. Urinalysis negative. Rapid COVID test negative. IMAGING DATA: CT chest with contrast, no pulmonary embolism. Markedly progressive metastatic disease. Numerous pulmonary nodules and masses bilaterally, multiple left hilar lesions compressing, caused mass effect on the left pulmonary arteries. New soft tissue implants within the left parasternal region and right 6th rib anteriorly. Pleural based lesions in the left lung, resulting in moderate left pleural effusion, extensive osseous metastatic disease, airspace opacity in the right apex representing metastatic lesion versus infection. Correlate clinically. EKG: Sinus tachycardia with PACs at a rate of 123, nonspecific T-wave abnormalities. ASSESSMENT AND PLAN: This is a 66-year-old male who presents with shortness of breath. 1. Shortness of breath, metastatic disease involving lungs and left pleural effusion, moderate. Will keep him in the hospital, currently not using oxygen. We will consult pulmonary. 2. Metastatic prostate cancer, follows with heme/onc, currently on apalutamide 240 mg p.o. daily. Xgeva held recently for hypophosphatemia, on Firmagon injections. On 02/16/2022 he had right chest wall core needle biopsy, which showed metastatic high-grade adenocarcinoma. Need to discuss with hem/onc for further management and continue his home pain medications.Follows with . 3. Hyperlipidemia: Continue statin. 4. Depression: Continue paroxetine. 5. Gastroesophageal reflux disease: Continue omeprazole. 6. The patient has anemia and thrombocytopenia, most likely from ongoing metastatic cancer, and chemo. We will monitor. Stool for Hemoccult. We will follow. 6. Deep venous thrombosis prophylaxis: Sequential compression devices for now as the patient has thrombocytopenia and also for any planned procedures. DISPOSITION: Admit to [facility]. PT/OT prior to discharge. Social service to help with discharge planning. CODE STATUS: Level 1 as per my discussion with the patient. Job ID: [id number] [id number]
--- NOTE | 2022-03-05 08:18 | CT Scan Report ---
CT ANGIOGRAM OF THE CHEST CLINICAL HISTORY: Dyspnea. Generalized weakness. COMPARISON STUDY: Chest x-ray dated 03/04/2022. Chest CT dated 11/21/2020. TECHNIQUE: Following the IV administration of 120 cc of Optiray 320, CT angiogram of the chest was pe rformed from the upper abdomen to the thoracic inlet utilizing the pulmonary embolus protocol. Images are reviewed in the axial, sagittal, and coronal planes. 3-D MIPS images are created and assessed. I V contrast was administered without complication. A dose lowering technique was utilized adhering to the principles of ALARA. CT DOSE: 333.39 mGy.cm FINDINGS: Thyroid: Normal in size and heterogeneous in attenuation. Thoracic aorta: The thoracic aorta is normal in caliber and demonstrates standard 3-vessel arch anato my. No dissection is seen. Pulmonary vasculature: The pulmonary trunk is normal in caliber. Bulky mediastinal and hilar adenopat hy significantly narrows the distal left pulmonary branches at the hilum. There are no filling defect s identified in main, lobar, or segmental pulmonary branches to suggest pulmonary embolus. Heart: The heart is. Normal in size and without pericardial effusion. Lungs and pleural spaces: There is a small to moderate left pleural effusion with associated atelecta sis of the left lower lung. There are large pleural-based metastases at the left lung base. These aime sure up to 2.1 cm in thickness. There is extrapleural extension of the lesion of the left lung base o n image #110. Again seen is evidence of diffuse/multifocal pulmonary metastatic disease. A right lowe r lobe lesion on image #89 measures up to 3.5 cm. A left infrahilar lesion on image #117 measures up to 4.4 cm. Patchy opacities at the right apex with associated intralobular septal thickening and nodu larity likely represent metastatic disease with lymphangitic tumor. Large lesions in the anterior par amediastinal left upper lobe measure up to 4.1 cm. There is mild surrounding infiltration. A mild ass ociated pneumonitis is not excluded. The trachea is clear. There is significant narrowing of left upp er lobe airway branches in the hilum. Mediastinum: There is bulky mediastinal and hilar adenopathy. A left subcarinal node on image #174 me asures 7.5 x 5.0 cm. A precarinal node on image #182 measures 3.4 x 2.9 cm. Denise: There is bulky hilar adenopathy. Right hilar nodes measure up to 2.4 cm in short axis. Axillae: There is no axillary lymphadenopathy. Upper abdomen: There is a small hiatal hernia. Partially visualized upper abdominal viscera is within normal limits. Skeletal structures: There is evidence of diffuse osteoblastic metastatic disease. A sternal lesion s een on image #130 has large soft tissue components. This measures approximately 7 x 6 cm in aggregate dimension and extends into the anterior mediastinum. There is a large soft tissue lesion involving a right anterior 6th rib lesion. This measures approximately 7 x 5 cm. A soft tissue lesion the body o f T10 minimally effaces the anterior aspect of the thecal sac. This is best seen on axial image #78. IMPRESSION: 1. There is no evidence of pulmonary embolus in the main, lobar, or segmental pulmonary arteries. 2. There is evidence of extensive/multifocal pulmonary and pleural metastatic disease as detailed abo ve. Metastatic disease has significantly progressed as compared to 11/21/2020. 3. There is a small to moderate malignant pleural effusion at the left lung base with associated left basilar atelectasis. 4. There is bulky mediastinal and hilar lymphadenopathy. This narrows the left pulmonary branches at the hilum and has significantly progressed from previous. 5. There is mild infiltration identified around left apical pulmonary lesions. A mild superimposed pn eumonitis is not excluded. Clinical correlation will be required. 6. A soft tissue component of a lesion in the body of T10 minimally effaces the anterior aspect of th e thecal sac. 7. There is extensive osteoblastic metastatic disease. Several lesions contain large soft tissue comp onents as above. 8. Additional findings as above. ACT 112: Negative or not required by law. Electronically signed by: Caleb Bruno M.D. 03/05/2022 8:16 AM
[2022-03-05] MEDS ORDERED: ONDANSETRON INJ 2 MG/ML 2 ML VIAL IV PRN (08:56)
[2022-03-05] MEDS ORDERED: oxyCODONE HCL IR 5 MG TAB (IMMEDIATE RELEASE) PO PRN (08:56)
[2022-03-05] MEDS ORDERED: ACETAMINOPHEN 325 MG TAB PO PRN (08:56)
[2022-03-05] MEDS ORDERED: ALPRAZolam 0.5 MG TABLET PO PRN (08:56)
[2022-03-05] MEDS ORDERED: POLYETHYLENE (MIRALAX) 17 GM PACK PO PRN (08:56)
[2022-03-05] MEDS ORDERED: NITROGLYCERIN SL 0.4 MG/TAB TAB SL PRN (08:56)
--- NOTE | 2022-03-05 08:57 | XRay Report ---
SINGLE VIEW CHEST CLINICAL HISTORY: Dyspnea. FINDINGS: 2 AP, portable, upright chest radiographs are compared to chest x-ray and chest CT dated 05/2021. The cardiomediastinal silhouette is unremarkable. There is likely mediastinal/hilar adenopat hy. There is a layering left pleural effusion with associated left basilar consolidation. There is ev idence of multifocal pulmonary metastatic disease. No pneumothorax is seen. There is evidence of diff use osteoblastic metastatic disease. IMPRESSION: 1. Layering left pleural effusion with associated left basilar consolidation. 2. There is evidence of multifocal pulmonary metastatic disease as well as probable mediastinal/hilar adenopathy. This has progressed as compared to 11/21/2020. 3. There is evidence of diffuse osteoblastic metastatic disease. ACT 112: Negative or not required by law. Electronically signed by: Caleb Bruno M.D. 03/05/2022 8:55 AM
--- NOTE | 2022-03-05 09:45 | Electrocardiogram Report ---
Test Reason : Blood Pressure : / mmHG Vent. Rate : 123 BPM Atrial Rate : 123 BPM P-R Int : 138 ms QRS Dur : 064 ms QT Int : 288 ms P-R-T Axes : 048 052 059 degrees QTc Int : 412 ms Sinus tachycardia with Premature atrial complexes Low voltage QRS Nonspecific T wave abnormality Abnormal ECG When compared with ECG of 18-JAN-2022 04:08, Premature atrial complexes are now Present Nonspecific T wave abnormality now present Anterior leads Confirmed by Eliud Lyons ([id number]) on 03/05/2022 9:45:14 AM Referred By: REFERRED SELF Confirmed By:Eliud Lyons
[2022-03-05] MEDS ORDERED: NALOXONE HCL 0.4 MG/1 ML VIAL/CARP IV PRN (09:52)
[2022-03-05] MEDS: POT PHOSPHATE MONOBASIC W/ SOD TAB PO SCH ×3 (09:57→21:10)
[2022-03-05] MEDS: PARoxetine HCL 10 MG TAB PO SCH (09:58)
[2022-03-05] MEDS: PANTOprazole 40 MG TAB PO SCH (09:58)
[2022-03-05] MEDS: PRAVASTATIN SOD 20 MG TAB PO SCH (10:12)
[2022-03-05] MEDS: CALCIUM 600MG + VIT D 400 IU TAB PO SCH ×4 (10:12→21:10)
--- NOTE | 2022-03-05 12:24 | Billing Data ---
Date of Service March 05, 2022 Coding Level of Care Code 76332 Inpt Consult Level 5
[2022-03-05 13:28] LABS: INR 1.1 (0.9-1.1); Prothrombin Time 11.7 Seconds (9.0-12.0)
--- NOTE | 2022-03-05 13:54 | Hospitalist Progress Note ---
Date of Service March 05, 2022 Assessment & Plan (1) Malignant pleural effusion: (2) Metastatic cancer to lung: (3) Prostate cancer metastatic to bone: (4) Anemia: (5) Thrombocytopenia: Plan 66 year old male with h/o metastatic prostate cancer with multiple bone mets presented to the ED 03/04 with progressively worsening shortness of breath for past few days. CT chest as below CTA chest 03/04 1. There is no evidence of pulmonary embolus in the main, lobar, or segmental pulmonary arteries. 2. There is evidence of extensive/multifocal pulmonary and pleural metastatic disease as detailed above. Metastatic disease has significantly progressed as compared to 11/21/2020. 3. There is a small to moderate malignant pleural effusion at the left lung base with associated left basilar atelectasis. 4. There is bulky mediastinal and hilar lymphadenopathy. This narrows the left pulmonary branches at the hilum and has significantly progressed from previous. 5. There is mild infiltration identified around left apical pulmonary lesions. A mild superimposed pneumonitis is not excluded. Clinical correlation will be required. 6. A soft tissue component of a lesion in the body of T10 minimally effaces the anterior aspect of the thecal sac. 7. There is extensive osteoblastic metastatic disease. Several lesions contain large soft tissue components as above. Dyspnea likely related to metastatic lung disease with malignant pleural effusion- CT as above. Seen by pulm- s/p bedside diagnostic and therapeutic thoracentesis with immediate relief- removed 1 L of hemorrhagic pleural fluid which was sent for analysis. Feels much better. Follow clx and cytology. - Reviewed pulm recommendation and also spoke to the patient and brother at bedside. Brother wondering if palliative could address his progressively worsening malignancy to him and give an idea about the prognosis/longevity. Also wondering if hospice could be set up at discharge, however he would not like discharge delayed for the same. Will consult palliative and also ask CM to have him evaluated by hospice. Metastatic prostate cancer with bone and lung mets- follows with hemonc. On apalutamide 240 mg p.o. daily. Xgeva held recently for hypophosphatemia, on Firmagon injections. On 02/16/2022 he had right chest wall core needle biopsy, which showed metastatic high-grade adenocarcinoma. Has f/u with his oncologist on 03/09. Anemia: Hb 8.9, prior 11-12 a month ago. likely due to hemorrhagic pleural effusion and his malignancy. Recheck in am Thrombocytopenia- Plt 75, prior normal. Monitor. No bleeding. GERD- continue PPI Depression- on paroxetine DVT ppx- SCDs. Consider chemoprophylaxis if Plt and Hb stable Dispo- Follow up on pleural fluid analysis. Hospice evaluation. Admission and Anticipated Discharge Date Admission Date: March 05, 2022 Subjective [place] much better after thoracentesis. Denies any pain. Breathing significantly improved. Hungry and would like to eat. Discussed with patient and brother at bedside regarding the worsening lung mets. Per his brother who spoke to pulmonology earlier today, since he has poor prognosis, he was thinking if hospice could be set up at discharge but he does not want the discharge to be delayed just for that. 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 Physical Exam Physical Exam: General: Sitting comfortably in bed, not in distress, on room air HEENT: EOMI, SHIMON, MMM Chest: Central chest wall mass, Fair breath sounds bilaterally, no wheezes CVS: Regular rate and rhythm, normal heart sounds, no murmur Abdomen: Soft, non tender, not distended, normal bowel sounds Neuro: Awake, alert, oriented, conversing well, non focal Extremities: No cyanosis, clubbing or edema Results & Data Results & Data ([facility]) Vital Signs (Past 12 Hours) Vital Signs Temp Pulse Pulse Resp BP BP Pulse Ox 03/05/22 11:15 36.6 C 101 H 16 102/64 94 03/05/22 10:07 104 H 03/05/22 09:49 104 H 03/05/22 09:04 36.8 C 100 H 18 123/81 96 03/05/22 08:02 100 H 16 104/68 94 03/05/22 06:30 104 H 18 119/63 94 03/05/22 05:00 101 H 16 97/62 L 95 03/05/22 04:00 101 H 16 107/70 95 03/05/22 03:00 105 H 16 119/75 94 03/05/22 02:00 108 H 20 106/74 94 O2 Del Method 03/05/22 11:15 Room Air 03/05/22 10:07 03/05/22 09:49 03/05/22 09:04 Room Air 03/05/22 08:02 Room Air 03/05/22 06:30 Room Air 03/05/22 05:00 Room Air 03/05/22 04:00 Room Air 03/05/22 03:00 Room Air 03/05/22 02:00 Room Air Laboratory Results Short CBC 03/04/22 03/05/22 Range/Units 22:45 16:09 WBC 4.80 2.99 L (4.8-10.8) K/ul Hgb 8.9 L 8.7 L (14.0-18.0) g/dl Hct 27.8 L 27.1 L (40.1-51.0) % Plt Count 75 L 60 L (130-400) K/uL BMP 03/04/22 22:45 Sodium 134 L Potassium 3.5 Chloride 103 Carbon Dioxide 21 BUN 15 Creatinine 0.75 Glucose 105 H Calcium 8.0 L Liver Function 03/04/22 03/05/22 Range/Units 22:45 14:35 Total Bilirubin 0.6 0.6 (0.2-1.0) mg/dl AST 29 (13-39) U/L ALT 7 (7-52) U/L Alkaline Phosphatase 296 H (34-104) U/L Albumin 3.7 3.2 L (3.4-5.0) gm/dl Urine 03/05/22 Range/Units 02:40 Urine Color Yellow Urine Appearance Clear (Clear) Urine pH 6.5 (4.5-7.5) Ur Specific [place] > 1.045 H (1.000-1.030) Urine Protein Trace H (Negative) Urine Glucose (UA) Negative (Negative) Medications Administered Current Inpatient Medications Acetaminophen (Acetaminophen 325 Mg Tab) 650 mg PO Q4H PRN PRN Reason: Pain or Fever Stop: 04/04/22 08:55 Alprazolam (Alprazolam 0.5 Mg Tablet) 0.5 mg PO HS PRN PRN Reason: Anxiety Stop: 04/04/22 08:55 Apalutamide (Apalutamide 60 Mg Tablet) 240 mg PO DAILY [facility]; Protocol Stop: 04/04/22 14:59 Last Admin: 03/05/22 15:47 Dose: 240 mg Fentanyl (Fentanyl 12 Mcg/Hr Tdsy) 12 mcg TD Q72H [facility] Stop: 03/21/22 08:59 Fentanyl (Fentanyl 25 Mcg/Hr Tdsy) 25 mcg TD Q72H [facility] Stop: 03/21/22 08:59 Miscellaneous (Fentanyl Patch Remove & Waste) 1 each N/A Q72H [facility] Stop: 04/06/22 08:58 Miscellaneous (Check Fentanyl Patch Placement) 1 each N/A QS [facility] Stop: 04/04/22 15:59 Last Admin: 03/05/22 15:48 Dose: 1 each Miscellaneous (Fentanyl Patch Remove & Waste) 1 each N/A Q72H [facility] Stop: 04/06/22 08:58 Miscellaneous (Check Fentanyl Patch Placement) 1 each N/A QS [facility] Stop: 04/04/22 15:59 Last Admin: 03/05/22 15:48 Dose: 1 each Multivitamins/Minerals (Calcium 600mg + Vit D 400 Iu Tab) 2 tab PO QID [facility] Stop: 04/04/22 09:14 Last Admin: 03/05/22 16:02 Dose: 2 tab Naloxone HCl (Naloxone Hcl 0.4 Mg/1 Ml Vial/Carp) 0.4 mg IV Q3M PRN PRN Reason: opioid overdose Stop: 04/04/22 09:51 Nitroglycerin (Nitroglycerin Sl 0.4 Mg/Tab Tab) 0.4 mg SL UD PRN PRN Reason: Chest Pain Stop: 04/04/22 08:55 Ondansetron HCl (Ondansetron Inj 2 Mg/Ml 2 Ml Vial) 4 mg IV Q6H PRN PRN Reason: Nausea Stop: 04/04/22 08:55 Oxycodone HCl (Oxycodone Hcl Ir 5 Mg Tab (Immediate Release)) 10 mg PO QID PRN PRN Reason: Pain Stop: 03/19/22 08:55 Pantoprazole Sodium (Pantoprazole 40 Mg Tab) 40 mg PO DAILY [facility]; Protocol Stop: 04/04/22 09:14 Last Admin: 03/05/22 09:58 Dose: 40 mg Paroxetine HCl (Paroxetine Hcl 10 Mg Tab) 10 mg PO QAM [facility] Stop: 04/04/22 08:59 Last Admin: 03/05/22 09:58 Dose: 10 mg Polyethylene Glycol (Polyethylene (Miralax) 17 Gm Pack) 17 gm PO DAILY PRN PRN Reason: Constipation Stop: 04/04/22 08:55 Last Admin: 03/05/22 16:02 Dose: 17 gm Potassium Phosphate (Pot Phosphate Monobasic W/ Sod Tab) 2 tab PO TID [facility] Stop: 04/04/22 09:14 Last Admin: 03/05/22 10:15 Dose: Not Given Pravastatin Sodium (Pravastatin Sod 20 Mg Tab) 20 mg PO DAILY [facility] Stop: 04/04/22 08:59 Last Admin: 03/05/22 10:12 Dose: 20 mg
--- NOTE | 2022-03-05 14:55 | Procedure Note ---
Procedure Note Date of Service March 05, 2022 Note Procedure: Diagnostic and/or therapeutic ultrasound-guided catheter thoracentesis Aids Social Worker: Dr. Red Matthews Indication: Pleural effusion Consent: Signed by patient and verified with timeout prior to procedure Anesthesia: 8 mL's of 1% lidocaine without epinephrine given locally Procedure: Consent was verified and timeout performed. Appropriate imaging studies were reviewed prior to the procedure. Patient was placed in a seated position and limited thoracic ultrasound was performed of the left lateral chest. See separate imaging. The site appropriate for thoracentesis was selected. The skin was prepped and draped in normal sterile fashion. Lidocaine was used for local analgesia. Fluid was aspirated via the finder needle. A small skin camilla was made with the scalpel and the catheter over the needle apparatus was advanced over the rib into the pleural space. Using the syringe one-way valve system, a total of 1000 mL's of serosanguineous fluid was removed. Procedure was terminated due to lack of flow. The catheter was removed and observed to be intact. A sterile dressing was applied. Post procedure chest x-ray was ordered. Fluid was sent for LDH, total protein, cell count, glucose, pH, cytology, AFB cultures, gram stain and culture and fungal cultures. The patient tolerated the procedure well without obvious complication. Coding
--- NOTE | 2022-03-05 15:06 | Pulmonary Consultation ---
Date of Consultation March 05, 2022 Assessment & Plan (1) Metastatic adenocarcinoma to prostate: Patient with advanced prostate cancer refractory to multiple treatments. Follows with medical oncology at [facility]. Recommend palliative care consultation given the disease burden. Prognosis from my perspective appears quite poor. (2) Pleural effusion: Left thoracentesis performed yielding 1000 mL of hemorrhagic appearing pleural effusion. Notably, there does appear to be heterogeneous fluid collection on the CT chest and this coincided to the patient's worsening anemia. I suspect that there may have been hemorrhagic effusion present. Patient felt notably better postthoracentesis. We will monitor closely and reevaluate the patient tomorrow. Pleural fluid sent for cultures, cytology and cell counts. (3) Goals of care, counseling/discussion: Had a lengthy discussion with the patient and his brother regarding goals of care. We discussed things such as palliative care and hospice care. We also discussed the patient's CODE STATUS. Patient reiterated to me that he would like to be a DNR in the event of a cardiac arrest. We will change CODE STATUS to reflect his wishes. Plan Thank you for allowing us to participate in the care of this patient. Please call with questions. History of Present Illness Reason for Consultation: Pleural effusion and dyspnea Attending Physician: Hernando Deshpande MD History of Present Illness 66-year-old male with a history of prostate cancer that is metastatic to the lungs and bones presenting to the hospital due to increasing shortness of breath and cough. Patient notes shortness of breath with minimal exertion. He also notes decreased appetite and increased lethargy. History is obtained from the patient, hospitalist, bedside nurse, chart review and the patient's brother. Patient denies any prior thoracentesis or pleural procedures. Chest CTA completed yesterday revealed large bilateral pulmonary mets and a moderate size left pleural effusion. CBC reveals worsening anemia. Allergies Allergy/AdvReac Type Severity Reaction Status Date / Time No Known Allergies Allergy Mild Verified 03/05/22 03:10 Home Medications Medication Instructions Recorded Confirmed Type acetaminophen 500 mg tablet 500 mg PO Q6H PRN Unknown 01/06/22 03/05/22 History (Tylenol Extra Strength) alprazolam 0.5 mg tablet (Xanax) 0.5 mg PO HS PRN Anxiety 01/06/22 03/05/22 History apalutamide 60 mg tablet 240 mg PO DAILY 01/06/22 03/05/22 History calcium carbonate 600 mg-vitamin 2 tab PO QID 01/06/22 03/05/22 History D3 10 mcg (400 unit) chewable tablet naloxone 4 mg/actuation nasal spray 1 spray intranasal Q3M PRN opioid 01/06/22 03/05/22 Rx overdose #2 ea potassium phosphate, monobasic 500 1,000 mg PO TID 01/06/22 03/05/22 History mg soluble tablet pravastatin 20 mg tablet 20 mg PO DAILY 01/06/22 03/05/22 History omeprazole 20 mg capsule,delayed 20 mg PO DAILY 01/18/22 03/05/22 History release ibuprofen 800 mg tablet 800 mg PO Q8H PRN pain #30 tabs 02/01/22 03/05/22 Rx prednisone 20 mg tablet 40 mg PO .COMPLEX #40 tabs 02/01/22 03/05/22 Rx fentanyl 37.5 mcg/hour transdermal 1 patch transdermal Q72H #10 ea 02/16/22 03/05/22 Rx patch oxycodone 10 mg tablet 10 mg PO QID PRN Pain 03/05/22 03/05/22 History paroxetine HCl 10 mg tablet 10 mg PO QAM 03/05/22 03/05/22 History Patient History Medical History (Updated 03/05/22 @ 15:23 by Red Matthews MD) Adult hypophosphatasia Degenerative disc disease Goals of care, counseling/discussion Hearing loss Hip pain, acute Hyperlipidemia Intractable pain Lumbar spinal stenosis Mass of colon with enlarged lymph nodes Metastatic disease Pleural effusion Prostate cancer Prostate cancer metastatic to bone Renal colic on right side Tinnitus Surgical History History of appendectomy History of colonoscopy History of tonsillectomy Family History Other Cancer Colorectal cancer Heart disease Lung disease Social History Smoking Status: Never smoker Second Hand Exposure: No; Hx Alcohol Use: No Hx Substance Use: No Preferred Language: Azeri Communication Ability: Effective 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 Laying in bed. Eyes: Pupils are equal round and reactive to light. Conjunctivae are normal. Anicteric sclera. Ears nose, mouth and throat: No obvious deformity seen. Neck: Trachea is midline. Visual inspection is normal. Respiratory: Diminished lung sounds on the left. Mild rhonchi. Cardiovascular: Regular rate and rhythm. No murmurs. No edema. Gastrointestinal: Normal bowel sounds, soft, nontender and nondistended. No hepatosplenomegaly noted. Musculoskeletal: No cyanosis. Patient is able to move all extremities. Skin: No rashes, warm dry and intact. Neurologic: No obvious focal neurological deficits seen. Psychiatric: Alert and oriented x3 with a euthymic affect. Results & Data Results & Data ([facility]) Vital Signs (Past 12 Hours) Vital Signs Temp Pulse Pulse Resp BP BP Pulse Ox 03/05/22 11:15 36.6 C 101 H 16 102/64 94 03/05/22 10:07 104 H 03/05/22 09:49 104 H 03/05/22 09:04 36.8 C 100 H 18 123/81 96 03/05/22 08:02 100 H 16 104/68 94 03/05/22 06:30 104 H 18 119/63 94 03/05/22 05:00 101 H 16 97/62 L 95 03/05/22 04:00 101 H 16 107/70 95 O2 Del Method 03/05/22 11:15 Room Air 03/05/22 10:07 03/05/22 09:49 03/05/22 09:04 Room Air 03/05/22 08:02 Room Air 03/05/22 06:30 Room Air 03/05/22 05:00 Room Air 03/05/22 04:00 Room Air PG Care Time/CCT Total # of Minutes Spent Total Time Spent with Patient: Total time spent is greater than 50% in coordination of care (as documented) at patient's floor/unit and/or counseling patient: Coding Level of Care Code 14670 Inpt Consult Level 5 Diagnoses Metastatic adenocarcinoma to prostate C79.82 Pleural effusion J90 Goals of care, counseling/discussion Z71.89
[2022-03-05 15:08] LABS: Albumin Level 3.2 gm/dl (3.4-5.0); Bilirubin,Total 0.6 mg/dl (0.2-1.0); Total Protein 5.8 gm/dl (6.0-8.3)
[2022-03-05 15:08] LABS: Total Protein Pleural Fluid 3.1 gm/dl
[2022-03-05] MEDS ORDERED: ALBUMIN 5% 250 ML IV ONE ×2 (15:18)
--- NOTE | 2022-03-05 15:24 | XRay Report ---
SINGLE VIEW CHEST CLINICAL HISTORY: Status post thoracentesis. FINDINGS: An AP, portable, upright chest radiograph is compared to study dated 03/04/2022 and correlat ed with chest CT dated 03/05/2022. The cardiomediastinal silhouette is unremarkable. There is likely m ediastinal/hilar adenopathy. There is a small residual left pleural effusion with left basilar consol idation. This has decreased in size from today's earlier examination. Again seen is evidence of multi focal pulmonary metastatic disease. No pneumothorax is identified. There is evidence of diffuse osteo blastic metastatic disease. IMPRESSION: 1. There is a small residual left pleural effusion with associated left basilar consolidation. This h as significantly decreased in size from today's earlier examination. 2. No pneumothorax is identified post procedure. 3. Again noted is evidence of multifocal pulmonary metastatic disease and diffuse osteoblastic metast atic disease. ACT 112: Negative or not required by law. Electronically signed by: Caleb Bruno M.D. 03/05/2022 3:21 PM
[2022-03-05] MEDS: APALUTAMIDE 60 MG PO SCH (15:47)
[2022-03-05] MEDS: CHECK fentaNYL PATCH PLACEMENT SCH ×2 (15:48)
[2022-03-05] MEDS ORDERED: CHECK fentaNYL PATCH PLACEMENT SCH (16:00)
[2022-03-05 16:18] LABS: Appearance Pleural Fluid Bloody; Color Pleural Fluid Red; Lymphocytes, Fluid 10 %; Mono,Macrophage,Mesothelial 76 %; Neutrophils, Fluid 14 %; RBC Pleural Fluid (A) 514000 /uL; Source Pleural Fluid L.LUNG; WBC Pleural Fluid (A) 1121 /uL
[2022-03-05 16:24] LABS: Hematocrit (blood only) 27.1 % (40.1-51.0); Hemoglobin 8.7 g/dl (14.0-18.0); Mean Corpuscular Hemoglobin 28.1 pg (25.0-34.0); Mean Corpuscular Hgb Conc 32.1 g/dL (32.0-36.0); Mean Corpuscular Volume 87.4 fL (80.0-100.0); Mean Platelet Volume 10.4 fL (9.4-12.4); Nucleated RBC # (auto) 0.25 K/uL (0-0); Nucleated RBC % (auto) 8.4 %; Platelet Count 60 K/uL (130-400); RDW Coefficient of Variation 16.8 % (11.5-14.5); White Blood Count 2.99 K/ul (4.8-10.8)
[2022-03-05 17:08] LABS: ANC (manual) 2.06 K/uL (1.4-6.5); Basophilic Stippling 1+; Eosinophils # (manual) 0.06 K/uL (0-0.50); Eosinophils % (manual) 2 %; Lymphocytes % (manual) 20 %; Metamyelocytes # (manual) 0.09 K/uL (0-0); Metamyelocytes % (manual) 3 %; Monocytes # (manual) 0.12 K/uL (0.24-0.82); Monocytes % (manual) 4 %; Myelocytes # (manual) 0.09 K/uL (0-0); Myelocytes % (manual) 3 %; Neutrophils # (manual) 2.06 K/uL (1.4-6.5); Neutrophils % (manual) 69 %; Polychromasia 1+; Tear Drop Cells 1+
[2022-03-05] MEDS ORDERED: MELATONIN 3 MG TAB PO PRN (20:16)
[2022-03-06] MEDS: CHECK fentaNYL PATCH PLACEMENT SCH ×4 (00:49→07:38)
[2022-03-06] MEDS: PRAVASTATIN SOD 20 MG TAB PO SCH (07:38)
[2022-03-06] MEDS: CALCIUM 600MG + VIT D 400 IU TAB PO SCH ×2 (07:38→11:04)
[2022-03-06] MEDS: POT PHOSPHATE MONOBASIC W/ SOD TAB PO SCH ×2 (07:38→11:04)
[2022-03-06] MEDS: PARoxetine HCL 10 MG TAB PO SCH (07:39)
[2022-03-06] MEDS: PANTOprazole 40 MG TAB PO SCH (07:39)
[2022-03-06] MEDS: APALUTAMIDE 60 MG PO SCH (07:42)
[2022-03-06 08:58] LABS: Hematocrit (blood only) 25.2 % (40.1-51.0); Hemoglobin 8.3 g/dl (14.0-18.0); Mean Corpuscular Hemoglobin 28.4 pg (25.0-34.0); Mean Corpuscular Hgb Conc 32.9 g/dL (32.0-36.0); Mean Corpuscular Volume 86.3 fL (80.0-100.0); Mean Platelet Volume 9.9 fL (9.4-12.4); Nucleated RBC # (auto) 0.41 K/uL (0-0); Nucleated RBC % (auto) 11.4 %; Platelet Count 54 K/uL (130-400); RDW Coefficient of Variation 16.7 % (11.5-14.5); RDW Standard Deviation 50.3 fL (36.4-46.3); Red Blood Count 2.92 M/uL (4.63-6.08); White Blood Count 3.61 K/ul (4.8-10.8)
[2022-03-06 09:22] LABS: BUN Creatinine Ratio 16.1 (10-20); Calcium 7.6 mg/dl (8.5-10.1); Creatinine Clr Calc Pharmacy 136.3 ml/min; Est GFR (African American) 124.1 ml/min; Potassium 3.1 mmol/L (3.5-5.1)
[2022-03-06 09:24] LABS: ALC (manual) 1.12 K/uL (1.2-3.4); ANC (manual) 2.17 K/uL (1.4-6.5); Eosinophils # (manual) 0.04 K/uL (0-0.50); Eosinophils % (manual) 1 %; Lymphocytes # (manual) 1.12 K/uL (1.2-3.4); Lymphocytes % (manual) 31 %; Monocytes # (manual) 0.11 K/uL (0.24-0.82); Monocytes % (manual) 3 %; Myelocytes # (manual) 0.18 K/uL (0-0); Myelocytes % (manual) 5 %; Neutrophils # (manual) 2.17 K/uL (1.4-6.5); Neutrophils % (manual) 60 %; Tear Drop Cells 1+
[2022-03-06] MEDS ORDERED: POTASSIUM CHLORIDE CRTAB 20 MEQ TABCR PO ONE (10:22)
--- NOTE | 2022-03-06 10:33 | Pulmonology Progress Note ---
Date of Service March 06, 2022 Assessment & Plan (1) Metastatic adenocarcinoma to prostate: Plan: Patient with advanced prostate cancer refractory to multiple treatments. Follows with medical oncology at [facility]. Recommend palliative care consultation given the disease burden. Prognosis from my perspective appears quite poor. (2) Pleural effusion: Plan: Left thoracentesis performed yielding 1000 mL of hemorrhagic appearing pleural effusion. Notably, there does appear to be a heterogeneous fluid collection on the CT chest and this coincided to the patient's worsening anemia. I suspect th at there may have been hemorrhagic effusion present. Patient felt notably better post thoracentesis. Chest x-ray ordered today which is pending. Hemoglobin stable. Pleural fluid sent for cultures, cytology and cell counts. (3) Goals of care, counseling/discussion: Plan: Recommend palliative care consult as above. Patient currently DNR. Plan Thank you for allowing us to participate in the care of this patient. Please call with questions. Admission and Anticipated Discharge Date Admission Date: March 05, 2022 Subjective Patient seen and examined. Clinically appears stable. Notes improved shortness of breath. No cough. Remains sedentary and diffusely weak. Review of Systems Review of Systems: All systems reviewed & are unremarkable except as noted in HPI & below Physical Exam Physical Exam: Constitutional: Frail-appearing male in no apparent distress. Laying in bed. Eyes: Pupils are equal round and reactive to light. Conjunctivae are normal. Anicteric sclera. Ears nose, mouth and throat: No obvious deformity seen. Neck: Trachea is midline. Visual inspection is normal. Respiratory: Diminished lung sounds on the left. Mild rhonchi. Cardiovascular: Regular rate and rhythm. No murmurs. No edema. Gastrointestinal: Normal bowel sounds, soft, nontender and nondistended. No hepatosplenomegaly noted. Musculoskeletal: No cyanosis. Patient is able to move all extremities. Skin: No rashes, warm dry and intact. Large anterior chest wall mass noted. Neurologic: No obvious focal neurological deficits seen. Psychiatric: Alert and oriented x3 with a euthymic affect. Results & Data Results & Data ([facility]) Vital Signs (Past 12 Hours) Vital Signs Temp Pulse Pulse Resp BP Pulse Ox O2 Del Method 03/06/22 08:44 36.9 C 105 H 18 124/77 96 Room Air 03/06/22 07:29 98 H 03/06/22 02:46 36.7 C 105 H 18 102/68 96 Room Air 07/24/22 03:04 109 H 03/05/22 22:45 37.1 C 107 H 18 104/67 95 Room Air PG Care Time/CCT Total # of Minutes Spent Total Time Spent with Patient: Total time spent is greater than 50% in coordination of care (as documented) at patient's floor/unit and/or counseling patient: Coding Level of Care Code 76686 Subseq Hosp Care Lvl 3 Diagnoses Metastatic adenocarcinoma to prostate C79.82 Pleural effusion J90 Goals of care, counseling/discussion Z71.89
--- NOTE | 2022-03-06 11:30 | XRay Report ---
XR chest 1V portable HISTORY: shortness of breath COMPARISON: Chest 03/05/2022. FINDINGS: No pneumothorax. The cardiac silhouette remains mildly enlarged. Small bilateral pleural ef fusions, left greater the right. There is mild central pulmonary vascular congestion without overt ed zehra. Extensive osteoblastic metastatic disease is again noted. Mediastinal and hilar lymphadenopathy persists. Multifocal pulmonary nodules consistent with metastatic disease are again noted. Right apic al consolidation is better appreciated on the prior chest CT. IMPRESSION: 1. Extensive metastatic disease again noted. 2. Small bilateral pleural effusions. 3. Mild central pulmonary vascular congestion without overt edema. ACT 112: Negative or not required by law. Electronically signed by: Jin Kumar M.D. 03/06/2022 11:29 AM
[2022-03-06 11:38] VITALS: PULSE 102; TEMP 98.2; O2SAT 95
[2022-03-06 14:30] VITALS: BP 100/67
--- NOTE | 2022-03-06 15:02 | Discharge Summary ---
Date of Service March 06, 2022 Admission HPI Per Admitting Provider A 66-year-old male with past medical history significant for hyperlipidemia, metastatic prostate cancer, multiple sites of bone metastases, subjective tinnitus, sensorineural hearing loss, bilateral left lumbar radiculopathy, anemia, lumbar stenosis, generalized anxiety disorder, who presents with shortness of breath. States since last few days he is getting short of breath and that is the reason he came to the hospital. Denies any chest pain. Has occasional cough with some phlegm. No fevers. Appetite is very poor. No difficulty swallowing. No nausea, no vomiting, no abdominal pain. Somewhat constipated, but denies any blood in the stools. Normal bladder movements. No swelling in the legs. Ambulating okay at home, but feeling weak. No headache, no dizziness, no blurred visions, no earache, no runny nose, no sore throat. Currently, resting comfortably and hemodynamically stable. Imaging studies with CT chest in the ER showed left pleural effusion and metastatic disease. Admission Exam Per Admitting Provider GENERAL: The patient is of moderate build, not in acute distress. VITAL SIGNS: Temperature 36.4, pulse 101, respiratory rate 16, blood pressure 97/62, oxygen 94% on room air. HEENT: Pupils equal, round and reactive to light. Oral mucosa dry. NECK: No JVD, no neck masses. CARDIOVASCULAR: S1 and S2 heard. Regular rate and rhythm. No murmur, no gallop. RESPIRATORY SYSTEM: Normal AP diameter. No accessory muscle use. No wheezing, no crackles. ABDOMEN: Soft, bowel sounds present, nontender, no distention. CENTRAL NERVOUS SYSTEM: Cranial nerves II through XII are grossly intact, nonfocal. EXTREMITIES: No edema, no erythema. Principal Diagnosis Metastatic prostate adenocarcinoma with bone and lung mets with malignant pleural effusion Discharge Exam General: Sitting comfortably in bed, not in distress, on room air HEENT: EOMI, SHIMON, MMM Chest: Central chest wall mass, Fair breath sounds bilaterally, no wheezes CVS: Regular rate and rhythm, normal heart sounds, no murmur Abdomen: Soft, non tender, not distended, normal bowel sounds Neuro: Awake, alert, oriented, conversing well, non focal Extremities: No cyanosis, clubbing or edema Discharge Data Allergies Allergy/AdvReac Type Severity Reaction Status Date / Time No Known Allergies Allergy Mild Verified 03/05/22 03:10 Consultations 03/05/22 04:16 ED Decision to Admit Stat 03/05/22 08:56 Consult Pulmonology Routine 03/05/22 16:42 Consult Palliative Care Routine 03/06/22 14:14 Burn CD for patient Stat Ordered Studies 03/04/22 23:37 CT angio chest PE protocol Urgent 03/05/22 13:12 US point of care ultrasound Urgent Laboratory Results WBC 3.61 K/ul (4.8-10.8) L 03/06/22 08:44 RBC 2.92 M/uL (4.63-6.08) L 03/06/22 08:44 Hgb 8.3 g/dl (14.0-18.0) L 03/06/22 08:44 Hct 25.2 % (40.1-51.0) L 03/06/22 08:44 MCV 86.3 fL (80.0-100.0) 03/06/22 08:44 MCH 28.4 pg (25.0-34.0) 03/06/22 08:44 MCHC 32.9 g/dL (32.0-36.0) 03/06/22 08:44 RDW Std Deviation 50.3 fL (36.4-46.3) H 03/06/22 08:44 RDW Coeff of Rosetta 16.7 % (11.5-14.5) H 03/06/22 08:44 Plt Count 54 K/uL (130-400) L 03/06/22 08:44 MPV 9.9 fL (9.4-12.4) 03/06/22 08:44 Immature Gran % (Auto) 8.3 % 03/04/22 22:45 Neut % (Auto) 36.9 % 03/04/22 22:45 Lymph % (Auto) 35.6 % 03/04/22 22:45 Davie % (Auto) 16.9 % 03/04/22 22:45 Eos % (Auto) 0.6 % 03/04/22 22:45 Baso % (Auto) 1.7 % 03/04/22 22:45 Neut # (Auto) 1.77 K/uL (1.4-6.5) 03/04/22 22:45 Lymph # (Auto) 1.71 K/uL (1.2-3.4) 03/04/22 22:45 Davie # (Auto) 0.81 K/uL (0.24-0.82) 03/04/22 22:45 Eos # (Auto) 0.03 K/uL (0-0.50) 03/04/22 22:45 Baso # (Auto) 0.08 K/uL (0-0.2) 03/04/22 22:45 Immature Gran # (Auto) 0.40 K/uL (0.00-0.02) H 03/04/22 22:45 Absolute Nucleated RBC 0.41 K/uL (0-0) H 03/06/22 08:44 Nucleated RBC % (auto) 11.4 % 03/06/22 08:44 Neutrophils % (Manual) 60 % 03/06/22 08:44 Lymphocytes % (Manual) 31 % 03/06/22 08:44 Monocytes % (Manual) 3 % 03/06/22 08:44 Eosinophils % (Manual) 1 % 03/06/22 08:44 Metamyelocytes % (Man) 3 % 03/05/22 16:09 Myelocytes % (Man) 5 % 03/06/22 08:44 Neutrophils # (Manual) 2.17 K/uL (1.4-6.5) 03/06/22 08:44 Total Absolute Neuts 2.17 K/uL (1.4-6.5) 03/06/22 08:44 Lymphocytes # (Manual) 1.12 K/uL (1.2-3.4) L 03/06/22 08:44 Total Abs Lymphocytes 1.12 K/uL (1.2-3.4) L 03/06/22 08:44 Monocytes # (Manual) 0.11 K/uL (0.24-0.82) L 03/06/22 08:44 Eosinophils # (Manual) 0.04 K/uL (0-0.50) 03/06/22 08:44 Metamyelocytes # (Man) 0.09 K/uL (0-0) H 03/05/22 16:09 Myelocytes # (Manual) 0.18 K/uL (0-0) H 03/06/22 08:44 Platelet Estimate Decreased (Normal) L 03/04/22 22:45 Polychromasia 1+ 03/05/22 16:09 Basophilic Stippling 1+ 03/05/22 16:09 Tear Drop Cells 1+ 03/06/22 08:44 PT 11.7 Seconds (9.0-12.0) 03/05/22 13:05 INR 1.1 (0.9-1.1) 03/05/22 13:05 Sodium 137 mmol/L (136-145) 03/06/22 08:44 Potassium 3.1 mmol/L (3.5-5.1) L 03/06/22 08:44 Chloride 107 mmol/L (98-107) 03/06/22 08:44 Carbon Dioxide 21 mmol/L (21-32) 03/06/22 08:44 Anion Gap 9 (3-11) 03/06/22 08:44 BUN 9 mg/dl (6-23) 03/06/22 08:44 Creatinine 0.56 mg/dl (0.6-1.4) L 03/06/22 08:44 Est Cr Clr Drug Dosing 136.3 ml/min 03/06/22 08:44 Est GFR ( Amer) 124.1 ml/min 03/06/22 08:44 Est GFR (Non-Af Amer) 107.0 ml/min 03/06/22 08:44 BUN/Creatinine Ratio 16.1 (10-20) 03/06/22 08:44 Glucose 132 mg/dl (70-99(Fasting)) H 03/06/22 08:44 Calcium 7.6 mg/dl (8.5-10.1) L 03/06/22 08:44 Total Bilirubin 0.6 mg/dl (0.2-1.0) 03/05/22 14:35 AST 29 U/L (13-39) 03/04/22 22:45 ALT 7 U/L (7-52) 03/04/22 22:45 Alkaline Phosphatase 296 U/L (34-104) H 03/04/22 22:45 Lactate Dehydrogenase 528 U/L (86-244) H 03/05/22 14:35 Total Protein 5.8 gm/dl (6.0-8.3) L 03/05/22 14:35 Albumin 3.2 gm/dl (3.4-5.0) L 03/05/22 14:35 Globulin 2.9 gm/dl (2.5-4.0) 03/04/22 22:45 Albumin/Globulin Ratio 1.3 (0.9-2) 03/04/22 22:45 Urine Color Yellow 03/05/22 02:40 Urine Appearance Clear (Clear) 03/05/22 02:40 Urine pH 6.5 (4.5-7.5) 03/05/22 02:40 Ur Specific [place] > 1.045 (1.000-1.030) H 03/05/22 02:40 Urine Protein Trace (Negative) H 03/05/22 02:40 Urine Glucose (UA) Negative (Negative) 03/05/22 02:40 Urine Ketones Negative (Negative) 03/05/22 02:40 Urine Blood Negative (Negative) 03/05/22 02:40 Urine Nitrite Negative (Negative) 03/05/22 02:40 Urine Bilirubin Negative (Negative) 03/05/22 02:40 Urine Urobilinogen Negative (Negative) 03/05/22 02:40 Ur Leukocyte Esterase Negative (Negative) 03/05/22 02:40 Urine WBC (Auto) 1-5 /hpf (0-5) 03/05/22 02:40 Urine RBC (Auto) 0-4 /hpf (0-4) 03/05/22 02:40 U Hyaline Cast (Auto) 1-5 /lpf (0-5) 03/05/22 02:40 U Epithel Cells (Auto) 5-10 /lpf (0-5) H 03/05/22 02:40 Urine Bacteria (Auto) Negative (Negative) 03/05/22 02:40 Fluid Neutrophils % 14 % 03/05/22 14:30 Fluid Lymphocytes % 10 % 03/05/22 14:30 Fluid [place]/Macro/Davie % 76 % 03/05/22 14:30 Fluid Comment 03/05/22 14:30 Pleural Fluid Source L.LUNG 03/05/22 14:30 Pleural Color Red 03/05/22 14:30 Pleural Appearance Bloody 03/05/22 14:30 Pleural pH 7.39 (7.3-7.4) 03/05/22 14:30 Pleural WBC 1121 /uL 03/05/22 14:30 Pleural RBC 678430 /uL 03/05/22 14:30 Pleural Total Protein 3.1 gm/dl 03/05/22 14:30 Pleural LDH 293 U/L 03/05/22 14:30 Pleural Glucose 102 mg/dl 03/05/22 14:30 Pleural Amylase 11 U/L 03/05/22 14:30 SARS-CoV-2, RNA, NAAT NEGATIVE (NEGATIVE) 03/04/22 23:47 Blood Type O Positive 03/05/22 01:03 Antibody Screen NEGATIVE 03/05/22 01:03 Crossmatch See Detail 03/05/22 01:03 Impressions Chest CTA 03/04/22 23:37 CT ANGIOGRAM OF THE CHEST CLINICAL HISTORY: Dyspnea. Generalized weakness. COMPARISON STUDY: Chest x-ray dated 03/04/2022. Chest CT dated 11/21/2020. TECHNIQUE: Following the IV administration of 120 cc of Optiray 320, CT angiogram of the chest was performed from the upper abdomen to the thoracic inlet utilizing the pulmonary embolus protocol. Images are reviewed in the axial, sagittal, and coronal planes. 3-D MIPS images are created and assessed. IV contrast was administered without complication. A dose lowering technique was utilized adhering to the principles of ALARA. CT DOSE: 333.39 mGy.cm FINDINGS: Thyroid: Normal in size and heterogeneous in attenuation. Thoracic aorta: The thoracic aorta is normal in caliber and demonstrates standard 3-vessel arch anatomy. No dissection is seen. Pulmonary vasculature: The pulmonary trunk is normal in caliber. Bulky mediastinal and hilar adenopathy significantly narrows the distal left pulmonary branches at the hilum. There are no filling defects identified in main, lobar, or segmental pulmonary branches to suggest pulmonary embolus. Heart: The heart is. Normal in size and without pericardial effusion. Lungs and pleural spaces: There is a small to moderate left pleural effusion with associated atelectasis of the left lower lung. There are large pleural- based metastases at the left lung base. These measure up to 2.1 cm in thickness. There is extrapleural extension of the lesion of the left lung base on image #110. Again seen is evidence of diffuse/multifocal pulmonary metastatic disease. A right lower lobe lesion on image #89 measures up to 3.5 cm. A left infrahilar lesion on image #117 measures up to 4.4 cm. Patchy opacities at the right apex with associated intralobular septal thickening and nodularity likely represent metastatic disease with lymphangitic tumor. Large lesions in the anterior paramediastinal left upper lobe measure up to 4.1 cm. There is mild surrounding infiltration. A mild associated pneumonitis is not excluded. The trachea is clear. There is significant narrowing of left upper lobe airway branches in the hilum. Mediastinum: There is bulky mediastinal and hilar adenopathy. A left subcarinal node on image #174 measures 7.5 x 5.0 cm. A precarinal node on image #182 measures 3.4 x 2.9 cm. Denise: There is bulky hilar adenopathy. Right hilar nodes measure up to 2.4 cm in short axis. Axillae: There is no axillary lymphadenopathy. Upper abdomen: There is a small hiatal hernia. Partially visualized upper abdominal viscera is within normal limits. Skeletal structures: There is evidence of diffuse osteoblastic metastatic disease. A sternal lesion seen on image #130 has large soft tissue components. This measures approximately 7 x 6 cm in aggregate dimension and extends into the anterior mediastinum. There is a large soft tissue lesion involving a right anterior 6th rib lesion. This measures approximately 7 x 5 cm. A soft tissue lesion the body of T10 minimally effaces the anterior aspect of the thecal sac. This is best seen on axial image #78. IMPRESSION: 1. There is no evidence of pulmonary embolus in the main, lobar, or segmental pulmonary arteries. 2. There is evidence of extensive/multifocal pulmonary and pleural metastatic disease as detailed above. Metastatic disease has significantly progressed as compared to 11/21/2020. 3. There is a small to moderate malignant pleural effusion at the left lung base with associated left basilar atelectasis. 4. There is bulky mediastinal and hilar lymphadenopathy. This narrows the left pulmonary branches at the hilum and has significantly progressed from previous. 5. There is mild infiltration identified around left apical pulmonary lesions. A mild superimposed pneumonitis is not excluded. Clinical correlation will be required. 6. A soft tissue component of a lesion in the body of T10 minimally effaces the anterior aspect of the thecal sac. 7. There is extensive osteoblastic metastatic disease. Several lesions contain large soft tissue components as above. 8. Additional findings as above. ACT 112: Negative or not required by law. Electronically signed by: Caleb Bruno M.D. 03/05/2022 8:16 AM Chest X-Ray 03/06/22 10:19 XR chest 1V portable HISTORY: shortness of breath COMPARISON: Chest 03/05/2022. FINDINGS: No pneumothorax. The cardiac silhouette remains mildly enlarged. Small bilateral pleural effusions, left greater the right. There is mild central pulmonary vascular congestion without overt edema. Extensive osteoblastic metastatic disease is again noted. Mediastinal and hilar lymphadenopathy p ersists. Multifocal pulmonary nodules consistent with metastatic disease are again noted. Right apical consolidation is better appreciated on the prior chest CT. IMPRESSION: 1. Extensive metastatic disease again noted. 2. Small bilateral pleural effusions. 3. Mild central pulmonary vascular congestion without overt edema. ACT 112: Negative or not required by law. Electronically signed by: Jin Kumar M.D. 03/06/2022 11:29 AM Hospital Course (1) Malignant pleural effusion: (2) Metastatic cancer to lung: (3) Prostate cancer metastatic to bone: (4) Anemia: (5) Thrombocytopenia: Plan 66 year old male with h/o metastatic prostate cancer with multiple bone mets presented to the ED 03/04 with progressively worsening shortness of breath for past few days. CT chest as below CTA chest 03/04 1. There is no evidence of pulmonary embolus in the main, lobar, or segmental pulmonary arteries. 2. There is evidence of extensive/multifocal pulmonary and pleural metastatic disease as detailed above. Metastatic disease has significantly progressed as compared to 11/21/2020. 3. There is a small to moderate malignant pleural effusion at the left lung base with associated left basilar atelectasis. 4. There is bulky mediastinal and hilar lymphadenopathy. This narrows the left pulmonary branches at the hilum and has significantly progressed from previous. 5. There is mild infiltration identified around left apical pulmonary lesions. A mild superimposed pneumonitis is not excluded. Clinical correlation will be required. 6. A soft tissue component of a lesion in the body of T10 minimally effaces the anterior aspect of the thecal sac. 7. There is extensive osteoblastic metastatic disease. Several lesions contain large soft tissue components as above. CXR 03/06 1. Extensive metastatic disease again noted. 2. Small bilateral pleural effusions. 3. Mild central pulmonary vascular congestion without overt edema. Dyspnea related to metastatic lung disease with malignant pleural effusion- CT as above. Seen by pulm- s/p bedside diagnostic and therapeutic thoracentesis with immediate relief- removed 1 L of hemorrhagic pleural fluid which was sent for analysis. Feels better, ambulated independently to bathroom without issues. Pleural fluid clx negative so far. Follow up on final clx results and cytology. Metastatic prostate cancer with bone and lung mets- follows with [facility]mon[facility]. On apalutamide 240 mg p.o. daily. Xgeva held recently for hypophosphatemia, on Firmagon injections. On 02/16/2022 he had right chest wall core needle biopsy, which showed metastatic high-grade adenocarcinoma. Has f/u with his oncologist on 03/09. Yesterday, his brother was wondering hospice evaluation given his progressively worsening malignancy, however patient would like to continue chemo for his malignancy. CM talked to patient and his brother and provided information about home hospice if he opts for it down the road. Anemia: Hb 8.9->8.3, relatively stable.Likely due to hemorrhagic pleural effusion and his malignancy. Follow up with oncologist. Thrombocytopenia- Plt 60, relatively stable. GERD- continue PPI Depression- on paroxetine Hypokalemia- repleted. Patient is feeling better and would like to go home. He is comfortable and stable for discharge. Saturating well in room air and ambulating independently to bathroom. Total Time Total Time Spent Total Time Spent (In Minutes): 40 Discharge Plan Discharge Items Patient Disposition: Home - Self-Care Reason For Visit: sob Discharge Diagnosis: Metastatic lung disease with malignant pleural effusion, Stage IV prostate adenocarcinoma with bone and lung mets Activity: Resume your previous activity Non-emergency contact: Primary Care Provider and Oncologist Call non-emergency contact if: you have any medication questions, your symptoms worsen, your pain is not controlled and you have a fever Follow-up/Referrals: Pramod Whipple DO [Primary Care Provider] - Diet: Regular Addtl Attending Provider Instructions: Follow up with your cancer doctor for further management of your cancer which seems to be progressively worsening. Your shortness of breath was from the fluids around the lungs and the cancer- it improved by taking the fluids out but will build up again and might need to take the fluids out again. If down the road, you decide to forego any aggressive treatment of your cancer and decide for hospice, please reach out to the hospice agency. Pending Studies at Discharge: No Stand-Alone Forms: My [facility], Smoking Cessation Medications and DC Order Prescriptions: Continued alprazolam [Xanax] 0.5 mg tablet 0.5 mg PO HS PRN (Reason: Anxiety) acetaminophen [Tylenol Extra Strength] 500 mg tablet 500 mg PO Q6H PRN (Reason: Unknown) apalutamide 60 mg tablet 240 mg PO DAILY potassium phosphate, monobasic 500 mg tablet,soluble 1,000 mg PO TID calcium carbonate-vitamin D3 600 mg-10 mcg (400 unit) tablet,chewable 2 tab PO QID pravastatin 20 mg tablet 20 mg PO DAILY naloxone 4 mg/actuation spray,non-aerosol 1 spray intranasal Q3M PRN (Reason: opioid overdose) Qty: 2 0RF Rx Instructions: administer 1 dose into ONE nostril; alternate nostrils w each dose until assistance arrives prednisone 20 mg tablet 40 mg PO .COMPLEX Qty: 40 1RF Rx Instructions: 40 mg PO Use 2 tabs daily x 3 days starting the day prior to Firmagon injection; ibuprofen 800 mg tablet 800 mg PO Q8H PRN (Reason: pain) Qty: 30 2RF fentanyl 37.5 mcg/hour patch 72 hour 1 patch transdermal Q72H Qty: 10 0RF omeprazole 20 mg capsule,delayed release(DR/EC) 20 mg PO DAILY oxycodone 10 mg tablet 10 mg PO QID PRN (Reason: Pain) paroxetine HCl 10 mg tablet 10 mg PO QAM Discharge Orders: Discharge Order (Routine); Ordered 03/06/22 Ordered By: Hernando Deshpande Admission Data Admit Date/Time: 03/05/22 04:58 Attending Provider: Hernando Deshpande Admit Provider: Zurdo Lowe Primary Care Provider: Pramod Whipple Other Providers: Zurdo Lowe ; Red Matthews ; Jessica Devine Other Interventions: Discharge Summary Assessment (RN) Last Done: 03/06/22 14:29
[2022-03-07] MEDS ORDERED: fentaNYL 25 MCG/HR TDSY TD SCH (09:00)
[2022-03-07] MEDS ORDERED: fentaNYL 12 MCG/HR TDSY TD SCH (09:00)
== END 2022-03-06 15:37 | disposition home or self-care (01) | DRG 181 ==
LOC: ED 22:26 → SUATTDRO 03-05 04:58 → 2N 03-05 04:58

== ENCOUNTER 2022-03-17 12:58 | Inpatient (IN) ==
--- NOTE | 2022-03-17 13:27 | Emergency Department Note ---
Impression & Plan Acute hypoxemic respiratory failure, Malignant pleural effusion, Prostate cancer metastatic to bone, Thrombocytopenia, Dyspnea, Anemia ED Provider Note NAME: NATALEE REYNOSO AGE: 66 SEX: M : 1955 ARRIVES VIA: Ambulance INFORMANT: Patient, ED PROVIDER(S): Bam Howard MD Chief Complaint: Shortness of breath HPI: Patient presents due to concern for increasing shortness of breath. The patient's have mild orthopnea was seen in the outpatient setting by Dr. Lam was referred here for further evaluation and treatment. The patient's also had associated bilateral lower extremity swelling but no calf pain. Patient denies any fevers or chills. He has had mild nonproductive cough. He states that he does have some difficulty with speaking but denies any facial droop numbness tingling or focal weakness. Patient was reportedly hypoxic on room air and was placed on 2 L nasal cannula. Patient does have exertional dyspnea and mild orthopnea. Patient does have a prior history of a malignant pleural effusion did have a thoracentesis completed during his most recent admission approximately 2 weeks prior. ROS: See HPI for pertinent positives and negatives. A total of 10 systems were reviewed and otherwise negative. Past medical history: See below Surgical history: See below Social history: See below Physical Exam: GENERAL: Moderately ill in appearance, pale, fatigued, nasal cannula in place. EYE EXAM: Normal conjunctiva. PERRL, no anisocoria and EOM's grossly intact w/o pain. NECK: Supple, no nuchal rigidity, no adenopathy, non-tender. No signs of meningismus. FROM of the neck with good chin to chest and neck extension. No stridor. Chest: Mass to lower chest. LUNGS: Decreased breath sounds the left base. Normal chest wall mechanics. HEART: Tachycardic and regular, no MRG. ABDOMEN: Abdomen soft, non-tender, normo-active bowel sounds, no masses, no rebound or guarding. BACK: No CVA TTP. SKIN: No rashes and no bruising. UPPER EXTREMITIES: Upper extremities are grossly normal. LOWER EXTREMITIES: Grossly normal, 1-2+ symmetric bilateral lower extremity edema without any calf pain or erythema. Negative Homans' sign bilaterally. NEURO EXAM: A&O x3, cranial nerves II-XII grossly intact, slow deliberate speech., moves all 4 extremities. Differential diagnoses: Reactive airway disease, pneumonia, pneumothorax, COPD, CHF, infections, cardiac ischemia, pulmonary embolism, musculoskeletal, gastrointestinal, as well as other pathologies. Course: Patient was seen and evaluated the bedside. Full history physical exam was performed. EKG interpreted by me Sinus tachycardia, rate of 114, normal intervals, normal axis, no ST elevations. Imaging Studies: See Below Cardiac monitoring: An order was placed for continuous cardiac monitoring. The monitor shows a rate of 112 with tachycardic and regular rhythm. MDM: Patient was seen due to concern for shortness of breath and was referred in the outpatient setting. Blood work was obtained and the patient was continued on nasal cannula. I did try the patient on BiPAP as I was concerned about a recurrence of his malignant effusion. Blood work was obtained and the patient was shown to have a normal potassium and was pending CT angiography in light of the patient's tachycardia hypoxemia and concomitant cancer. Patient does have anemia at 7. The patient was consented and ordered for blood as well as Lasix. Patient does have low calcium which is ordered for replacement. I did speak with Dr. Vasques given the possibility for thoracentesis. He related that the patient did not require this emergently may benefit from a Pleurx catheter given the recurrence of his malignant effusion. Patient's chest x-ray does show the left pleural effusion with extensive metastatic disease cardiomegaly and vascular congestion. CT angiography was ordered which showed no evidence of PE but does show severe compression of the left central pulmonary arteries due to bulky mediastinal hilar lymphadenopathy. Patient does have moderate to large left pleural effusion. I did speak with Enid Amaya PA-C and the patient was admitted by Dr. Vivar. Patient eventually was shown to have low phosphorus. This was ordered by the inpatient team. Critical Care: I have personally spent 67 minutes of critical care time in direct management of this patient. This includes bedside care, interpretation of diagnostic studies, and testing, discussion with consultants, patient, and family members, and other require inpatient management activities. This 67 minutes is in excess of all separately billable procedures. Past Med/Surg History Medical History Adult hypophosphatasia Degenerative disc disease Goals of care, counseling/discussion Hearing loss Hip pain, acute Hyperlipidemia Intractable pain Lumbar spinal stenosis Mass of colon with enlarged lymph nodes Metastatic disease Pleural effusion Prostate cancer Prostate cancer metastatic to bone Renal colic on right side Tinnitus Surgical History History of appendectomy History of colonoscopy History of tonsillectomy Family History Other Cancer Colorectal cancer Heart disease Lung disease Social History Smoking Status: Never smoker Second Hand Exposure: No; Hx Alcohol Use: No Hx Substance Use: No Preferred Language: Kyrgyz Communication Ability: Effective Weight Loss Counselor Required: No Beliefs That Will Affect Care: None marital status: Single Current Living Situation: Family Feels Safe at Home: Yes Assistive Devices: Walker Allergies Allergies Allergy/AdvReac Type Severity Reaction Status Date / Time No Known Allergies Allergy Mild Verified 03/05/22 03:10 Home Meds Home Medications Medication Instructions Recorded Confirmed acetaminophen 500 mg tablet 500 mg PO Q6H PRN Unknown 01/06/22 03/17/22 (Tylenol Extra Strength) alprazolam 0.5 mg tablet (Xanax) 0.5 mg PO HS PRN Anxiety 01/06/22 03/17/22 apalutamide 60 mg tablet 240 mg PO DAILY 01/06/22 03/17/22 calcium carbonate 600 mg-vitamin 2 tab PO QID 01/06/22 03/17/22 D3 10 mcg (400 unit) chewable tablet potassium phosphate, monobasic 500 1,000 mg PO TID 01/06/22 03/17/22 mg soluble tablet pravastatin 20 mg tablet 20 mg PO DAILY 01/06/22 03/17/22 omeprazole 20 mg capsule,delayed 20 mg PO DAILY 01/18/22 03/17/22 release oxycodone 10 mg tablet 10 mg PO QID PRN Pain 03/05/22 03/17/22 paroxetine HCl 10 mg tablet 10 mg PO QAM 03/05/22 03/17/22 Previous Rx's Medication Instructions Recorded naloxone 4 mg/actuation nasal spray 1 spray intranasal Q3M PRN opioid 01/06/22 overdose #2 ea ibuprofen 800 mg tablet 800 mg PO Q8H PRN pain #30 tabs 02/01/22 prednisone 20 mg tablet 40 mg PO .COMPLEX #40 tabs 02/01/22 fentanyl 37.5 mcg/hour transdermal 1 patch transdermal Q72H #10 ea 02/16/22 patch Results & Data (ED) Vital Signs Vital Signs - 24 hr 03/17/22 13:09 03/17/22 13:45 03/17/22 13:32 Temperature 36.7 C Temperature Source Oral Pulse Rate 120 H 116 H 120 H Pulse Rate [Apical] Pulse Rate from SpO2 Sensor 121 H Pulse Rhythm Pulse Strength Respiratory Rate 14 14 26 H Respiratory Effort / Characteristics Non-Labored Spontaneous Respiratory Depth Shallow Normal Respiratory Pattern Regular Blood Pressure 118/79 Blood Pressure [Left Arm] Blood Pressure Mean 92 Blood Pressure Mean [Left Arm] Pulse Oximetry 99 99 99 Oxygen Delivery Method Nasal Cannula Nasal Cannula Oxygen Flow Rate 2 2 Fraction of Inspired Oxygen 24 Sepsis Recent Fever Within 48 Hours No Sepsis New/Unexplained Change in Mental Status No Sepsis Action Taken by Nursing No Action Required 03/17/22 14:00 03/17/22 14:00 03/17/22 14:30 Temperature Temperature Source Pulse Rate 115 H Pulse Rate [Apical] Pulse Rate from SpO2 Sensor 116 H Pulse Rhythm Pulse Strength Respiratory Rate 16 Respiratory Effort / Characteristics Respiratory Depth Respiratory Pattern Blood Pressure 123/76 125/81 Blood Pressure [Left Arm] Blood Pressure Mean 91 95 Blood Pressure Mean [Left Arm] Pulse Oximetry 99 Oxygen Delivery Method BiPAP Oxygen Flow Rate Fraction of Inspired Oxygen Sepsis Recent Fever Within 48 Hours Sepsis New/Unexplained Change in Mental Status Sepsis Action Taken by Nursing 03/17/22 14:30 03/17/22 15:00 03/17/22 15:00 Temperature Temperature Source Pulse Rate 118 H 113 H Pulse Rate [Apical] Pulse Rate from SpO2 Sensor 117 H 113 H Pulse Rhythm Pulse Strength Respiratory Rate 17 25 H Respiratory Effort / Characteristics Respiratory Depth Respiratory Pattern Blood Pressure 131/83 Blood Pressure [Left Arm] Blood Pressure Mean 99 Blood Pressure Mean [Left Arm] Pulse Oximetry 99 99 Oxygen Delivery Method BiPAP CPAP Oxygen Flow Rate Fraction of Inspired Oxygen Sepsis Recent Fever Within 48 Hours Sepsis New/Unexplained Change in Mental Status Sepsis Action Taken by Nursing 03/17/22 15:30 03/17/22 15:30 03/17/22 16:00 Temperature Temperature Source Pulse Rate 117 H Pulse Rate [Apical] Pulse Rate from SpO2 Sensor Pulse Rhythm Pulse Strength Respiratory Rate 20 Respiratory Effort / Characteristics Respiratory Depth Respiratory Pattern Blood Pressure 124/81 117/71 Blood Pressure [Left Arm] Blood Pressure Mean 95 86 Blood Pressure Mean [Left Arm] Pulse Oximetry Oxygen Delivery Method Oxygen Flow Rate Fraction of Inspired Oxygen Sepsis Recent Fever Within 48 Hours Sepsis New/Unexplained Change in Mental Status Sepsis Action Taken by Nursing 03/17/22 16:00 03/17/22 16:56 03/17/22 16:30 Temperature 36.7 C Temperature Source Oral Pulse Rate 132 H 120 H Pulse Rate [Apical] Pulse Rate from SpO2 Sensor 131 H Pulse Rhythm Regular Pulse Strength Normal Respiratory Rate 20 20 Respiratory Effort / Characteristics Respiratory Depth Respiratory Pattern Blood Pressure 110/76 118/72 Blood Pressure [Left Arm] Blood Pressure Mean 87 87 Blood Pressure Mean [Left Arm] Pulse Oximetry 99 98 Oxygen Delivery Method BiPAP Oxygen Flow Rate Fraction of Inspired Oxygen Sepsis Recent Fever Within 48 Hours Sepsis New/Unexplained Change in Mental Status Sepsis Action Taken by Nursing 03/17/22 16:30 03/17/22 17:15 03/17/22 17:30 Temperature 36.7 C 36.9 C Temperature Source Oral Oral Pulse Rate 130 H 123 H 116 H Pulse Rate [Apical] Pulse Rate from SpO2 Sensor 129 H Pulse Rhythm Pulse Strength Respiratory Rate 23 22 15 Respiratory Effort / Characteristics Respiratory Depth Respiratory Pattern Blood Pressure 107/74 111/74 Blood Pressure [Left Arm] Blood Pressure Mean 85 86 Blood Pressure Mean [Left Arm] Pulse Oximetry 99 99 98 Oxygen Delivery Method BiPAP Oxygen Flow Rate Fraction of Inspired Oxygen Sepsis Recent Fever Within 48 Hours Sepsis New/Unexplained Change in Mental Status Sepsis Action Taken by Nursing 03/17/22 18:00 03/17/22 18:00 03/17/22 18:31 Temperature 36.6 C Temperature Source Oral Pulse Rate 114 H Pulse Rate [Apical] 113 H Pulse Rate from SpO2 Sensor Pulse Rhythm Pulse Strength Respiratory Rate 18 17 Respiratory Effort / Characteristics Respiratory Depth Respiratory Pattern Blood Pressure 115/67 Blood Pressure [Left Arm] 102/68 Blood Pressure Mean 83 Blood Pressure Mean [Left Arm] 79 Pulse Oximetry 98 99 Oxygen Delivery Method BiPAP BiPAP Oxygen Flow Rate Fraction of Inspired Oxygen Sepsis Recent Fever Within 48 Hours Sepsis New/Unexplained Change in Mental Status Sepsis Action Taken by Nursing 03/17/22 18:59 03/17/22 19:00 Temperature 36.6 C Temperature Source Oral Pulse Rate 113 H Pulse Rate [Apical] Pulse Rate from SpO2 Sensor Pulse Rhythm Pulse Strength Respiratory Rate 19 Respiratory Effort / Characteristics Respiratory Depth Respiratory Pattern Blood Pressure 118/67 Blood Pressure [Left Arm] Blood Pressure Mean 84 Blood Pressure Mean [Left Arm] Pulse Oximetry 99 Oxygen Delivery Method BiPAP Oxygen Flow Rate Fraction of Inspired Oxygen Sepsis Recent Fever Within 48 Hours Sepsis New/Unexplained Change in Mental Status Sepsis Action Taken by Usp Medications Current Medication List: was personally reviewed by me Laboratory Data Attestation: I reviewed the patient's lab results. Result diagrams: 03/17/22 14:13 03/17/22 14:13 Lab Results 03/17/22 03/17/22 03/17/22 Range/Units 14:00 14:13 14:13 WBC (4.8-10.8) K/ul RBC (4.63-6.08) M/uL Hgb (14.0-18.0) g/dl POC Hgb (14.0-18.0) g/dl Hct (40.1-51.0) % POC Hct (42-52) % MCV (80.0-100.0) fL MCH (25.0-34.0) pg MCHC (32.0-36.0) g/dL RDW Std Deviation (36.4-46.3) fL RDW Coeff of Rosetta (11.5-14.5) % Plt Count (130-400) K/uL MPV (9.4-12.4) fL Neutrophils % (Manual) % Lymphocytes % (Manual) % Monocytes % (Manual) % Basophils % (Manual) % Metamyelocytes % (Man) % Myelocytes % (Man) % Neutrophils # (Manual) (1.4-6.5) K/uL Total Absolute Neuts (1.4-6.5) K/uL Lymphocytes # (Manual) (1.2-3.4) K/uL Total Abs Lymphocytes (1.2-3.4) K/uL Monocytes # (Manual) (0.24-0.82) K/uL Basophils # (Manual) (0-0.2) K/uL Metamyelocytes # (Man) (0-0) K/uL Myelocytes # (Manual) (0-0) K/uL Polychromasia Tear Drop Cells PT 14.0 H (9.0-12.0) Seconds INR 1.3 H (0.9-1.1) POC Sodium (135-144) mmol/L Sodium 133 L (136-145) mmol/L POC Potassium (3.3-5.0) mmol/L Potassium 3.9 (3.5-5.1) mmol/L POC Chloride (101-112) mmol/L Chloride 105 (98-107) mmol/L Carbon Dioxide 20 L (21-32) mmol/L POC Total CO2 (24-31) mmol/L Anion Gap 8 (3-11) POC Anion Gap (16-25) mmol/L POC BUN (7-18) mg/dl BUN 19 (6-23) mg/dl Creatinine 0.66 (0.6-1.4) mg/dl POC Creatinine (0.6-1.3) mg/dl Est Cr Clr Drug Dosing 98.0 ml/min Est GFR ( Amer) 116.0 ml/min Est GFR (Non-Af Amer) 100.0 ml/min BUN/Creatinine Ratio 28.8 H (10-20) Glucose 129 H (70-99(Fasting)) mg/dl POC Glucose (other) (70-99) mg/dl Calcium 8.2 L (8.5-10.1) mg/dl POC Ioniz Calcium Batsheva (1.12-1.32) mmol/l Phosphorus (2.5-4.9) mg/dl Magnesium 2.4 (1.7-2.4) mg/dl Total Bilirubin 0.6 (0.2-1.0) mg/dl AST 24 (13-39) U/L ALT 7 (7-52) U/L Alkaline Phosphatase 287 H (34-104) U/L Troponin I High Sens 9.3 (0-20) pg/ml B-Natriuretic Peptide (0-100) pg/ml Total Protein 5.9 L (6.0-8.3) gm/dl Albumin 3.3 L (3.4-5.0) gm/dl Globulin 2.6 (2.5-4.0) gm/dl Albumin/Globulin Ratio 1.3 (0.9-2) TSH (0.300-4.500) uIu/ml Urine Color Urine Appearance (Clear) Urine pH (4.5-7.5) Ur Specific [place] (1.000-1.030) Urine Protein (Negative) Urine Glucose (UA) (Negative) Urine Ketones (Negative) Urine Blood (Negative) Urine Nitrite (Negative) Urine Bilirubin (Negative) Urine Urobilinogen (Negative) Ur Leukocyte Esterase (Negative) Urine WBC (Auto) (0-5) /hpf Urine RBC (Auto) (0-4) /hpf U Hyaline Cast (Auto) (0-5) /lpf U Epithel Cells (Auto) (0-5) /lpf Urine Bacteria (Auto) (Negative) SARS-CoV-2, RNA, NAAT NEGATIVE (NEGATIVE) Blood Type Antibody Screen Crossmatch 03/17/22 03/17/22 03/17/22 Range/Units 14:13 14:13 14:13 WBC 4.97 (4.8-10.8) K/ul RBC 2.52 L (4.63-6.08) M/uL Hgb 7.0 L (14.0-18.0) g/dl POC Hgb (14.0-18.0) g/dl Hct 21.9 L (40.1-51.0) % POC Hct (42-52) % MCV 86.9 (80.0-100.0) fL MCH 27.8 (25.0-34.0) pg MCHC 32.0 (32.0-36.0) g/dL RDW Std Deviation 54.6 H (36.4-46.3) fL RDW Coeff of Rosetta 18.8 H (11.5-14.5) % Plt Count 36 L (130-400) K/uL MPV 8.8 L (9.4-12.4) fL Neutrophils % (Manual) 73 % Lymphocytes % (Manual) 13 % Monocytes % (Manual) 6 % Basophils % (Manual) 2 % Metamyelocytes % (Man) 3 % Myelocytes % (Man) 4 % Neutrophils # (Manual) 3.63 (1.4-6.5) K/uL Total Absolute Neuts 3.63 (1.4-6.5) K/uL Lymphocytes # (Manual) 0.65 L (1.2-3.4) K/uL Total Abs Lymphocytes 0.65 L (1.2-3.4) K/uL Monocytes # (Manual) 0.30 (0.24-0.82) K/uL Basophils # (Manual) 0.10 (0-0.2) K/uL Metamyelocytes # (Man) 0.15 H (0-0) K/uL Myelocytes # (Manual) 0.20 H (0-0) K/uL Polychromasia 1+ Tear Drop Cells 1+ PT (9.0-12.0) Seconds INR (0.9-1.1) POC Sodium (135-144) mmol/L Sodium (136-145) mmol/L POC Potassium (3.3-5.0) mmol/L Potassium (3.5-5.1) mmol/L POC Chloride (101-112) mmol/L Chloride (98-107) mmol/L Carbon Dioxide (21-32) mmol/L POC Total CO2 (24-31) mmol/L Anion Gap (3-11) POC Anion Gap (16-25) mmol/L POC BUN (7-18) mg/dl BUN (6-23) mg/dl Creatinine (0.6-1.4) mg/dl POC Creatinine (0.6-1.3) mg/dl Est Cr Clr Drug Dosing ml/min Est GFR ( Amer) ml/min Est GFR (Non-Af Amer) ml/min BUN/Creatinine Ratio (10-20) Glucose (70-99(Fasting)) mg/dl POC Glucose (other) (70-99) mg/dl Calcium (8.5-10.1) mg/dl POC Ioniz Calcium Batsheva (1.12-1.32) mmol/l Phosphorus (2.5-4.9) mg/dl Magnesium (1.7-2.4) mg/dl Total Bilirubin (0.2-1.0) mg/dl AST (13-39) U/L ALT (7-52) U/L Alkaline Phosphatase (34-104) U/L Troponin I High Sens (0-20) pg/ml B-Natriuretic Peptide 17 (0-100) pg/ml Total Protein (6.0-8.3) gm/dl Albumin (3.4-5.0) gm/dl Globulin (2.5-4.0) gm/dl Albumin/Globulin Ratio (0.9-2) TSH 3.040 (0.300-4.500) uIu/ml Urine Color Urine Appearance (Clear) Urine pH (4.5-7.5) Ur Specific [place] (1.000-1.030) Urine Protein (Negative) Urine Glucose (UA) (Negative) Urine Ketones (Negative) Urine Blood (Negative) Urine Nitrite (Negative) Urine Bilirubin (Negative) Urine Urobilinogen (Negative) Ur Leukocyte Esterase (Negative) Urine WBC (Auto) (0-5) /hpf Urine RBC (Auto) (0-4) /hpf U Hyaline Cast (Auto) (0-5) /lpf U Epithel Cells (Auto) (0-5) /lpf Urine Bacteria (Auto) (Negative) SARS-CoV-2, RNA, NAAT (NEGATIVE) Blood Type Antibody Screen Crossmatch 03/17/22 03/17/22 03/17/22 Range/Units 14:13 14:21 14:53 WBC (4.8-10.8) K/ul RBC (4.63-6.08) M/uL Hgb (14.0-18.0) g/dl POC Hgb 8.2 L (14.0-18.0) g/dl Hct (40.1-51.0) % POC Hct 24 L (42-52) % MCV (80.0-100.0) fL MCH (25.0-34.0) pg MCHC (32.0-36.0) g/dL RDW Std Deviation (36.4-46.3) fL RDW Coeff of Rosetta (11.5-14.5) % Plt Count (130-400) K/uL MPV (9.4-12.4) fL Neutrophils % (Manual) % Lymphocytes % (Manual) % Monocytes % (Manual) % Basophils % (Manual) % Metamyelocytes % (Man) % Myelocytes % (Man) % Neutrophils # (Manual) (1.4-6.5) K/uL Total Absolute Neuts (1.4-6.5) K/uL Lymphocytes # (Manual) (1.2-3.4) K/uL Total Abs Lymphocytes (1.2-3.4) K/uL Monocytes # (Manual) (0.24-0.82) K/uL Basophils # (Manual) (0-0.2) K/uL Metamyelocytes # (Man) (0-0) K/uL Myelocytes # (Manual) (0-0) K/uL Polychromasia Tear Drop Cells PT (9.0-12.0) Seconds INR (0.9-1.1) POC Sodium 134 L (135-144) mmol/L Sodium (136-145) mmol/L POC Potassium 3.9 (3.3-5.0) mmol/L Potassium (3.5-5.1) mmol/L POC Chloride 106 (101-112) mmol/L Chloride (98-107) mmol/L Carbon Dioxide (21-32) mmol/L POC Total CO2 20 L (24-31) mmol/L Anion Gap (3-11) POC Anion Gap 14.0 L (16-25) mmol/L POC BUN 16 (7-18) mg/dl BUN (6-23) mg/dl Creatinine (0.6-1.4) mg/dl POC Creatinine 0.6 (0.6-1.3) mg/dl Est Cr Clr Drug Dosing ml/min Est GFR ( Amer) ml/min Est GFR (Non-Af Amer) ml/min BUN/Creatinine Ratio (10-20) Glucose (70-99(Fasting)) mg/dl POC Glucose (other) 137 H (70-99) mg/dl Calcium (8.5-10.1) mg/dl POC Ioniz Calcium Batsheva 1.08 L (1.12-1.32) mmol/l Phosphorus < 1.0 L* (2.5-4.9) mg/dl Magnesium (1.7-2.4) mg/dl Total Bilirubin (0.2-1.0) mg/dl AST (13-39) U/L ALT (7-52) U/L Alkaline Phosphatase (34-104) U/L Troponin I High Sens (0-20) pg/ml B-Natriuretic Peptide (0-100) pg/ml Total Protein (6.0-8.3) gm/dl Albumin (3.4-5.0) gm/dl Globulin (2.5-4.0) gm/dl Albumin/Globulin Ratio (0.9-2) TSH (0.300-4.500) uIu/ml Urine Color Urine Appearance (Clear) Urine pH (4.5-7.5) Ur Specific [place] (1.000-1.030) Urine Protein (Negative) Urine Glucose (UA) (Negative) Urine Ketones (Negative) Urine Blood (Negative) Urine Nitrite (Negative) Urine Bilirubin (Negative) Urine Urobilinogen (Negative) Ur Leukocyte Esterase (Negative) Urine WBC (Auto) (0-5) /hpf Urine RBC (Auto) (0-4) /hpf U Hyaline Cast (Auto) (0-5) /lpf U Epithel Cells (Auto) (0-5) /lpf Urine Bacteria (Auto) (Negative) SARS-CoV-2, RNA, NAAT (NEGATIVE) Blood Type O Positive Antibody Screen NEGATIVE Crossmatch See Detail 03/17/22 Range/Units 15:30 WBC (4.8-10.8) K/ul RBC (4.63-6.08) M/uL Hgb (14.0-18.0) g/dl POC Hgb (14.0-18.0) g/dl Hct (40.1-51.0) % POC Hct (42-52) % MCV (80.0-100.0) fL MCH (25.0-34.0) pg MCHC (32.0-36.0) g/dL RDW Std Deviation (36.4-46.3) fL RDW Coeff of Rosetta (11.5-14.5) % Plt Count (130-400) K/uL MPV (9.4-12.4) fL Neutrophils % (Manual) % Lymphocytes % (Manual) % Monocytes % (Manual) % Basophils % (Manual) % Metamyelocytes % (Man) % Myelocytes % (Man) % Neutrophils # (Manual) (1.4-6.5) K/uL Total Absolute Neuts (1.4-6.5) K/uL Lymphocytes # (Manual) (1.2-3.4) K/uL Total Abs Lymphocytes (1.2-3.4) K/uL Monocytes # (Manual) (0.24-0.82) K/uL Basophils # (Manual) (0-0.2) K/uL Metamyelocytes # (Man) (0-0) K/uL Myelocytes # (Manual) (0-0) K/uL Polychromasia Tear Drop Cells PT (9.0-12.0) Seconds INR (0.9-1.1) POC Sodium (135-144) mmol/L Sodium (136-145) mmol/L POC Potassium (3.3-5.0) mmol/L Potassium (3.5-5.1) mmol/L POC Chloride (101-112) mmol/L Chloride (98-107) mmol/L Carbon Dioxide (21-32) mmol/L POC Total CO2 (24-31) mmol/L Anion Gap (3-11) POC Anion Gap (16-25) mmol/L POC BUN (7-18) mg/dl BUN (6-23) mg/dl Creatinine (0.6-1.4) mg/dl POC Creatinine (0.6-1.3) mg/dl Est Cr Clr Drug Dosing ml/min Est GFR ( Amer) ml/min Est GFR (Non-Af Amer) ml/min BUN/Creatinine Ratio (10-20) Glucose (70-99(Fasting)) mg/dl POC Glucose (other) (70-99) mg/dl Calcium (8.5-10.1) mg/dl POC Ioniz Calcium Batsheva (1.12-1.32) mmol/l Phosphorus (2.5-4.9) mg/dl Magnesium (1.7-2.4) mg/dl Total Bilirubin (0.2-1.0) mg/dl AST (13-39) U/L ALT (7-52) U/L Alkaline Phosphatase (34-104) U/L Troponin I High Sens (0-20) pg/ml B-Natriuretic Peptide (0-100) pg/ml Total Protein (6.0-8.3) gm/dl Albumin (3.4-5.0) gm/dl Globulin (2.5-4.0) gm/dl Albumin/Globulin Ratio (0.9-2) TSH (0.300-4.500) uIu/ml Urine Color Yellow Urine Appearance Clear (Clear) Urine pH 5.5 (4.5-7.5) Ur Specific [place] 1.035 H (1.000-1.030) Urine Protein Trace H (Negative) Urine Glucose (UA) Negative (Negative) Urine Ketones Negative (Negative) Urine Blood Negative (Negative) Urine Nitrite Negative (Negative) Urine Bilirubin Negative (Negative) Urine Urobilinogen Negative (Negative) Ur Leukocyte Esterase Negative (Negative) Urine WBC (Auto) 1-5 (0-5) /hpf Urine RBC (Auto) 0-4 (0-4) /hpf U Hyaline Cast (Auto) 1-5 (0-5) /lpf U Epithel Cells (Auto) 10-20 H (0-5) /lpf Urine Bacteria (Auto) Negative (Negative) SARS-CoV-2, RNA, NAAT (NEGATIVE) Blood Type Antibody Screen Crossmatch Administered Medications Sodium Phosphate 21 mmol/ (Sodium Chloride) 507 mls @ 88 mls/hr IV ONE ONE Stop: 03/17/22 22:45 Last Admin: 03/17/22 17:33 Dose: 88 mls/hr Documented By: CELIA Discontinued Medications Furosemide (Furosemide 40 Mg/4 Ml Vial) 40 mg IV ONE ONE Stop: 03/17/22 14:44 Last Admin: 03/17/22 15:17 Dose: 40 mg Documented By: CELIA Hydromorphone HCl (Hydromorphone Inj 0.5 Mg/0.5 Ml Syr) 0.25 mg IV NOW STA Stop: 03/17/22 15:03 Last Admin: 03/17/22 15:27 Dose: 0.25 mg Documented By: BIMAL Potassium Chloride (K Ian / Wtr) 10 meq in 100 mls @ 100 mls/hr IV Q1H LINA; Protocol Stop: 03/17/22 16:44 Last Infusion: 03/17/22 17:25 Dose: 0 mls/hr Documented By: Admin: 03/17/22 16:25 Dose: 100 mls/hr Documented By: Infusion: 03/17/22 16:21 Dose: 0 mls/hr Documented By: Admin: 03/17/22 15:21 Dose: 100 mls/hr Documented By: CELIA Calcium Gluconate () 1,000 mg in 60 mls @ 240 mls/hr IV NOW STA Stop: 03/17/22 15:16 Last Infusion: 03/17/22 15:41 Dose: 0 mls/hr Documented By: Admin: 03/17/22 15:27 Dose: 240 mls/hr Documented By: BIMAL Ioversol (Optiray 320 125ml) 120 ml IV ONCE ONE Stop: 03/17/22 14:51 Last Admin: 03/17/22 14:42 Dose: 120 ml Documented By: SALOMÓN Imaging Data Radiologist's Impression: Chest X-Ray 03/17/22 13:35 XR chest 1V portable HISTORY: 66 years-old Male SOB, h/o L sided pleural, likely recurrent acute shortness of breath COMPARISON: Chest radiograph 03/06/2022, CTA chest 03/05/2022. TECHNIQUE: AP view of the chest FINDINGS: The cardiac silhouette is enlarged. Pulmonary vascular congestion. Patient's chin partially obscures the lung apices. Extensive metastatic disease redemonstrated which includes pulmonary, lymphatic and osseous disease. Moderate left pleural effusion with progressively worsened left basilar consolidation. IMPRESSION: 1. Left pleural effusion with progressively worsened left basilar consolidation. 2. Cardiomegaly with pulmonary vascular congestion. 3. Extensive metastatic disease redemonstrated. ACT 112: Negative or not required by law. The above report was generated using voice recognition software. It may contain grammatical, syntax or spelling errors. Electronically signed by: Catrachito Mayes M.D. 03/17/2022 2:04 PM Chest CTA 03/17/22 14:23 CHEST CTA for PULMONARY ARTERIES CT DOSE: 356.71 mGy.cm HISTORY: Shortness of breath. TECHNIQUE: Multiaxial CT images of the chest were performed following the intravenous administration of contrast to evaluate the pulmonary arteries. Maximal intensity projection images were also obtained. A dose lowering technique was utilized adhering to the principles of ALARA. COMPARISON STUDY: Chest CTA 03/05/2022. FINDINGS: No pneumothorax. A moderate to large left pleural effusion has slightly increased in size. Normal caliber thoracic aorta with no evidence for dissection. The heart is normal in size. Trace pericardial effusion is noted. Bulky mediastinal and left hilar lymphadenopathy is again noted. This results in significant mass effect within the distal left main pulmonary artery and the left proximal pulmonary arteries with near complete compression/occlusion of the proximal lingular segmental pulmonary artery. The mass effect along the left central pulmonary arteries has progressed in the interval. However, no filling defects within the pulmonary arteries to suggest a pulmonary embolus. No evidence for right-sided heart strain. Multiple scattered bilateral pulmonary nodules consistent with metastatic disease are again noted. These are similar to the prior study. A bulky left hilar lymphadenopathy has slightly progressed. No pneumothorax. Masslike area of consolidation within the right lung apex with adjacent interstitial thickening consistent with lymphangitic spread of tumor is again noted. Groundglass densities within the left lower lobe posteriorly and medial aspect of the left upper lobe remain unchanged. This may represent abnormal venous return due to the mass effect from the bulky mediastinal lymphadenopathy. Otherwise, no new focal lung consolidations identified. Extensive osteoblastic metastatic disease is again noted with a few scattered soft tissue components. Dominant left peristernal lesion is again noted and measures approximately 6.8 cm. Scattered areas of epidural involvement within the thoracic spine have slightly progressed. However, no significant central canal narrowing. This most mass within the lower thoracic spine. Limited views of the upper abdomen demonstrate normal liver, spleen, and adrenal glands. Left pleural metastatic disease is again noted. IMPRESSION: 1. No evidence for pulmonary embolus. 2. Severe compression of the left central pulmonary arteries due to the bulky mediastinal/hilar lymphadenopathy. This includes a short segment of near complete compression/occlusion of the left lingular segmental pulmonary artery. 3. Extensive metastatic disease seen throughout the chest as described above which has slightly progressed. 4. Moderate to large left pleural effusion has also slightly progressed. ACT 112: Negative or not required by law. Electronically signed by: Jin Kumar M.D. 03/17/2022 3:39 PM Discharge Plan Visit Data Chief Complaint: Illness Stated Complaint: WEAKNESS,SOB ED Provider: Bam Howard Discharge Problem: Acute hypoxemic respiratory failure, Malignant pleural effusion, Prostate cancer metastatic to bone, Thrombocytopenia, Dyspnea, Anemia Discharge Instructions Interventions: ED Discharge Assessment Last Done: 03/17/22 18:59 Forms Stand Alone Forms: [facility] [employer] Prescriptions Prescriptions: No Action alprazolam [Xanax] 0.5 mg tablet 0.5 mg PO HS PRN (Reason: Anxiety) acetaminophen [Tylenol Extra Strength] 500 mg tablet 500 mg PO Q6H PRN (Reason: Unknown) apalutamide 60 mg tablet 240 mg PO DAILY potassium phosphate, monobasic 500 mg tablet,soluble 1,000 mg PO TID calcium carbonate-vitamin D3 600 mg-10 mcg (400 unit) tablet,chewable 2 tab PO QID pravastatin 20 mg tablet 20 mg PO DAILY naloxone 4 mg/actuation spray,non-aerosol 1 spray intranasal Q3M PRN (Reason: opioid overdose) Qty: 2 0RF Rx Instructions: administer 1 dose into ONE nostril; alternate nostrils w each dose until assistance arrives prednisone 20 mg tablet 40 mg PO .COMPLEX Qty: 40 1RF Rx Instructions: 40 mg PO Use 2 tabs daily x 3 days starting the day prior to Firmagon injection; ibuprofen 800 mg tablet 800 mg PO Q8H PRN (Reason: pain) Qty: 30 2RF fentanyl 37.5 mcg/hour patch 72 hour 1 patch transdermal Q72H Qty: 10 0RF omeprazole 20 mg capsule,delayed release(DR/EC) 20 mg PO DAILY oxycodone 10 mg tablet 10 mg PO QID PRN (Reason: Pain) paroxetine HCl 10 mg tablet 10 mg PO QAM Referrals Referrals: Pramod Whipple DO [Primary Care Provider] -
--- NOTE | 2022-03-17 14:05 | XRay Report ---
XR chest 1V portable HISTORY: 66 years-old Male SOB, h/o L sided pleural, likely recurrent acute shortness of breath COMPARISON: Chest radiograph 03/06/2022, CTA chest 03/05/2022. TECHNIQUE: AP view of the chest FINDINGS: The cardiac silhouette is enlarged. Pulmonary vascular congestion. Patient's chin partially obscures the lung apices. Extensive metastatic disease redemonstrated which includes pulmonary, lymphatic and osseous disease. Moderate left pleural effusion with progressively worsened left basilar consolidatio n. IMPRESSION: 1. Left pleural effusion with progressively worsened left basilar consolidation. 2. Cardiomegaly with pulmonary vascular congestion. 3. Extensive metastatic disease redemonstrated. ACT 112: Negative or not required by law. The above report was generated using voice recognition software. It may contain grammatical, syntax o r spelling errors. Electronically signed by: Catrachito Mayes M.D. 03/17/2022 2:04 PM
[2022-03-17 14:34] LABS: iSTAT Creatinine 0.6 mg/dl (0.6-1.3); iSTAT Hemoglobin 8.2 g/dl (14.0-18.0); iSTAT Ionized Calcium 1.08 mmol/l (1.12-1.32); iSTAT Potassium 3.9 mmol/L (3.3-5.0)
[2022-03-17 14:36] LABS: Hematocrit (blood only) 21.9 % (40.1-51.0); Mean Platelet Volume 8.8 fL (9.4-12.4); Platelet Count 36 K/uL (130-400); White Blood Count 4.97 K/ul (4.8-10.8)
[2022-03-17] MEDS ORDERED: SODIUM CHLORIDE 0.9% 250 ML IV PRN (14:43)
[2022-03-17] MEDS ORDERED: FUROSEMIDE 40 MG/4 ML VIAL IV ONE (14:43)
[2022-03-17 14:45] LABS: INR 1.3 (0.9-1.1)
[2022-03-17] MEDS ORDERED: OPTIRAY 320 125ml IV ONE (14:50)
[2022-03-17 14:58] LABS: Albumin Globulin Ratio 1.3 (0.9-2); Albumin Level 3.3 gm/dl (3.4-5.0); BUN Creatinine Ratio 28.8 (10-20); Bilirubin,Total 0.6 mg/dl (0.2-1.0); Calcium 8.2 mg/dl (8.5-10.1); Globulin 2.6 gm/dl (2.5-4.0); Magnesium 2.4 mg/dl (1.7-2.4); Potassium 3.9 mmol/L (3.5-5.1); Total Protein 5.9 gm/dl (6.0-8.3)
[2022-03-17 15:00] LABS: Troponin I High Sensitivity 9.3 pg/ml (0-20)
[2022-03-17] MEDS ORDERED: HYDROmorphone INJ 0.5 MG/0.5 ML SYR IV STA (15:02)
[2022-03-17] MEDS ORDERED: CALCIUM GLUCONATE 1,000 MG/60 ML BAG IV STA (15:02)
[2022-03-17 15:21] LABS: ALC (manual) 0.65 K/uL (1.2-3.4); ANC (manual) 3.63 K/uL (1.4-6.5); Basophils % (manual) 2 %; Lymphocytes # (manual) 0.65 K/uL (1.2-3.4); Lymphocytes % (manual) 13 %; Mean Corpuscular Hemoglobin 27.8 pg (25.0-34.0); Mean Corpuscular Volume 86.9 fL (80.0-100.0); Metamyelocytes # (manual) 0.15 K/uL (0-0); Metamyelocytes % (manual) 3 %; Monocytes % (manual) 6 %; Myelocytes % (manual) 4 %; Neutrophils # (manual) 3.63 K/uL (1.4-6.5); Neutrophils % (manual) 73 %; Polychromasia 1+; RDW Coefficient of Variation 18.8 % (11.5-14.5); RDW Standard Deviation 54.6 fL (36.4-46.3); Red Blood Count 2.52 M/uL (4.63-6.08); Tear Drop Cells 1+
[2022-03-17] MEDS: POTASSIUM CHLORIDE / WTR 10 MEQ/100 ML PLCT IV SCH ×2 (15:21→16:25)
--- NOTE | 2022-03-17 15:40 | CT Scan Report ---
CHEST CTA for PULMONARY ARTERIES CT DOSE: 356.71 mGy.cm HISTORY: Shortness of breath. TECHNIQUE: Multiaxial CT images of the chest were performed following the intravenous administration of contrast to evaluate the pulmonary arteries. Maximal intensity projection images were also obtaine d. A dose lowering technique was utilized adhering to the principles of ALARA. COMPARISON STUDY: Chest CTA 03/05/2022. FINDINGS: No pneumothorax. A moderate to large left pleural effusion has slightly increased in size. Normal caliber thoracic aorta with no evidence for dissection. The heart is normal in size. Trace per icardial effusion is noted. Bulky mediastinal and left hilar lymphadenopathy is again noted. This res ults in significant mass effect within the distal left main pulmonary artery and the left proximal pu lmonary arteries with near complete compression/occlusion of the proximal lingular segmental pulmonar y artery. The mass effect along the left central pulmonary arteries has progressed in the interval. H owever, no filling defects within the pulmonary arteries to suggest a pulmonary embolus. No evidence for right-sided heart strain. Multiple scattered bilateral pulmonary nodules consistent with metastat ic disease are again noted. These are similar to the prior study. A bulky left hilar lymphadenopathy has slightly progressed. No pneumothorax. Masslike area of consolidation within the right lung apex w ith adjacent interstitial thickening consistent with lymphangitic spread of tumor is again noted. Elizabeth undglass densities within the left lower lobe posteriorly and medial aspect of the left upper lobe re main unchanged. This may represent abnormal venous return due to the mass effect from the bulky media stinal lymphadenopathy. Otherwise, no new focal lung consolidations identified. Extensive osteoblasti c metastatic disease is again noted with a few scattered soft tissue components. Dominant left perist ernal lesion is again noted and measures approximately 6.8 cm. Scattered areas of epidural involvemen t within the thoracic spine have slightly progressed. However, no significant central canal narrowing . This most mass within the lower thoracic spine. Limited views of the upper abdomen demonstrate norm al liver, spleen, and adrenal glands. Left pleural metastatic disease is again noted. IMPRESSION: 1. No evidence for pulmonary embolus. 2. Severe compression of the left central pulmonary arteries due to the bulky mediastinal/hilar lymph adenopathy. This includes a short segment of near complete compression/occlusion of the left lingular segmental pulmonary artery. 3. Extensive metastatic disease seen throughout the chest as described above which has slightly progr essed. 4. Moderate to large left pleural effusion has also slightly progressed. ACT 112: Negative or not required by law. Electronically signed by: Jin Kumar M.D. 03/17/2022 3:39 PM
--- NOTE | 2022-03-17 15:46 | History & Physical Report ---
Date of Service March 17, 2022 Assessment & Plan (1) Prostate cancer metastatic to bone: (2) Metastatic cancer to lung: (3) Anemia: (4) Thrombocytopenia: (5) Pleural effusion: (6) Goals of care, counseling/discussion: (7) Hypocalcemia: (8) Hypophosphatemia: Plan This is a 66-year-old male who has a significant past medical history of metastatic prostate cancer to bone and lung, left chest wall mass status postbiopsy noted for high-grade adenocarcinoma likely not due to prostate, significant progressive anemia and thrombocytopenia likely due to bone marrow invasion in setting of metastatic disease, HLD, IGNACIO, hypophosphatemia who presents to ED secondary to shortness of breath x4 days. Mr Rivers overall has a very poor prognosis and this was discussed with him in depth at bedside along with Dr. Vivar. He has metastatic prostate cancer to bone, lung, recurrent malignant pleural effusion, left chest wall mass recently biopsied revealing high-grade adenocarcinoma, evidence of likely bone marrow invasion in setting of progressive anemia and thrombocytopenia, and now with evidence on CTA of severe compression of left central pulmonary arteries due to bulky mediastinal and hilar adenopathy. He was seen by his oncology team today, Dr. Lam. Patient is not a candidate for any further systemic or palliative chemotherapy due to advanced stage of malignancy. After lengthy discussion with patient, although initially hesitant, has decided and agreed on DNR/DNI resuscitation status. He has discussed hospice with his oncologist, but has not explored options. He is agreeable to hospice services and I have reached out to case management to work on this for this patient. Overall prognosis remains very poor and goal for this patient is comfort. Will admit to PCU overnight and can likely transition to medical tomorrow when hospice established Will ask our pulmonary colleagues to see patient to determine possible benefit of Pleurx cath Continue meds for now Consult case management to arrange hospice services for patient Patient ordered to be transfused 1 unit PRBC given anemia Calcium & potassium replaced Phosphorus critically low, will replace with 21 mmol x 1 now Once patient decides on formal hospice services can discuss discontinuing lab draws and unessential meds will continue oxygen and bipap support for now for comfort repeat h/h and phos at 2200 DVT ppx: SCDS given anemia, thrombocytopenia Dispo: PCU for now, consult CM to discuss and arrange hospice services, possible need to transition to inpatient hospice if pt rapidly deteriorates DNR/DNI PCP:Sole Pt was seen and examined in collaboration with Dr. Vivar, please see addendum History of Present Illness Chief Complaint: SOB x 4 days. Primary Care Provider: Pramod Whipple DO This is a 66-year-old male who has a significant past medical history of metastatic prostate cancer to bone and lung, left chest wall mass status postbiopsy noted for high-grade adenocarcinoma likely not due to prostate, significant progressive anemia and thrombocytopenia likely due to bone marrow invasion in setting of metastatic disease, HLD, IGNACIO, hypophosphatemia who presents to ED secondary to shortness of breath x4 days. Of significance patient was initially seen in heme-onc office prior to eval in ED. Upon arrival to office he was found to be hypoxic around 85% on room air with improvement to 100% on 2 L. There was also concern for lower extremity swelling and possible DVT. It was recommended he seek ED for further evaluation. It was also discussed with the patient and neighbor who was there with him in clinic that he was not a candidate for any kind of systemic treatment for prostate cancer. It was also discussed that recent biopsy from his left chest wall mass likely raises the possibility of a lower GI malignancy. A CEA level was drawn today and is pending. It is felt that they will not proceed with any further chemotherapy and overall prognosis is very poor. Hospice was discussed with patient in clinic. He states overall his SOB started about 4 days ago. He further complains of dry cough, shortness of breath with exertion and increased swelling to lower legs for past 2 days. He denies any fever, chills, sweats, lightheadedness, dizziness, chest pain, palpitations, hemoptysis, nausea, vomiting, abdominal pain, change in bowel or urinary habits. In ED patient was saturating well on 2 L of oxygen however did appear to be tachypneic. He was placed on BiPAP which made his breathing improved. Lab work notable for progressive anemia with hemoglobin of 7.0 hematocrit 21.9, platelet 36, sodium 133, glucose 129 and SARS-CoV-[address] revealed no evidence for PE however did reveal severe compression of the left central pulmonary artery due to bulky mediastinal and hilar adenopathy. Extensive metastatic disease seen throughout the chest with a moderate to large left pleural effusion progressing. Allergies Allergy/AdvReac Type Severity Reaction Status Date / Time No Known Allergies Allergy Mild Verified 03/05/22 03:10 Home Medications Medication Instructions Recorded Confirmed Type acetaminophen 500 mg tablet 500 mg PO Q6H PRN Unknown 01/06/22 03/17/22 History (Tylenol Extra Strength) alprazolam 0.5 mg tablet (Xanax) 0.5 mg PO HS PRN Anxiety 01/06/22 03/17/22 History apalutamide 60 mg tablet 240 mg PO DAILY 01/06/22 03/17/22 History calcium carbonate 600 mg-vitamin 2 tab PO QID 01/06/22 03/17/22 History D3 10 mcg (400 unit) chewable tablet naloxone 4 mg/actuation nasal spray 1 spray intranasal Q3M PRN opioid 01/06/22 03/17/22 Rx overdose #2 ea potassium phosphate, monobasic 500 1,000 mg PO TID 01/06/22 03/17/22 History mg soluble tablet pravastatin 20 mg tablet 20 mg PO DAILY 01/06/22 03/17/22 History omeprazole 20 mg capsule,delayed 20 mg PO DAILY 01/18/22 03/17/22 History release ibuprofen 800 mg tablet 800 mg PO Q8H PRN pain #30 tabs 02/01/22 03/17/22 Rx prednisone 20 mg tablet 40 mg PO .COMPLEX #40 tabs 02/01/22 03/17/22 Rx fentanyl 37.5 mcg/hour transdermal 1 patch transdermal Q72H #10 ea 02/16/22 03/17/22 Rx patch oxycodone 10 mg tablet 10 mg PO QID PRN Pain 03/05/22 03/17/22 History paroxetine HCl 10 mg tablet 10 mg PO QAM 03/05/22 03/17/22 History Past Med/Surg History Medical History Adult hypophosphatasia Degenerative disc disease Goals of care, counseling/discussion Hearing loss Hip pain, acute Hyperlipidemia Intractable pain Lumbar spinal stenosis Mass of colon with enlarged lymph nodes Metastatic disease Pleural effusion Prostate cancer Prostate cancer metastatic to bone Renal colic on right side Tinnitus Surgical History History of appendectomy History of colonoscopy History of tonsillectomy Family History Other Cancer Colorectal cancer Heart disease Lung disease Social History Smoking Status: Never smoker Second Hand Exposure: No; Hx Alcohol Use: No Hx Substance Use: No Preferred Language: [place]ese Communication Ability: Effective Die Sinker Required: No Beliefs That Will Affect Care: None marital status: Single Current Living Situation: Family Feels Safe at Home: Yes Assistive Devices: Walker Review of Systems Review of Systems: All systems reviewed & are unremarkable except as noted in HPI & below Physical Exam Physical Exam: Constitutional: Chronically ill-appearing male on BiPAP, pale, WD/WN, vitals as above, sitting up in bed, pleasant, answers questions appropriately Head: Normocephalic, Atraumatic Eyes: PERRL, conjunctivae normal, anicteric sclerae ENMT: external ear and nose normal, oropharynx normal Neck: trachea midline, no thyromegaly normal visual inspection Respiratory: On BiPAP, increased respiratory effort, lungs diminished b/l, absent LLL, no wheeze, rales, rhonchi. no accessory muscle use Cardiovascular: RRR, no murmur, +1 lower ext edema b/l Vessels: no JVD or carotid bruit Chest: large parasternal LCW mass, firm, non mobile Abdomen: normal bowel sounds, soft, nontender, no hepatosplenomegaly Musculoskeletal: no cyanosis or clubbing, arom x 4 Skin: no rashes, warm and dry normal turgor Neurologic: PERRL, EOMI, accommodation nl, no face palsy, no dysarthria CN's II-XI intact bilaterally grossly and moves all extremities Psychiatric: A+Ox3, euthymic affect : deferred Results & Data Results & Data ([facility]) Vital Signs (Past 12 Hours) Vital Signs Temp Pulse Resp BP Pulse Ox O2 Del Method O2 Flow Rate 03/17/22 14:00 115 H 16 99 BiPAP 03/17/22 14:00 123/76 03/17/22 13:32 120 H 26 H 99 Nasal Cannula 2 03/17/22 13:45 116 H 14 99 03/17/22 13:09 36.7 C 120 H 14 118/79 99 Nasal Cannula 2 FiO2 03/17/22 14:00 03/17/22 14:00 03/17/22 13:32 03/17/22 13:45 24 03/17/22 13:09 Diagnostic Findings Chest X-Ray 03/17/22 13:35 XR chest 1V portable HISTORY: 66 years-old Male SOB, h/o L sided pleural, likely recurrent acute shortness of breath COMPARISON: Chest radiograph 03/06/2022, CTA chest 03/05/2022. TECHNIQUE: AP view of the chest FINDINGS: The cardiac silhouette is enlarged. Pulmonary vascular congestion. Patient's chin partially obscures the lung apices. Extensive metastatic disease redemonstrated which includes pulmonary, lymphatic and osseous disease. Moderate left pleural effusion with progressively worsened left basilar consolidation. IMPRESSION: 1. Left pleural effusion with progressively worsened left basilar consolidation. 2. Cardiomegaly with pulmonary vascular congestion. 3. Extensive metastatic disease redemonstrated. ACT 112: Negative or not required by law. The above report was generated using voice recognition software. It may contain grammatical, syntax or spelling errors. Electronically signed by: Catrachito Mayes M.D. 03/17/2022 2:04 PM Chest CTA 03/17/22 14:23 CHEST CTA for PULMONARY ARTERIES CT DOSE: 356.71 mGy.cm HISTORY: Shortness of breath. TECHNIQUE: Multiaxial CT images of the chest were performed following the intravenous administration of contrast to evaluate the pulmonary arteries. Maximal intensity projection images were also obtained. A dose lowering technique was utilized adhering to the principles of ALARA. COMPARISON STUDY: Chest CTA 03/05/2022. FINDINGS: No pneumothorax. A moderate to large left pleural effusion has slightly increased in size. Normal caliber thoracic aorta with no evidence for dissection. The heart is normal in size. Trace pericardial effusion is noted. Bulky mediastinal and left hilar lymphadenopathy is again noted. This results in significant mass effect within the distal left main pulmonary artery and the left proximal pulmonary arteries with near complete compression/occlusion of the proximal lingular segmental pulmonary artery. The mass effect along the left central pulmonary arteries has progressed in the interval. However, no filling defects within the pulmonary arteries to suggest a pulmonary embolus. No evidence for right-sided heart strain. Multiple scattered bilateral pulmonary nodules consistent with metastatic disease are again noted. These are similar to the prior study. A bulky left hilar lymphadenopathy has slightly progressed. No pneumothorax. Masslike area of consolidation within the right lung apex with adjacent interstitial thickening consistent with lymphangitic spread of tumor is again noted. Groundglass densities within the left lower lobe posteriorly and medial aspect of the left upper lobe remain unchanged. This may represent abnormal venous return due to the mass effect from the bulky mediastinal lymphadenopathy. Otherwise, no new focal lung consolidations identified. Extensive osteoblastic metastatic disease is again noted with a few scattered soft tissue components. Dominant left peristernal lesion is again noted and measures approximately 6.8 cm. Scattered areas of epidural involvement within the thoracic spine have slightly progressed. However, no significant central canal narrowing. This most mass within the lower thoracic spine. Limited views of the upper abdomen demonstrate normal liver, spleen, and adrenal glands. Left pleural metastatic disease is again noted. IMPRESSION: 1. No evidence for pulmonary embolus. 2. Severe compression of the left central pulmonary arteries due to the bulky mediastinal/hilar lymphadenopathy. This includes a short segment of near complete compression/occlusion of the left lingular segmental pulmonary artery. 3. Extensive metastatic disease seen throughout the chest as described above which has slightly progressed. 4. Moderate to large left pleural effusion has also slightly progressed. ACT 112: Negative or not required by law. Electronically signed by: Jin Kumar M.D. 03/17/2022 3:39 PM Medications Administered Medication List Potassium Chloride (K Ian / Wtr) 10 meq in 100 mls @ 100 mls/hr IV Q1H LINA; Protocol Stop: 03/17/22 16:44 Last Admin: 03/17/22 15:21 Dose: 100 mls/hr Documented By: CELIA Discontinued Medications Furosemide (Furosemide 40 Mg/4 Ml Vial) 40 mg IV ONE ONE Stop: 03/17/22 14:44 Last Admin: 03/17/22 15:17 Dose: 40 mg Documented By: CELIA Hydromorphone HCl (Hydromorphone Inj 0.5 Mg/0.5 Ml Syr) 0.25 mg IV NOW STA Stop: 03/17/22 15:03 Last Admin: 03/17/22 15:27 Dose: 0.25 mg Documented By: BIMAL Calcium Gluconate () 1,000 mg in 60 mls @ 240 mls/hr IV NOW STA Stop: 03/17/22 15:16 Last Infusion: 03/17/22 15:41 Dose: 0 mls/hr Documented By: Admin: 03/17/22 15:27 Dose: 240 mls/hr Documented By: BIMAL Ioversol (Optiray 320 125ml) 120 ml IV ONCE ONE Stop: 03/17/22 14:51 Last Admin: 03/17/22 14:42 Dose: 120 ml Documented By: SALOMÓN ECG Rate (beats per minute): 114 Rhythm: sinus tachycardia COVID-19 Results Results COVID-19 Adm Lab Results: RBC 2.52 M/uL (4.63-6.08) L 03/17/22 WBC 4.97 K/ul (4.8-10.8) 03/17/22 Hgb 7.0 g/dl (14.0-18.0) L 03/17/22 Hct 21.9 % (40.1-51.0) L 03/17/22 Plt Count 36 K/uL (130-400) L 03/17/22 ANC 3.63 K/uL (1.4-6.5) 03/17/22 ALC 0.65 K/uL (1.2-3.4) L 03/17/22 Neutrophils % (Manual) 73 % 03/17/22 Lymphocytes % (Manual) 13 % 03/17/22 Monocytes % (Manual) 6 % 03/17/22 Basophils % (Manual) 2 % 03/17/22 Metamyelocytes % (manual) 3 % 03/17/22 Myelocytes % (Manual) 4 % 03/17/22 Neutrophils # (Manual) 3.63 K/uL (1.4-6.5) 03/17/22 Lymphocytes # (Manual) 0.65 K/uL (1.2-3.4) L 03/17/22 Monocytes # (Manual) 0.30 K/uL (0.24-0.82) 03/17/22 Basophils # (Manual) 0.10 K/uL (0-0.2) 03/17/22 Metamyelocytes # (Manual) 0.15 K/uL (0-0) H 03/17/22 Myelocytes # (Manual) 0.20 K/uL (0-0) H 03/17/22 Polychromasia 1+ 03/17/22 Tear Drop Cells 1+ 03/17/22 Na 133 mmol/L (136-145) L 03/17/22 K 3.9 mmol/L (3.5-5.1) 03/17/22 Cl 105 mmol/L (98-107) 03/17/22 CO2 20 mmol/L (21-32) L 03/17/22 Anion Gap 8 (3-11) 03/17/22 BUN 19 mg/dl (6-23) 03/17/22 Creatinine 0.66 mg/dl (0.6-1.4) 03/17/22 BUN/Creatinine Ratio 28.8 (10-20) H 03/17/22 Glucose Level 129 mg/dl (70-99(Fasting)) H 03/17/22 Ca 8.2 mg/dl (8.5-10.1) L 03/17/22 Phosphorus Level < 1.0 mg/dl (2.5-4.9) L* 03/17/22 Total Bilirubin 0.6 mg/dl (0.2-1.0) 03/17/22 AST/SGOT 24 U/L (13-39) 03/17/22 ALT/SGPT 7 U/L (7-52) 03/17/22 Alkaline Phosphatase 287 U/L (34-104) H 03/17/22 Total Protein 5.9 gm/dl (6.0-8.3) L 03/17/22 Albumin 3.3 gm/dl (3.4-5.0) L 03/17/22 Globulin 2.6 gm/dl (2.5-4.0) 03/17/22 Albumin/Globulin Ratio 1.3 (0.9-2) 03/17/22 INR 1.3 (0.9-1.1) H 03/17/22 SARS-CoV-2, RNA, NAAT NEGATIVE (NEGATIVE) 03/17/22 Chest X-Ray 03/17/22 Code Status & VTE Plan Code Status DNR/DNI VTE Prophylaxis Plan VTE Prophylaxis will be ordered: Yes Supervising Physician Co-Signing Physician Notes 66-year-old gentleman with PMH of metastatic prostate cancer, lung and bone mets, recent admission for symptomatic pleural effusion status post thoracentesis was sent by oncology clinic due to declining O2 saturation [85% on room air, increased 200% on 2 L] and left leg edema. He was deemed not a candidate for any kind of systemic treatment for the prostate cancer/chronic cancer status and was evaluated to have overall quite poor prognosis. Metastatic cancer to lungs and bone, sent by oncology office for evaluation of shortness of breath and LLE swelling, will get US Doppler LE. Admitting CTA chest with no PE, suggestive of extensive metastases with mod to large left pleural effusion. Patient DNR/DNI and interested in talking with/exploring hospice. Pulmonology consult, made aware. Consult case management for hospice, likely will be able to set it up for possible dc balwinder. For Ac Resp failure likely 2/[address] effu, O2 as needed, pt comfortable w/ BPAP, eval for thorace ntesis or pleurex cath per Pulm balwinder. Lasix prn as BP tolerates. Will get LLE doppler. Pain Mx. Anemia, consented to get 1 unit blood transfusion, follow-up H&H daily or as needed. Electrolytes abnormality: Monitor and replete. Attempted to call [facility] twice for update and as Pt wanted us to update him, no answer and no voicemail available to leave message. Upon examination: GENERAL: Alert and oriented x3. NAD, on BPAP HEENT: No pallor, no icterus. Pupils equal, round and reactive to light. Oral mucosa moist. NECK: No JVD, no neck masses. HEART: S1 and S2 heard. Tachycardic, No murmur, no gallop. RESPIRATORY SYSTEM: Normal AP diameter. No accessory muscle use. No wheezing, no crackles. Decreased Left mid to lower lung bates breath sounds. Chest w/ sterno-costal bone mets/mass, non tender, non erythematous ABDOMEN: Soft, bowel sounds present, nontender, no distention. CENTRAL NERVOUS SYSTEM: No facial droop. Speech is clear. Obeys simple commands. Moves extremities. EXTREMITIES: 1+ BLE edema, no erythema seen. I have seen and examined the patient and have discussed the case with the provider above. I agree with the assessment and plan as stated.
[2022-03-17 16:17] LABS: Appearance Urine Clear (Clear); Bacteria Urine Automated Negative (Negative); Bilirubin Urine Negative (Negative); Blood Urine Negative (Negative); Color Urine Yellow; Glucose Urine UA Negative (Negative); Ketones Urine Negative (Negative); Leukocyte Esterase Urine Negative (Negative); Nitrite Urine Negative (Negative); Protein Urine Trace (Negative); RBC Urine Automated 0-4 /hpf (0-4); Specific Gravity Urine 1.035 (1.000-1.030); Urobilinogen Urine Negative (Negative); pH Urine 5.5 (4.5-7.5)
[2022-03-17] MEDS ORDERED: SODIUM PHOSPHATE 3 MMOL/1 ML INFUSION IV STA (16:33)
[2022-03-17] MEDS ORDERED: SODIUM PHOSPHATE 21 MMOL in SODIUM CHLORIDE 0.9% 500 ML IV ONE (17:00)
[2022-03-17] MEDS ORDERED: POTASSIUM PHOSPHATE 21 MMOL in SODIUM CHLORIDE 0.9% 500 ML IV ONE (17:00)
--- NOTE | 2022-03-17 18:53 | Electrocardiogram Report ---
Test Reason : Blood Pressure : / mmHG Vent. Rate : 114 BPM Atrial Rate : 114 BPM P-R Int : 136 ms QRS Dur : 070 ms QT Int : 342 ms P-R-T Axes : 039 033 032 degrees QTc Int : 471 ms Sinus tachycardia Low voltage QRS Borderline ECG When compared with ECG of 04-MAR-2022 22:37, Premature atrial complexes are no longer Present Nonspecific T wave abnormality has replaced inverted T waves in Anterior leads Confirmed by Lincoln Virgen ([id number]) on 03/17/2022 6:53:14 PM Referred By: REFERRED SELF Confirmed By:Javier Virgen
[2022-03-17] MEDS ORDERED: ALPRAZolam 0.5 MG TABLET PO PRN (20:02)
[2022-03-17] MEDS ORDERED: MAGNESIUM HYDROXIDE SUSP 30 ML UDC PO PRN (20:02)
[2022-03-17] MEDS ORDERED: POLYETHYLENE (MIRALAX) 17 GM PACK PO PRN (20:02)
[2022-03-17] MEDS ORDERED: ALUMINUM/MAGNESIUM SUSP 30 ML UDC PO PRN (20:02)
[2022-03-17] MEDS ORDERED: ONDANSETRON INJ 2 MG/ML 2 ML VIAL IV PRN (20:02)
[2022-03-17] MEDS: CALCIUM 600MG + VIT D 400 IU TAB PO SCH (21:44)
[2022-03-17] MEDS: oxyCODONE HCL IR 5 MG TAB (IMMEDIATE RELEASE) PO PRN (21:44)
[2022-03-17] MEDS: POT PHOSPHATE MONOBASIC W/ SOD TAB PO SCH (21:44)
[2022-03-18] MEDS: oxyCODONE HCL IR 5 MG TAB (IMMEDIATE RELEASE) PO PRN ×2 (03:37→19:31)
[2022-03-18 06:32] LABS: Hematocrit (blood only) 23.1 % (40.1-51.0); Hemoglobin 7.4 g/dl (14.0-18.0); Mean Corpuscular Hemoglobin 28.6 pg (25.0-34.0); Mean Corpuscular Volume 89.2 fL (80.0-100.0); Mean Platelet Volume 9.3 fL (9.4-12.4); Nucleated RBC # (auto) 0.52 K/uL (0-0); Nucleated RBC % (auto) 12.7 %; Platelet Count 26 K/uL (130-400); RDW Standard Deviation 54.7 fL (36.4-46.3); Red Blood Count 2.59 M/uL (4.63-6.08); White Blood Count 4.11 K/ul (4.8-10.8)
[2022-03-18 06:33] LABS: Albumin Globulin Ratio 1.4 (0.9-2); Bilirubin,Total 0.4 mg/dl (0.2-1.0); Calcium 7.5 mg/dl (8.5-10.1); Est GFR (African American) 110.6 ml/min; Est GFR (Non-African American) 95.4 ml/min; Globulin 2.1 gm/dl (2.5-4.0); Magnesium 2.2 mg/dl (1.7-2.4); Phosphorus 1.7 mg/dl (2.5-4.9); Potassium 3.5 mmol/L (3.5-5.1); Total Protein 5.1 gm/dl (6.0-8.3)
[2022-03-18 06:53] LABS: Basophils # (auto) 0.07 K/uL (0-0.2); Basophils % (auto) 1.7 %; Immature Granulocytes # (auto) 0.39 K/uL (0.00-0.02); Immature Granulocytes % (auto) 9.5 %; Lymphocytes # (auto) 0.89 K/uL (1.2-3.4); Lymphocytes % (auto) 21.7 %; Monocytes # (auto) 0.67 K/uL (0.24-0.82); Monocytes % (auto) 16.3 %; Neutrophils # (auto) 2.09 K/uL (1.4-6.5); Neutrophils % (auto) 50.8 %; Platelet Estimate Decreased (Normal); Tear Drop Cells 1+
[2022-03-18 07:11] LABS: Estimated Average Glucose 131 mg/dl; Hemoglobin A1C 6.2 % (4.5-5.6)
--- NOTE | 2022-03-18 07:41 | Ultrasound Report ---
BILATERAL LOWER EXTREMITY VENOUS DOPPLER CLINICAL HISTORY: Lower extremity swelling. Evaluate for deep venous thrombus. COMPARISON STUDY: No previous studies for comparison. TECHNIQUE: Sonography of the deep venous system of the bilateral lower extremities was performed. Co mpression and augmentation were evaluated. FINDINGS: The bilateral common femoral, superficial femoral and popliteal veins were compressible. A ugmentation was normal. Flow was shown within the deep calf vessels. IMPRESSION: No evidence of deep venous thrombus within the bilateral lower extremities. ACT 112: Negative or not required by law. Electronically signed by: Handy Lacey M.D. 03/18/2022 7:39 AM
[2022-03-18] MEDS: CHECK fentaNYL PATCH PLACEMENT SCH ×8 (08:20→23:37)
[2022-03-18] MEDS: PARoxetine HCL 10 MG TAB PO SCH (08:25)
[2022-03-18] MEDS: APALUTAMIDE 60 MG PO SCH (08:25)
[2022-03-18] MEDS: PANTOprazole 40 MG TAB PO SCH (08:25)
[2022-03-18] MEDS: PRAVASTATIN SOD 20 MG TAB PO SCH (08:25)
[2022-03-18] MEDS ORDERED: fentaNYL 12 MCG/HR TDSY TD SCH (09:00)
[2022-03-18] MEDS ORDERED: fentaNYL 25 MCG/HR TDSY TD SCH (09:00)
[2022-03-18] MEDS: CALCIUM 600MG + VIT D 400 IU TAB PO SCH ×4 (09:00→19:32)
[2022-03-18] MEDS: POT PHOSPHATE MONOBASIC W/ SOD TAB PO SCH ×3 (09:01→20:49)
--- NOTE | 2022-03-18 09:30 | Pulmonary Consultation ---
Date of Consultation March 18, 2022 Assessment & Plan (1) Dyspnea: Secondary to severe anemia, malignancy and pleural effusion. Relatively asymptomatic at rest with supplemental oxygen. Recommend the use of opiates to help minimize sensation of dyspnea. (2) Acute hypoxemic respiratory failure: Continue supplemental oxygen to maintain saturations above 88%. He has mass compression of the pulmonary artery which is likely contributing significantly to his hypoxemia. He has been refractory to chemotherapy and immunotherapy. His advanced malignancy ultimately represents a terminal illness. Agree with hospice measures. (3) Malignant pleural effusion: We will hold off on thoracentesis given his profound thrombocytopenia. Appears comfortable at this time. Would recommend treating symptoms with medications as opposed to more invasive procedures. Plan Thank you for allowing us to participate in the care of this patient. We will sign off. Please call with questions. History of Present Illness Reason for Consultation: Pleural effusion Attending Physician: Laura Madrid MD History of Present Illness 66-year-old male with a past medical history of metastatic adenocarcinoma of the prostate who I last saw in pulmonary consultation on 03/05/2022 while hospitalized. I performed a thoracentesis of the left pleural effusion which revealed a malignant process. He returns to the hospital due to shortness of breath for the past 4 days. Received 1 unit of blood during this hospitalization due to worsening anemia. He also has a very low platelet count of 26,000. Pulmonary was consulted to consider Pleurx catheter or thoracentesis of the moderate size left pleural effusion. His CT chest demonstrates severe compression of the left central pulmonary artery due to bulky mediastinal adenopathy. Lower extremity Doppler did not reveal any evidence of DVT. Currently saturating 99% on 2 L. Patient feels that he feels slightly improved compared to this morning. He denies any significant chest pain. He does have some mild shortness of breath when laying flat. No fevers or chills. Brother and friend are at bedside. Brother and patient indicate that the plan would be to go home with hospice potentially today. Allergies Allergy/AdvReac Type Severity Reaction Status Date / Time No Known Allergies Allergy Mild Verified 03/05/22 03:10 Home Medications Medication Instructions Recorded Confirmed Type acetaminophen 500 mg tablet 500 mg PO Q6H PRN Unknown 01/06/22 03/17/22 History (Tylenol Extra Strength) alprazolam 0.5 mg tablet (Xanax) 0.5 mg PO HS PRN Anxiety 01/06/22 03/17/22 History apalutamide 60 mg tablet 240 mg PO DAILY 01/06/22 03/17/22 History calcium carbonate 600 mg-vitamin 2 tab PO QID 01/06/22 03/17/22 History D3 10 mcg (400 unit) chewable tablet naloxone 4 mg/actuation nasal spray 1 spray intranasal Q3M PRN opioid 01/06/22 03/17/22 Rx overdose #2 ea potassium phosphate, monobasic 500 1,000 mg PO TID 01/06/22 03/17/22 History mg soluble tablet pravastatin 20 mg tablet 20 mg PO DAILY 01/06/22 03/17/22 History omeprazole 20 mg capsule,delayed 20 mg PO DAILY 01/18/22 03/17/22 History release ibuprofen 800 mg tablet 800 mg PO Q8H PRN pain #30 tabs 02/01/22 03/17/22 Rx prednisone 20 mg tablet 40 mg PO .COMPLEX #40 tabs 02/01/22 03/17/22 Rx fentanyl 37.5 mcg/hour transdermal 1 patch transdermal Q72H #10 ea 02/16/22 03/17/22 Rx patch oxycodone 10 mg tablet 10 mg PO QID PRN Pain 03/05/22 03/17/22 History paroxetine HCl 10 mg tablet 10 mg PO QAM 03/05/22 03/17/22 History Patient History Medical History Adult hypophosphatasia Degenerative disc disease Goals of care, counseling/discussion Hearing loss Hip pain, acute Hyperlipidemia Intractable pain Lumbar spinal stenosis Mass of colon with enlarged lymph nodes Metastatic disease Pleural effusion Prostate cancer Prostate cancer metastatic to bone Renal colic on right side Tinnitus Surgical History History of appendectomy History of colonoscopy History of tonsillectomy Family History Other Cancer Colorectal cancer Heart disease Lung disease Social History Smoking Status: Never smoker Second Hand Exposure: No; Hx Alcohol Use: No Hx Substance Use: No Preferred Language: Montenegrin Communication Ability: Effective [place] Required: No Beliefs That Will Affect Care: None marital status: Single Current Living Situation: Family Other Information That Helps Us Care for You: No Feels Safe at Home: Yes Safety Concerns: Feels Safe At This Time Assistive Devices: Cane, Raised Toilet Seat and Walker Assistive Devices Comment: shower chair Review of Systems Review of Systems: All systems reviewed & are unremarkable except as noted in HPI & below Physical Exam Physical Exam: Constitutional: Frail-appearing male in no apparent distress. Laying in bed. Eyes: Pupils are equal round and reactive to light. Conjunctivae are normal. Anicteric sclera. Ears nose, mouth and throat: No obvious deformity seen. Neck: Trachea is midline. Visual inspection is normal. Respiratory: Diminished lung sounds on the left. Mild rhonchi. Cardiovascular: Regular rate and rhythm. No murmurs. No edema. Gastrointestinal: Normal bowel sounds, soft, nontender and nondistended. No hepatosplenomegaly noted. Musculoskeletal: No cyanosis. Patient is able to move all extremities. Skin: No rashes, warm dry and intact. Large anterior chest wall mass noted. Neurologic: No obvious focal neurological deficits seen. Psychiatric: Alert and oriented x3 with a euthymic affect. Results & Data Results & Data ([facility]) Vital Signs (Past 12 Hours) Vital Signs Temp Pulse Resp BP Pulse Ox O2 Del Method O2 Flow Rate 03/18/22 07:02 36.6 C 106 H 20 106/63 100 Nasal Cannula 2.0 03/18/22 02:52 37.0 C 108 H 20 93/69 L 100 Nasal Cannula 2.0 03/18/22 00:07 36.7 C 115 H 20 107/68 100 Nasal Cannula 2.0 PG Care Time/CCT Total # of Minutes Spent Total Time Spent with Patient: Total time spent is greater than 50% in coordination of care (as documented) at patient's floor/unit and/or counseling patient: Coding Level of Care Code 15608 Initial Inpt Care Lvl 2 Diagnoses Dyspnea R06.00 Acute hypoxemic respiratory failure J96.01 Malignant pleural effusion J91.0
[2022-03-18] MEDS ORDERED: POTASSIUM PHOS 3 MMOL/1 ML INFUSION IV STA (10:46)
[2022-03-18] MEDS ORDERED: POTASSIUM PHOSPHATE 24 MMOL in SODIUM CHLORIDE 0.9% 500 ML IV STA (10:52)
--- NOTE | 2022-03-18 13:50 | Hospitalist Progress Note ---
Date of Service March 18, 2022 Assessment & Plan (1) Prostate cancer metastatic to bone: Plan: No further treatment (2) Metastatic cancer to lung: Plan: No further chemo (3) Anemia: Plan: Received 1 unit of blood transfusion (4) Thrombocytopenia: (5) Pleural effusion: Plan: Discussed with mental health director To reschedule any thoracentesis due to very low platelet Not a candidate for Pleurx catheter (6) Goals of care, counseling/discussion: (7) Hypocalcemia: (8) Hypophosphatemia: Plan This is a 66-year-old male who has a significant past medical history of metastatic prostate cancer to bone and lung, left chest wall mass status postbiopsy noted for high-grade adenocarcinoma likely not due to prostate, significant progressive anemia and thrombocytopenia likely due to bone marrow invasion in setting of metastatic disease, HLD, IGNACIO, hypophosphatemia who presents to ED secondary to shortness of breath x4 days. He has metastatic prostate cancer to bone, lung, recurrent malignant pleural effusion, Lleft chest wall mass recently biopsied revealing high-grade adenocarcinoma, Evidence of likely bone marrow invasion in setting of progressive anemia and thrombocytopenia, and Now with evidence on CTA of severe compression of left central pulmonary arteries due to bulky mediastinal and hilar adenopathy. He was seen by his oncology team today, Dr. Lam. Patient is not a candidate for any further systemic or palliative chemotherapy due to advanced stage of malignancy. After lengthy discussion with patient, although initially hesitant, has decided and agreed on DNR/DNI resuscitation status. He has discussed hospice with his oncologist, but has not explored options. He is agreeable to hospice services and I have reached out to case management to work on this for this patient. Overall prognosis remains very poor and goal for this patient is comfort. creative services director on the case and hospice referral has been done Patient remains otherwise stable though very weak and lethargic will continue oxygen and bipap support for now for comfort Left pleural effusion Will ask our pulmonary colleagues to see patient to determine possible benefit of Pleurx cath Discussed with mental health director He is not a candidate for thoracentesis and/or Pleurx catheter given significant thrombocytopenia Hemoglobin is 7.0 Received 1 unit PRBC Hemoglobin went up to 7.4 Electrolytes imbalance Calcium & potassium replaced Phosphorus critically low, will replace with 21 mmol x 1 now DVT ppx: SCDS given anemia, thrombocytopenia Dispo: PCU for now, consult CM to discuss and arrange hospice services, possible need to transition to inpatient hospice if pt rapidly deteriorates DNR/DNI PCP:Sole Admission and Anticipated Discharge Date Admission Date: March 17, 2022 Subjective 03/18/2022 The patient was seen and examined in telemetry unit He has minimal shortness of breath at rest but denies any significant pain He has been waiting hospice evaluation and then go home or to a hospice facility Review of Systems Review of Systems: All systems reviewed and are unremarkable except as noted below Physical Exam Physical Exam: Lying in bed without any significant symptoms but looks pale Constitutional: well developed, well nourished, + ill appearing and + obese Eyes: PERRL, conjunctivae normal, anicteric sclerae ENMT: external ear and nose normal, oropharynx normal Neck: trachea midline, no thyromegaly Respiratory: + respiratory distress (Minimal distress at rest) Auscultation: + diminished lung sounds and + crackles (Bibasilar crackles) Cardiovascular: Rate/Rhythm: regular rate, regular rhythm and + tachycardic Heart Sounds: normal S1 and normal S2; no murmur Extremities: + edema (Trace edema bilaterally) Gastrointestinal (Abdomen): Inspection/Auscultation: normal bowel sounds; abdomen not distended Percussion/Palpation: abdomen soft; abdomen nontender Musculoskeletal: No acute arthritis in any joint Neurologic: Alert, awake and oriented x3. Generally very weak and lethargic Lymphatic: no cervical or axillary lymphadenopathy Results & Data Results & Data ([facility]) Vital Signs (Past 12 Hours) Vital Signs Temp Pulse Pulse Resp BP Pulse Ox O2 Del Method 03/18/22 11:25 36.5 C 115 H 20 120/85 99 Nasal Cannula 03/18/22 10:46 101 H 03/18/22 10:39 Nasal Cannula 03/18/22 07:02 36.6 C 106 H 20 106/63 100 Nasal Cannula 03/18/22 02:52 37.0 C 108 H 20 93/69 L 100 Nasal Cannula O2 Flow Rate 03/18/22 11:25 2 03/18/22 10:46 03/18/22 10:39 2 03/18/22 07:02 2.0 03/18/22 02:52 2.0 Laboratory Results Short CBC 03/17/22 03/18/22 Range/Units 14:13 05:43 WBC 4.97 4.11 L (4.8-10.8) K/ul Hgb 7.0 L 7.4 L (14.0-18.0) g/dl Hct 21.9 L 23.1 L (40.1-51.0) % Plt Count 36 L 26 L* (130-400) K/uL BMP 03/17/22 03/18/22 14:13 05:43 Sodium 133 L 137 Potassium 3.9 3.5 Chloride 105 107 Carbon Dioxide 20 L 23 BUN 19 20 Creatinine 0.66 0.74 Glucose 129 H 94 Calcium 8.2 L 7.5 L Liver Function 03/17/22 03/18/22 Range/Units 14:13 05:43 Total Bilirubin 0.6 0.4 (0.2-1.0) mg/dl AST 24 22 (13-39) U/L ALT 7 6 L (7-52) U/L Alkaline Phosphatase 287 H 256 H (34-104) U/L Albumin 3.3 L 3.0 L (3.4-5.0) gm/dl Urine 03/17/22 Range/Units 15:30 Urine Color Yellow Urine Appearance Clear (Clear) Urine pH 5.5 (4.5-7.5) Ur Specific [place] 1.035 H (1.000-1.030) Urine Protein Trace H (Negative) Urine Glucose (UA) Negative (Negative) Medications Administered Current Inpatient Medications Acetaminophen (Acetaminophen 325 Mg Tab) 650 mg PO Q4H PRN PRN Reason: Pain or Fever Stop: 04/16/22 20:01 Al Hydrox/Mg Hydrox/Simethicone (Aluminum/Magnesium Susp 30 Ml Udc) 15 ml PO Q4H PRN PRN Reason: Dyspepsia Stop: 04/16/22 20:01 Alprazolam (Alprazolam 0.5 Mg Tablet) 0.5 mg PO HS PRN PRN Reason: Anxiety Stop: 04/16/22 20:01 Last Admin: 03/17/22 21:44 Dose: 0.5 mg Apalutamide (Apalutamide 60 Mg Tablet) 240 mg PO DAILY [facility] Stop: 04/17/22 08:59 Last Admin: 03/18/22 08:25 Dose: 240 mg Fentanyl (Fentanyl 12 Mcg/Hr Tdsy) 12 mcg TD Q3D [facility] Stop: 04/01/22 08:59 Last Admin: 03/18/22 08:21 Dose: 12 mcg Fentanyl (Fentanyl 25 Mcg/Hr Tdsy) 25 mcg TD Q3D [facility] Stop: 04/01/22 08:59 Last Admin: 03/18/22 08:21 Dose: 25 mcg Potassium Phosphate 24 mmol/ (Sodium Chloride) 508 mls @ 88 mls/hr IV ONE STA Stop: 03/18/22 16:38 Last Admin: 03/18/22 11:28 Dose: 88 mls/hr Magnesium Hydroxide (Magnesium Hydroxide Susp 30 Ml Udc) 30 ml PO Q12H PRN PRN Reason: Constipation Stop: 04/16/22 20:01 Miscellaneous (Fentanyl Patch Remove & Waste) 1 each N/A Q72H [facility] Stop: 04/17/22 08:58 Last Admin: 03/18/22 08:21 Dose: 1 each Miscellaneous (Check Fentanyl Patch Placement) 1 each N/A QS [facility] Stop: 04/17/22 00:00 Last Admin: 03/18/22 08:20 Dose: 1 each Miscellaneous (Fentanyl Patch Remove & Waste) 1 each N/A Q72H [facility] Stop: 04/17/22 08:58 Last Admin: 03/18/22 08:22 Dose: 1 each Miscellaneous (Check Fentanyl Patch Placement) 1 each N/A QS [facility] Stop: 04/17/22 00:00 Last Admin: 03/18/22 08:21 Dose: 1 each Multivitamins/Minerals (Calcium 600mg + Vit D 400 Iu Tab) 2 tab PO QID [facility] Stop: 04/16/22 20:59 Last Admin: 03/18/22 09:00 Dose: 2 tab Ondansetron HCl (Ondansetron Inj 2 Mg/Ml 2 Ml Vial) 4 mg IV Q6H PRN PRN Reason: Nausea Stop: 04/16/22 20:01 Oxycodone HCl (Oxycodone Hcl Ir 5 Mg Tab (Immediate Release)) 10 mg PO QID PRN PRN Reason: Pain Stop: 03/31/22 20:01 Last Admin: 03/18/22 03:37 Dose: 10 mg Pantoprazole Sodium (Pantoprazole 40 Mg Tab) 40 mg PO DAILY [facility]; Protocol Stop: 04/17/22 08:59 Last Admin: 03/18/22 08:25 Dose: 40 mg Paroxetine HCl (Paroxetine Hcl 10 Mg Tab) 10 mg PO QAM [facility] Stop: 04/17/22 08:59 Last Admin: 03/18/22 08:25 Dose: 10 mg Polyethylene Glycol (Polyethylene (Miralax) 17 Gm Pack) 17 gm PO DAILY PRN PRN Reason: Constipation Stop: 04/16/22 20:01 Potassium Phosphate (Pot Phosphate Monobasic W/ Sod Tab) 4 tab PO TID [facility] Stop: 04/16/22 20:59 Last Admin: 03/18/22 09:01 Dose: 4 tab Pravastatin Sodium (Pravastatin Sod 20 Mg Tab) 20 mg PO DAILY [facility] Stop: 04/17/22 08:59 Last Admin: 03/18/22 08:25 Dose: 20 mg
[2022-03-18] MEDS ORDERED: SODIUM CHLORIDE 0.9% 250 ML IV ONE (18:26)
[2022-03-18] MEDS: ACETAMINOPHEN 325 MG TAB PO PRN (19:30)
[2022-03-19] MEDS: ACETAMINOPHEN 325 MG TAB PO PRN ×3 (03:16→23:25)
[2022-03-19] MEDS: oxyCODONE HCL IR 5 MG TAB (IMMEDIATE RELEASE) PO PRN ×3 (03:16→23:25)
[2022-03-19] MEDS ORDERED: METOPROLOL TARTRATE 1 MG/ML VIAL IV STA ×2 (04:18→23:00)
[2022-03-19 05:59] LABS: Hemoglobin 7.2 g/dl (14.0-18.0); Mean Platelet Volume 12.1 fL (9.4-12.4); Platelet Count 34 K/uL (130-400); White Blood Count 3.13 K/ul (4.8-10.8)
[2022-03-19 06:21] LABS: BUN Creatinine Ratio 21.3 (10-20); Creatinine Clr Calc Pharmacy 121.3 ml/min; Est GFR (African American) 119.8 ml/min; Est GFR (Non-African American) 103.3 ml/min; Magnesium 1.8 mg/dl (1.7-2.4); Phosphorus 1.8 mg/dl (2.5-4.9); Potassium 3.3 mmol/L (3.5-5.1)
[2022-03-19 06:25] LABS: Basophils # (auto) 0.04 K/uL (0-0.2); Basophils % (auto) 1.3 %; Eosinophils # (auto) 0.02 K/uL (0-0.50); Eosinophils % (auto) 0.6 %; Immature Granulocytes # (auto) 0.26 K/uL (0.00-0.02); Immature Granulocytes % (auto) 8.3 %; Lymphocytes # (auto) 0.64 K/uL (1.2-3.4); Lymphocytes % (auto) 20.4 %; Mean Corpuscular Hemoglobin 28.9 pg (25.0-34.0); Mean Corpuscular Hgb Conc 32.7 g/dL (32.0-36.0); Mean Corpuscular Volume 88.4 fL (80.0-100.0); Monocytes # (auto) 0.33 K/uL (0.24-0.82); Monocytes % (auto) 10.5 %; Neutrophils # (auto) 1.84 K/uL (1.4-6.5); Neutrophils % (auto) 58.9 %; Nucleated RBC # (auto) 0.61 K/uL (0-0); Nucleated RBC % (auto) 19.5 %; Polychromasia 1+; RDW Coefficient of Variation 18.3 % (11.5-14.5); RDW Standard Deviation 55.8 fL (36.4-46.3); Red Blood Count 2.49 M/uL (4.63-6.08); Tear Drop Cells 1+
[2022-03-19] MEDS ORDERED: POTASSIUM PHOS 3 MMOL/1 ML INFUSION IV STA (07:51)
[2022-03-19] MEDS ORDERED: POTASSIUM PHOSPHATE 24 MMOL in SODIUM CHLORIDE 0.9% 500 ML IV ONE (08:00)
[2022-03-19] MEDS: PRAVASTATIN SOD 20 MG TAB PO SCH (08:28)
[2022-03-19] MEDS: PARoxetine HCL 10 MG TAB PO SCH (08:29)
[2022-03-19] MEDS: PANTOprazole 40 MG TAB PO SCH (08:29)
[2022-03-19] MEDS: APALUTAMIDE 60 MG PO SCH (08:29)
[2022-03-19] MEDS: CALCIUM 600MG + VIT D 400 IU TAB PO SCH ×4 (08:29→19:49)
[2022-03-19] MEDS: CHECK fentaNYL PATCH PLACEMENT SCH ×6 (08:33→23:45)
[2022-03-19] MEDS ORDERED: Nursing to Pharmacy Communication SCH (08:45)
[2022-03-19] MEDS: POT PHOSPHATE MONOBASIC W/ SOD TAB PO SCH ×4 (09:21→20:06)
[2022-03-19] MEDS: METOPROLOL TARTRATE 25 MG TAB PO SCH ×2 (10:31→19:49)
--- NOTE | 2022-03-19 10:58 | Hospitalist Progress Note ---
Date of Service March 19, 2022 Assessment & Plan (1) Prostate cancer metastatic to bone: Plan: No further treatment (2) Metastatic cancer to lung: Plan: No further chemo (3) Anemia: Plan: Received 1 unit of blood transfusion (4) Thrombocytopenia: (5) Pleural effusion: Plan: Discussed with prescription benefit specialist To reschedule any thoracentesis due to very low platelet Not a candidate for Pleurx catheter (6) Goals of care, counseling/discussion: (7) Hypocalcemia: (8) Hypophosphatemia: Plan This is a 66-year-old male who has a significant past medical history of metastatic prostate cancer to bone and lung, left chest wall mass status postbiopsy noted for high-grade adenocarcinoma likely not due to prostate, significant progressive anemia and thrombocytopenia likely due to bone marrow invasion in setting of metastatic disease, HLD, IGNACIO, hypophosphatemia who presents to ED secondary to shortness of breath x4 days. He has metastatic prostate cancer to bone, lung, recurrent malignant pleural effusion, Lleft chest wall mass recently biopsied revealing high-grade adenocarcinoma, Evidence of likely bone marrow invasion in setting of progressive anemia and thrombocytopenia, and Now with evidence on CTA of severe compression of left central pulmonary arteries due to bulky mediastinal and hilar adenopathy. He was seen by his oncology team today, Dr. Lam. Patient is not a candidate for any further systemic or palliative chemotherapy due to advanced stage of malignancy. After lengthy discussion with patient, although initially hesitant, has decided and agreed on DNR/DNI resuscitation status. He has discussed hospice with his oncologist, but has not explored options. He is agreeable to hospice services and I have reached out to case management to work on this for this patient. Overall prognosis remains very poor and goal for this patient is comfort. dietary services manager on the case and hospice referral has been done Patient remains otherwise stable though very weak and lethargic He remains stable though generally very weak and lethargic The field case manager is working on hospital set up at home which will be done before Monday The brother wants to take him home even though hospice therapy is not yet complete The patient will be discharged home this afternoon Left pleural effusion Will ask our pulmonary colleagues to see patient to determine possible benefit of Pleurx cath Discussed with prescription benefit specialist He is not a candidate for thoracentesis and/or Pleurx catheter given significant thrombocytopenia Hemoglobin is 7.0 Received 1 unit PRBC Hemoglobin went up to 7.4 Hemoglobin remains stable at more than 7 Electrolytes imbalance Calcium & potassium replaced Phosphorus critically low, will replace with 21 mmol x 1 now Got another dose of K-Phos IV We will continue with oral replacement DVT ppx: SCDS given anemia, thrombocytopenia Dispo: PCU for now, consult CM to discuss and arrange hospice services, possible need to transition to inpatient hospice if pt rapidly deteriorates DNR/DNI PCP:Sole He will be discharged home this afternoon Admission and Anticipated Discharge Date Admission Date: March 17, 2022 Subjective 03/18/2022 The patient was seen and examined in telemetry unit He has minimal shortness of breath at rest but denies any significant pain He has been waiting hospice evaluation and then go home or to a hospice facility 03/19/2022 The patient was seen and examined in telemetry unit She has been having tachycardia and the heart rate persisting more than 120s all the time Denies any chest pain, palpitation or more shortness of breath Saturating normally on room air His brother wants to take him home today even though the full hospice set of has not been done yet-manager in training is able Review of Systems Review of Systems: All systems reviewed and are unremarkable except as noted below Physical Exam Physical Exam: Lying in bed without any significant symptoms but looks pale Constitutional: well developed, well nourished, + ill appearing and + obese Eyes: PERRL, conjunctivae normal, anicteric sclerae ENMT: external ear and nose normal, oropharynx normal Neck: trachea midline, no thyromegaly Respiratory: + respiratory distress (Minimal distress at rest) Auscultation: + diminished lung sounds and + crackles (Bibasilar crackles) Cardiovascular: Rate/Rhythm: regular rate, regular rhythm and + tachycardic Heart Sounds: normal S1 and normal S2; no murmur Extremities: + edema (Trace edema bilaterally) Gastrointestinal (Abdomen): Inspection/Auscultation: normal bowel sounds; ab domen not distended Percussion/Palpation: abdomen soft; abdomen nontender Musculoskeletal: No acute arthritis in any joint Neurologic: normal touch/pain/proprioception and moves all extremities; not confused Psychiatric: A+Ox3, euthymic affect Lymphatic: no cervical or axillary lymphadenopathy Results & Data Results & Data ([facility]) Vital Signs (Past 12 Hours) Vital Signs Temp Pulse Pulse Resp BP BP Pulse Ox 03/19/22 07:00 117 H 03/19/22 07:05 37.1 C 126 H 20 123/85 93 03/19/22 03:12 36.8 C 127 H 24 116/69 94 03/19/22 04:23 122 H 118/72 03/18/22 23:08 36.4 C L 72 18 101/58 L 96 O2 Del Method 03/19/22 07:00 03/19/22 07:05 Room Air 03/19/22 03:12 Room Air 03/19/22 04:23 03/18/22 23:08 Room Air Laboratory Results Short CBC 03/19/22 Range/Units 05:22 WBC 3.13 L (4.8-10.8) K/ul Hgb 7.2 L (14.0-18.0) g/dl Hct 22.0 L (40.1-51.0) % Plt Count 34 L (130-400) K/uL BMP 03/19/22 05:22 Sodium 137 Potassium 3.3 L Chloride 105 Carbon Dioxide 23 BUN 13 Creatinine 0.61 Glucose 105 H Calcium 7.0 L Medications Administered Current Inpatient Medications Acetaminophen (Acetaminophen 325 Mg Tab) 650 mg PO Q4H PRN PRN Reason: Pain or Fever Stop: 04/16/22 20:01 Last Admin: 03/19/22 03:16 Dose: 650 mg Al Hydrox/Mg Hydrox/Simethicone (Aluminum/Magnesium Susp 30 Ml Udc) 15 ml PO Q4H PRN PRN Reason: Dyspepsia Stop: 04/16/22 20:01 Alprazolam (Alprazolam 0.5 Mg Tablet) 0.5 mg PO HS PRN PRN Reason: Anxiety Stop: 04/16/22 20:01 Last Admin: 03/17/22 21:44 Dose: 0.5 mg Apalutamide (Apalutamide 60 Mg Tablet) 240 mg PO DAILY [facility] Stop: 04/17/22 08:59 Last Admin: 03/19/22 08:29 Dose: 240 mg Fentanyl (Fentanyl 12 Mcg/Hr Tdsy) 12 mcg TD Q3D [facility] Stop: 04/01/22 08:59 Last Admin: 03/18/22 08:21 Dose: 12 mcg Fentanyl (Fentanyl 25 Mcg/Hr Tdsy) 25 mcg TD Q3D [facility] Stop: 04/01/22 08:59 Last Admin: 03/18/22 08:21 Dose: 25 mcg Potassium Phosphate 24 mmol/ (Sodium Chloride) 508 mls @ 88 mls/hr IV ONE ONE Stop: 03/19/22 13:46 Last Admin: 03/19/22 08:23 Dose: 88 mls/hr Magnesium Hydroxide (Magnesium Hydroxide Susp 30 Ml Udc) 30 ml PO Q12H PRN PRN Reason: Constipation Stop: 04/16/22 20:01 Metoprolol Tartrate (Metoprolol Tartrate 25 Mg Tab) 12.5 mg PO BID [facility] Stop: 04/18/22 09:59 Last Admin: 03/19/22 10:31 Dose: 12.5 mg Miscellaneous (Fentanyl Patch Remove & Waste) 1 each N/A Q72H [facility] Stop: 04/17/22 08:58 Last Admin: 03/18/22 08:21 Dose: 1 each Miscellaneous (Check Fentanyl Patch Placement) 1 each N/A QS [facility] Stop: 04/17/22 00:00 Last Admin: 03/19/22 08:33 Dose: 1 each Miscellaneous (Fentanyl Patch Remove & Waste) 1 each N/A Q72H [facility] Stop: 04/17/22 08:58 Last Admin: 03/18/22 08:22 Dose: 1 each Miscellaneous (Check Fentanyl Patch Placement) 1 each N/A QS [facility] Stop: 04/17/22 00:00 Last Admin: 03/19/22 09:21 Dose: 1 each Multivitamins/Minerals (Calcium 600mg + Vit D 400 Iu Tab) 2 tab PO QID [facility] Stop: 04/16/22 20:59 Last Admin: 03/19/22 08:29 Dose: 2 tab Ondansetron HCl (Ondansetron Inj 2 Mg/Ml 2 Ml Vial) 4 mg IV Q6H PRN PRN Reason: Nausea Stop: 04/16/22 20:01 Oxycodone HCl (Oxycodone Hcl Ir 5 Mg Tab (Immediate Release)) 10 mg PO QID PRN PRN Reason: Pain Stop: 03/31/22 20:01 Last Admin: 03/19/22 03:16 Dose: 10 mg Pantoprazole Sodium (Pantoprazole 40 Mg Tab) 40 mg PO DAILY [facility]; Protocol Stop: 04/17/22 08:59 Last Admin: 03/19/22 08:29 Dose: 40 mg Paroxetine HCl (Paroxetine Hcl 10 Mg Tab) 10 mg PO QAM [facility] Stop: 04/17/22 08:59 Last Admin: 03/19/22 08:29 Dose: 10 mg Polyethylene Glycol (Polyethylene (Miralax) 17 Gm Pack) 17 gm PO DAILY PRN PRN Reason: Constipation Stop: 04/16/22 20:01 Potassium Phosphate (Pot Phosphate Monobasic W/ Sod Tab) 4 tab PO TID [facility] Stop: 04/16/22 20:59 Last Admin: 03/19/22 09:21 Dose: 4 tab Pravastatin Sodium (Pravastatin Sod 20 Mg Tab) 20 mg PO DAILY [facility] Stop: 04/17/22 08:59 Last Admin: 03/19/22 08:28 Dose: 20 mg
[2022-03-19] MEDS ORDERED: METOPROLOL TARTRATE 1 MG/ML VIAL IV ONE (23:19)
[2022-03-20] MEDS: ACETAMINOPHEN 325 MG TAB PO PRN ×2 (05:49→09:41)
[2022-03-20] MEDS: oxyCODONE HCL IR 5 MG TAB (IMMEDIATE RELEASE) PO PRN (05:50)
[2022-03-20] MEDS: METOPROLOL TARTRATE 25 MG TAB PO SCH (06:00)
[2022-03-20] MEDS: CHECK fentaNYL PATCH PLACEMENT SCH ×2 (07:50)
[2022-03-20] MEDS: APALUTAMIDE 60 MG PO SCH (08:24)
[2022-03-20] MEDS: POT PHOSPHATE MONOBASIC W/ SOD TAB PO SCH ×3 (08:28→13:44)
[2022-03-20] MEDS: PRAVASTATIN SOD 20 MG TAB PO SCH (08:28)
[2022-03-20] MEDS: CALCIUM 600MG + VIT D 400 IU TAB PO SCH ×2 (08:28→13:42)
[2022-03-20] MEDS: PARoxetine HCL 10 MG TAB PO SCH (08:28)
[2022-03-20] MEDS: PANTOprazole 40 MG TAB PO SCH (08:28)
[2022-03-20] MEDS ORDERED: POTASSIUM CHLORIDE CRTAB 20 MEQ TABCR PO SCH (09:00)
[2022-03-20] MEDS: MoRPHine SULFATE 4 MG/ML 1 ML CARP\\VIAL IV PRN ×2 (10:37→12:23)
[2022-03-20 11:14] VITALS: BP 105/79; TEMP 98.2; O2SAT 93
[2022-03-20] MEDS ORDERED: DIGOXIN 125 MCG in SYRINGE 9.5 ML IV STA (11:32)
[2022-03-20] MEDS ORDERED: FUROSEMIDE INJ 20 MG/2 ML VIAL IV ONE (12:32)
[2022-03-20] MEDS ORDERED: MoRPHine SULFATE 4 MG/ML 1 ML CARP\\VIAL IV STA (12:32)
--- NOTE | 2022-03-20 12:52 | Hospitalist Progress Note ---
Date of Service March 20, 2022 Assessment & Plan (1) Prostate cancer metastatic to bone: Plan: No further treatment (2) Metastatic cancer to lung: Plan: No further chemo (3) Anemia: Plan: Received 1 unit of blood transfusion (4) Thrombocytopenia: (5) Pleural effusion: Plan: Discussed with corporate general manager To reschedule any thoracentesis due to very low platelet Not a candidate for Pleurx catheter (6) Goals of care, counseling/discussion: (7) Hypocalcemia: (8) Hypophosphatemia: Plan This is a 66-year-old male who has a significant past medical history of metastatic prostate cancer to bone and lung, left chest wall mass status postbiopsy noted for high-grade adenocarcinoma likely not due to prostate, significant progressive anemia and thrombocytopenia likely due to bone marrow invasion in setting of metastatic disease, HLD, IGNACIO, hypophosphatemia who presents to ED secondary to shortness of breath x4 days. He has metastatic prostate cancer to bone, lung, recurrent malignant pleural effusion, Lleft chest wall mass recently biopsied revealing high-grade adenocarcinoma, Evidence of likely bone marrow invasion in setting of progressive anemia and thrombocytopenia, and Now with evidence on CTA of severe compression of left central pulmonary arteries due to bulky mediastinal and hilar adenopathy. He was seen by his oncology team today, Dr. Lam. Patient is not a candidate for any further systemic or palliative chemotherapy due to advanced stage of malignancy. After lengthy discussion with patient, although initially hesitant, has decided and agreed on DNR/DNI resuscitation status. He has discussed hospice with his oncologist, but has not explored options. He is agreeable to hospice services and I have reached out to case management to work on this for this patient. Overall prognosis remains very poor and goal for this patient is comfort. rn women services on the case and hospice referral has been done Patient remains otherwise stable though very weak and lethargic He remains stable though generally very weak and lethargic The case checker is working on hospital set up at home which will be done before Monday The brother wants to take him home even though hospice therapy is not yet complete The condition has deteriorated with increasing shortness of breath, increasing pain, tachycardia and profound weakness He was given morphine 4 mg x 2, 20 mg of IV Lasix and 0.125 mcg of IV digoxin His condition is critical and his brother was informed He is likely going to be comfort care from now Left pleural effusion Will ask our pulmonary colleagues to see patient to determine possible benefit of Pleurx cath Discussed with corporate general manager He is not a candidate for thoracentesis and/or Pleurx catheter given significant thrombocytopenia Hemoglobin is 7.0 Received 1 unit PRBC Hemoglobin went up to 7.4 Hemoglobin remains stable at more than 7 Electrolytes imbalance Calcium & potassium replaced Phosphorus critically low, will replace with 21 mmol x 1 now Got another dose of K-Phos IV We will continue with oral replacement DVT ppx: SCDS given anemia, thrombocytopenia Dispo: PCU for now, consult CM to discuss and arrange hospice services, possible need to transition to inpatient hospice if pt rapidly deteriorates DNR/DNI PCP:Sole Condition remains critical and unsafe for transfer Admission and Anticipated Discharge Date Admission Date: March 17, 2022 Subjective 03/18/2022 The patient was seen and examined in telemetry unit He has minimal shortness of breath at rest but denies any significant pain He has been waiting hospice evaluation and then go home or to a hospice facility 03/19/2022 The patient was seen and examined in telemetry unit She has been having tachycardia and the heart rate persisting more than 120s all the time Denies any chest pain, palpitation or more shortness of breath Saturating normally on room air His brother wants to take him home today even though the full hospice set of has not been done yet-gift shop manager is able 03/20/2022 The patient was seen and examined in telemetry unit His condition is worse today with increasing shortness of breath, tachycardia and increasing pain with profound weakness Will call his brother to see him in the hospital Condition remains very critical Review of Systems Review of Systems: Unobtainable due to cognitive status Physical Exam Physical Exam: Very anxious, painful and short of breath Constitutional: well developed, well nourished, + ill appearing and + obese Eyes: PERRL, conjunctivae normal, anicteric sclerae ENMT: external ear and nose normal, oropharynx normal Neck: trachea midline, no thyromegaly Respiratory: + respiratory distress (Minimal distress at rest) Auscultation: + diminished lung sounds and + crackles (Bibasilar crackles) Cardiovascular: Rate/Rhythm: regular rate, regular rhythm and + tachycardic Heart Sounds: normal S1 and normal S2; no murmur Extremities: + edema (Trace edema bilaterally) Gastrointestinal (Abdomen): Inspection/Auscultation: normal bowel sounds; abdomen not distended Percussion/Palpation: abdomen soft; abdomen nontender Musculoskeletal: No acute arthritis in any joint Neurologic: normal touch/pain/proprioception and moves all extremities; not confused Psychiatric: A+Ox3, euthymic affect Lymphatic: no cervical or axillary lymphadenopathy Results & Data Results & Data ([facility]) Vital Signs (Past 12 Hours) Vital Signs Temp Pulse Pulse Resp BP Pulse Ox O2 Del Method 03/20/22 11:50 160 H 03/20/22 11:13 36.8 C 153 H 22 105/79 93 Nasal Cannula 03/20/22 07:45 Nasal Cannula 03/20/22 07:00 146 H 03/20/22 07:17 37.1 C 137 H 22 103/59 L 97 Nasal Cannula 03/20/22 05:35 36.5 C 136 H 24 120/68 98 Nasal Cannula O2 Flow Rate 03/20/22 11:50 03/20/22 11:13 2 03/20/22 07:45 4 03/20/22 07:00 03/20/22 07:17 6 03/20/22 05:35 2 Medications Administered Current Inpatient Medications Acetaminophen (Acetaminophen 325 Mg Tab) 650 mg PO Q4H PRN PRN Reason: Pain or Fever Stop: 04/16/22 20:01 Last Admin: 03/20/22 09:41 Dose: 650 mg Al Hydrox/Mg Hydrox/Simethicone (Aluminum/Magnesium Susp 30 Ml Udc) 15 ml PO Q4H PRN PRN Reason: Dyspepsia Stop: 04/16/22 20:01 Alprazolam (Alprazolam 0.5 Mg Tablet) 0.5 mg PO HS PRN PRN Reason: Anxiety Stop: 04/16/22 20:01 Last Admin: 03/17/22 21:44 Dose: 0.5 mg Apalutamide (Apalutamide 60 Mg Tablet) 240 mg PO DAILY [facility] Stop: 04/17/22 08:59 Last Admin: 03/20/22 08:24 Dose: 240 mg Fentanyl (Fentanyl 12 Mcg/Hr Tdsy) 12 mcg TD Q3D [facility] Stop: 04/01/22 08:59 Last Admin: 03/18/22 08:21 Dose: 12 mcg Fentanyl (Fentanyl 25 Mcg/Hr Tdsy) 25 mcg TD Q3D [facility] Stop: 04/01/22 08:59 Last Admin: 03/18/22 08:21 Dose: 25 mcg Magnesium Hydroxide (Magnesium Hydroxide Susp 30 Ml Udc) 30 ml PO Q12H PRN PRN Reason: Constipation Stop: 04/16/22 20:01 Metoprolol Tartrate (Metoprolol Tartrate 25 Mg Tab) 12.5 mg PO BID [facility] Stop: 04/18/22 09:59 Last Admin: 03/20/22 06:00 Dose: 12.5 mg Miscellaneous (Fentanyl Patch Remove & Waste) 1 each N/A Q72H [facility] Stop: 04/17/22 08:58 Last Admin: 03/18/22 08:21 Dose: 1 each Miscellaneous (Check Fentanyl Patch Placement) 1 each N/A QS [facility] Stop: 04/17/22 00:00 Last Admin: 03/20/22 07:50 Dose: 1 each Miscellaneous (Fentanyl Patch Remove & Waste) 1 each N/A Q72H [facility] Stop: 04/17/22 08:58 Last Admin: 03/18/22 08:22 Dose: 1 each Miscellaneous (Check Fentanyl Patch Placement) 1 each N/A QS [facility] Stop: 04/17/22 00:00 Last Admin: 03/20/22 07:50 Dose: 1 each Morphine Sulfate (Morphine Sulfate 4 Mg/Ml 1 Ml Carp\Vial) 4 mg IV Q4H PRN PRN Reason: Pain Stop: 04/03/22 10:31 Last Admin: 03/20/22 10:37 Dose: 4 mg Multivitamins/Minerals (Calcium 600mg + Vit D 400 Iu Tab) 2 tab PO QID [facility] Stop: 04/16/22 20:59 Last Admin: 03/20/22 08:28 Dose: 2 tab Ondansetron HCl (Ondansetron Inj 2 Mg/Ml 2 Ml Vial) 4 mg IV Q6H PRN PRN Reason: Nausea Stop: 04/16/22 20:01 Oxycodone HCl (Oxycodone Hcl Ir 5 Mg Tab (Immediate Release)) 10 mg PO QID PRN PRN Reason: Pain Stop: 03/31/22 20:01 Last Admin: 03/20/22 05:50 Dose: 10 mg Pantoprazole Sodium (Pantoprazole 40 Mg Tab) 40 mg PO DAILY [facility]; Protocol Stop: 04/17/22 08:59 Last Admin: 03/20/22 08:28 Dose: 40 mg Paroxetine HCl (Paroxetine Hcl 10 Mg Tab) 10 mg PO QAM [facility] Stop: 04/17/22 08:59 Last Admin: 03/20/22 08:28 Dose: 10 mg Polyethylene Glycol (Polyethylene (Miralax) 17 Gm Pack) 17 gm PO DAILY PRN PRN Reason: Constipation Stop: 04/16/22 20:01 Potassium Chloride (Potassium Chloride Crtab 20 Meq Tabcr) 20 meq PO QAM [facility] Stop: 04/19/22 08:59 Last Admin: 03/20/22 08:28 Dose: 20 meq Potassium Phosphate (Pot Phosphate Monobasic W/ Sod Tab) 4 tab PO TID [facility] Stop: 04/16/22 20:59 Last Admin: 03/20/22 08:28 Dose: 4 tab Potassium Phosphate (Pot Phosphate Monobasic W/ Sod Tab) 1 tab PO BID [facility] Stop: 04/18/22 20:59 Last Admin: 03/20/22 08:29 Dose: 1 tab Pravastatin Sodium (Pravastatin Sod 20 Mg Tab) 20 mg PO DAILY [facility] Stop: 04/17/22 08:59 Last Admin: 03/20/22 08:28 Dose: 20 mg
[2022-03-20] MEDS ORDERED: HYDROmorphone INJ 1 MG/ML SYRINGE IV PRN ×2 (13:03→14:11)
[2022-03-20] MEDS ORDERED: LORazepam 1 MG in SYRINGE 0.5 ML IV PRN (13:04)
[2022-03-20] MEDS ORDERED: ATROPINE SULFATE 1% OP SOLN 5 ML BTL SL PRN (14:15)
[2022-03-20] MEDS ORDERED: HYDROmorphone INJ 0.5 MG/0.5 ML SYR IV SCH (14:15)
[2022-03-20] MEDS ORDERED: ONDANSETRON INJ 2 MG/ML 2 ML VIAL IV PRN (14:15)
[2022-03-20] MEDS ORDERED: LORazepam 0.5 MG in SYRINGE 0.25 ML IV PRN (14:15)
--- NOTE | 2022-03-20 15:10 | Death Pronouncement Note ---
Date of Service March 20, 2022 Pronouncement Note Admission Date March 17, 2022 Asked to pronounce; The patient ceased to breathe and the monitor showed flatline. On examination- Totally unresponsive Pupils fully dilated and known reactive No pulse and or audible heart sound No respiration. He was pronounced on 03/20/2022 at 1456 hrs. The family members were present at the time of passing. Date and Time of Date of : 03/20/22 Time of : 14:56 Additional Data Attending physician: Laura Madrid MD
[2022-03-20 16:11] VITALS: PULSE 142
--- NOTE | 2022-03-20 16:30 | Discharge Summary ---
Date of Service March 20, 2022 Admission HPI Per Admitting Provider This is a 66-year-old male who has a significant past medical history of metastatic prostate cancer to bone and lung, left chest wall mass status postbiopsy noted for high-grade adenocarcinoma likely not due to prostate, significant progressive anemia and thrombocytopenia likely due to bone marrow invasion in setting of metastatic disease, HLD, IGNACIO, hypophosphatemia who presents to ED secondary to shortness of breath x4 days. Of significance patient was initially seen in heme-onc office prior to eval in ED. Upon arrival to office he was found to be hypoxic around 85% on room air with improvement to 100% on 2 L. There was also concern for lower extremity swelling and possible DVT. It was recommended he seek ED for further evaluation. It was also discussed with the patient and neighbor who was there with him in clinic that he was not a candidate for any kind of systemic treatment for prostate cancer. It was also discussed that recent biopsy from his left chest wall mass likely raises the possibility of a lower GI malignancy. A CEA level was drawn today and is pending. It is felt that they will not proceed with any further chemotherapy and overall prognosis is very poor. Hospice was discussed with patient in clinic. He states overall his SOB started about 4 days ago. He further complains of dry cough, shortness of breath with exertion and increased swelling to lower legs for past 2 days. He denies any fever, chills, sweats, lightheadedness, dizziness, chest pain, palpitations, hemoptysis, nausea, vomiting, abdominal pain, change in bowel or urinary habits. In ED patient was saturating well on 2 L of oxygen however did appear to be tachypneic. He was placed on BiPAP which made his breathing improved. Lab work notable for progressive anemia with hemoglobin of 7.0 hematocrit 21.9, platelet 36, sodium 133, glucose 129 and SARS-CoV-[address] revealed no evidence for PE however did reveal severe compression of the left central pulmonary artery due to bulky mediastinal and hilar adenopathy. Extensive metastatic disease seen throughout the chest with a moderate to large left pleural effusion progressing. Admission Exam Per Admitting Provider Physical Exam: Constitutional: Chronically ill-appearing male on BiPAP, pale, WD/WN, vitals as above, sitting up in bed, pleasant, answers questions appropriately Head: Normocephalic, Atraumatic Eyes: PERRL, conjunctivae normal, anicteric sclerae ENMT: external ear and nose normal, oropharynx normal Neck: trachea midline, no thyromegaly normal visual inspection Respiratory: On BiPAP, increased respiratory effort, lungs diminished b/l, absent LLL, no wheeze, rales, rhonchi. no accessory muscle use Cardiovascular: RRR, no murmur, +1 lower ext edema b/l Vessels: no JVD or carotid bruit Chest: large parasternal LCW mass, firm, non mobile Abdomen: normal bowel sounds, soft, nontender, no hepatosplenomegaly Musculoskeletal: no cyanosis or clubbing, arom x 4 Skin: no rashes, warm and dry normal turgor Neurologic: PERRL, EOMI, accommodation nl, no face palsy, no dysarthria CN's II-XI intact bilaterally grossly and moves all extremities Psychiatric: A+Ox3, euthymic affect : deferred Principal Diagnosis The patient . The causeS of - High-grade adenocarcinoma of the lung, metastatic prostate cancer Discharge Data Allergies Allergy/AdvReac Type Severity Reaction Status Date / Time No Known Allergies Allergy Mild Verified 03/05/22 03:10 Consultations 03/17/22 15:23 ED Decision to Admit Stat 03/17/22 15:33 Consult Pulmonology Routine Ordered Studies 03/17/22 14:23 CT angio chest PE protocol Stat 03/17/22 17:23 US venous doppler LE Routine Hospital Course (1) Prostate cancer metastatic to bone: No further treatment (2) Metastatic cancer to lung: No further chemo (3) Anemia: Received 1 unit of blood transfusion (4) Thrombocytopenia: (5) Pleural effusion: Discussed with supervisor benzene refining To reschedule any thoracentesis due to very low platelet Not a candidate for Pleurx catheter (6) Goals of care, counseling/discussion: (7) Hypocalcemia: (8) Hypophosphatemia: Plan This is a 66-year-old male who has a significant past medical history of metastatic prostate cancer to bone and lung, left chest wall mass status postbiopsy noted for high-grade adenocarcinoma likely not due to prostate, significant progressive anemia and thrombocytopenia likely due to bone marrow invasion in setting of metastatic disease, HLD, IGNACIO, hypophosphatemia who presents to ED secondary to shortness of breath x4 days. He has metastatic prostate cancer to bone, lung, recurrent malignant pleural effusion, Lleft chest wall mass recently biopsied revealing high-grade adenocarcinoma, Evidence of likely bone marrow invasion in setting of progressive anemia and thrombocytopenia, and Now with evidence on CTA of severe compression of left central pulmonary arteries due to bulky mediastinal and hilar adenopathy. He was seen by his oncology team today, Dr. Lam. Patient is not a candidate for any further systemic or palliative chemotherapy due to advanced stage of malignancy. After lengthy discussion with patient, although initially hesitant, has decided and agreed on DNR/DNI resuscitation status. He has discussed hospice with his oncologist, but has not explored options. He is agreeable to hospice services and I have reached out to case management to work on this for this patient. Overall prognosis remains very poor and goal for this patient is comfort. tax services intern on the case and hospice referral has been done Patient remains otherwise stable though very weak and lethargic He remains stable though generally very weak and lethargic The case management manager is working on hospital set up at home which will be done before Monday The brother wants to take him home even though hospice therapy is not yet complete The condition has deteriorated with increasing shortness of breath, increasing pain, tachycardia and profound weakness He was given morphine 4 mg x 2, 20 mg of IV Lasix and 0.125 mcg of IV digoxin His condition is critical and his brother was informed He is likely going to be comfort care from now Left pleural effusion Will ask our pulmonary colleagues to see patient to determine possible benefit of Pleurx cath Discussed with supervisor benzene refining He is not a candidate for thoracentesis and/or Pleurx catheter given significant thrombocytopenia Hemoglobin is 7.0 Received 1 unit PRBC Hemoglobin went up to 7.4 Hemoglobin remains stable at more than 7 Electrolytes imbalance Calcium & potassium replaced Phosphorus critically low, will replace with 21 mmol x 1 now Got another dose of K-Phos IV We will continue with oral replacement DVT ppx: SCDS given anemia, thrombocytopenia Dispo: PCU for now, consult CM to discuss and arrange hospice services, possible need to transition to inpatient hospice if pt rapidly deteriorates DNR/DNI PCP:Sole Condition remains critical and unsafe for transfer Total Time Total Time Spent Total Time Spent (In Minutes): 35 minutes Discharge Plan Discharge Items Patient Disposition: Other Date/Time: 03/20/22 14:56
--- NOTE | 2022-03-21 06:23 | Electrocardiogram Report ---
Test Reason : Blood Pressure : / mmHG Vent. Rate : 190 BPM Atrial Rate : 250 BPM P-R Int : 000 ms QRS Dur : 068 ms QT Int : 236 ms P-R-T Axes : 000 043 045 degrees QTc Int : 419 ms Poor data quality, interpretation may be adversely affected Supraventricular tachycardia Nonspecific ST and T wave abnormality Abnormal ECG When compared with ECG of 17-MAR-2022 14:04, Vent. rate has increased BY 76 BPM Supraventricular tachycardia has replaced Sinus rhythm Nonspecific T wave abnormality, worse in Anterolateral leads Confirmed by Abhijit Yuan ([id number]) on 03/21/2022 6:23:29 AM Referred By: REFERRED SELF Confirmed By:Abhijit Yuan
== END 2022-03-20 15:15 | disposition expired | DRG 180 ==
LOC: ED 12:58 → 2E 15:33 → SUATTDRO 15:33 → 2E 18:59